=== PATIENT | female | born 1955 | race Caucasian/White ===

== ENCOUNTER → 2017-10-28 09:41 | Outpatient (CLI) | payer BC, SELFPAY ==
[2017-10-28 12:26] LABS: Anion Gap 10 (5-15); BUN 16 mg/dL (7-18); BUN/Creat Ratio 20.5 RATIO (10-20); Calcium,Total 8.7 mg/dL (8.5-10.1); Chloride 106 mmol/L (98-107); Creatinine, Serum 0.78 mg/dL (0.55-1.02); EST Glomerular Filtration Rate 80 mL/min (>60); Est Glom Filt Rate - Afr Amer 96 mL/min (>60); Glucose 99 mg/dL (70-110); Potassium 3.6 mmol/L (3.5-5.1); Sodium Level 142 mmol/L (136-145)
== END ==
PROVIDERS: Nurse Practitioner Family; Family Provider Internal Medicine; PCP Internal Medicine; Visit Provider Internal Medicine
DX: Z12.31 Encounter for screening mammogram for malignant neoplasm of breast (principal)
CPT/HCPCS: 36415; 80048

== ENCOUNTER → 2018-02-10 08:06 | Outpatient (CLI) | payer BC, SELFPAY ==
[2018-02-10 12:19] LABS: Cholesterol 147 mg/dL (200); High Density Lipoprotein 50 mg/dL; T4 Free Direct 1.27 ng/dL (0.76-1.46); Thyroid Stim Hormone (TSH) 1.56 uIU/mL (0.358-3.74); Triglycerides 128 mg/dL; Very Low Density Lipoprotein 26 mg/dL (5-40)
== END ==
PROVIDERS: Family Provider Internal Medicine; PCP Internal Medicine; Visit Provider Internal Medicine
DX: R73.03 Prediabetes (principal); E78.5 Hyperlipidemia, unspecified; E03.9 Hypothyroidism, unspecified
CPT/HCPCS: 36415; 80061; 83036; 84439; 84443

== ENCOUNTER → 2018-05-05 10:13 | Outpatient (CLI) | payer BC, SELFPAY ==
[2018-05-05 12:19] LABS: Anion Gap 7 (5-15); BUN 15 mg/dL (7-18); BUN/Creat Ratio 17.2 RATIO (10-20); Chloride 106 mmol/L (98-107); Creatinine, Serum 0.87 mg/dL (0.55-1.02); EST Glomerular Filtration Rate 70 mL/min (>60); Est Glom Filt Rate - Afr Amer 85 mL/min (>60); Glucose 85 mg/dL (74-106); Potassium 3.4 mmol/L (3.5-5.1); Sodium Level 144 mmol/L (136-145)
== END ==
PROVIDERS: Family Provider Internal Medicine; PCP Internal Medicine; Visit Provider Internal Medicine
DX: I10 Essential (primary) hypertension (principal)
CPT/HCPCS: 36415; 80048

== ENCOUNTER → 2018-08-11 11:34 | Outpatient (CLI) | payer BC, SELFPAY ==
[2018-08-11 14:23] LABS: Anion Gap 9 (5-15); BUN 13 mg/dL (7-18); BUN/Creat Ratio 17.9 RATIO (10-20); Calcium,Total 8.8 mg/dL (8.5-10.1); Chloride 104 mmol/L (98-107); Creatinine, Serum 0.73 mg/dL (0.55-1.02); EST Glomerular Filtration Rate 86 mL/min (>60); Est Glom Filt Rate - Afr Amer 104 mL/min (>60); Glucose 84 mg/dL (74-106); Potassium 3.6 mmol/L (3.5-5.1); Sodium Level 140 mmol/L (136-145)
== END ==
PROVIDERS: Family Provider Internal Medicine; PCP Internal Medicine; Referring Provider Internal Medicine; Visit Provider Internal Medicine
DX: I10 Essential (primary) hypertension (principal); E87.6 Hypokalemia
CPT/HCPCS: 36415; 80048

== ENCOUNTER 2018-09-13 08:03 | Day surgery (SDC) | payer BC, SELFPAY ==
[2018-09-13] VITALS (7 sets, daily range): BP systolic 103–137; BP diastolic 58–76; PULSE 69–86; RESP 16–18; TEMP 36.6; O2SAT 98–100; BMI 27.4
--- NOTE | 2018-09-13 08:43 | H&P.OPEN ---
History of Present Illness Date of Admission: 09/13/18 The patient is a 63 year old F presents for a screening colonoscopy. Patient states she has vomited once daily, denies blood. Denies any family history of colon cancer. Patient states she had a scope 10 years ago which was negative. Past Medical/Surgical History - Planned Operation Planned Operative Procedure/s: colonoscopy open access Date of Operative Procedure: 09/13/18 Permit Signed: No S.O.S: No Is This Patient Having a Total Joint: No - Previous Hospitalizations/Surgeries HX Hospitalizations: No HX of Surgeries: hysteroscopy d&c ablation. tonsillectomy. tubal ligation. colonoscopy 10 yrs ago Any Problems With Anesthesia: No You/Your Family Experience Fever (Hyperthermia) With Anes: No Cholinesterase deficiency: No - Cardiovascular Hx Chest Pain within Last 2 months: No Hx of Irregular Heartbeat and/or Afib: No - murmur as child Hx Heart Attack: No Hx Congestive Heart Failure: No Hx Rheumatic Fever: No Hx Hypertension: Yes - controlled with med Hx Internal Defibrillator: No Hx Pacemaker: No Hx Cardiac Catheterization: No Hx Cardiac Surgery/Stents/Etc.: No Hx Stress Test: No HX Edema: No Hx Pain in Legs when Walking/Leg Cramps: No - Respiratory Chronic Cough: Yes - lisinopril cough HX of Shortness of Breath: Yes - slightly sob with 2 flights of stairs Hoarseness: No Hx Chronic Obstructive Pulmonary Disease (COPD): No Hx Asthma: No Hx Emphysema: No Hx Sleep Apnea: No Hx Oxygen Use at Home: No Hx Respiratory Tract Infection/Cold (presently): No Do You Snore Loudly (louder than talking or can be heard): Yes Do You Often Feel Tired/ Fatigued/ Sleepy Dring Daytime?: No Has Anyone Observed You Stop Breathing During Sleep?: No Result (for STOP score): Positive Hx Smoking: No Smoking Status: Never smoker - Gastrointestinal Hx Gastroesophageal Reflux: No Hx Gastrointestinal Disorders: No Hx Gastrointestinal Bleed: No Hx Ulcer: No Hx Hiatal Hernia: No Difficulty Chewing/Swallowing: No Recent Onset of Swallowing Problems: No Special diet followed at home: No Hx Unplanned Weight Loss of 20#: No HX Unplanned Weight Gain of 20#: No - Neurological Hx Seizures: No HX Syncope/Blackout Spells/Unconsciousness: No Hx CVA/Stroke: No Hx Transient Ischemic Attacks (TIA): No Hx Multiple Sclerosis: No Hx Parkinson's Disease: No Hx Head/Neck Injury: No Hx Headaches: No Hx Back Injury/Pain: Yes - occ Recent Onset of Speech Difficulty: No Restless Legs: No Does patient have nerve stimulator: No Patient instructed to have device shut off: No Rep notified?: No - Blood Disorder Hx Leukemia: No Bleeding Tendencies: No Hx Deep Vein Thrombosis: No Hx High Cholesterol: Yes - on med Blood Transmitted Disease: No Hx Hepatitis: No Hx Cirrhosis: No Hx Anemia: No Hx Blood Disorders: No - Reproduction : No Is Patient Lactating: No Hx Hysterectomy: No Hx Tubal Ligation: Yes Are You Post Menopause: Yes - Genitourinary Hx Renal Disease: No - Musculoskeletal Hx Arthritis: Yes Hx Rheumatoid Arthritis: No Hx Gout: No Recent Onset of an Orthopedic Problem: No - Endocrine Hx Diabetes: No Thyroid Disease: Yes - on med Hx Steroid Therapy: No - Psycho/Social Hx Substance Use: No Hx Alcohol Use: No Hx Anxiety: No Hx Depression: No Mental Illness: No Hx Dementia: No - Miscellaneous Hx Cancer: No Recent Exposure to Contagious Disease: No Active MRSA: No Hx of C-Diff: No Any Loose Teeth: No Allergies lisinopril Adverse Reaction (Verified 09/05/18 14:59) cough - Discharge Is Pt Admitted From a Prison, or a Senior Living: No Who Could Help: family After D/C, Where Do you Plan to Go: Return Home - From the PAT History Number of Risk Factors: 2 - Physical Exam General: Alert, Oriented x3, Cooperative, No apparent distress HEENT: Atraumatic Lungs: Normal air movement Cardiovascular: Regular rate Abdomen: Soft, Non Tender - No peritoneal signs, Non-Distended Extremities: No clubbing, No cyanosis, No edema Neurological: Cranial nerves II-XII grossly intact Psych/Mental Status: Normal Affect Vital Signs Temp Pulse Resp BP Pulse Ox 97.8 F 78 18 137/76 H 100 09/13/18 08:18 09/13/18 08:18 09/13/18 08:18 09/13/18 08:18 09/13/18 08:18 Oxygen Delivery Method Room Air Weight: 172 lb 13.478 oz Body Mass Index (BMI) 27.4 Assessment/Plan All Active Problems (Last Reviewed 11/09/18 @ 10:33 by Suki Brown) Prediabetes (Acute) 63-year-old female for screening for colon cancer Surgery Risks - Colonoscopy I discussed with the patient the risks of the procedure: Yes Risks Include but are not Limited To: Risks include but are not limited to: Bleeding, perforation requiring further surgery, inability to complete colonoscopy requiring barium enema. Patient and her no further questions at this time
--- NOTE | 2018-09-13 09:00 | COLBX_PTH ---
PATIENT: ROSELIA CERVANTES LOC: EN U#:[id number] AGE/SX: 63/F ROOM: RE09/13/[address]: Dr. Adela Garcia MD : 1955 BED: DIS: 09/13/2018 SPEC #: [id number] RECD: 09/13/18 10:42 STATUS: AG RESarbjit #: [id number] JIMBO: 09/13/18 09:[address]: Adela Garcia DEPT: SURGICAL PATHOLOGY RECD BY: Ricardo Garrett ENTERED: 09/13/18 11:29 SP TYPE: COLON BX OTHR DR: Dr. Sarah Mcgraw MD Tissues: Rectum, NOS Procedures: Surgery Specimen Level IV HEADER OPERATION: Colonoscopy PRE-OP DIAGNOSIS: Screening TISSUE SUBMITTED: Rectum biopsy MICROSCOPIC DIAGNOSIS Rectum, biopsy: Hyperplastic polyp. SJ:josephine 09/14/18 MICROSCOPIC DESCRIPTION Slides are reviewed. GROSS DESCRIPTION Received in fixative is one container labeled with the patient's name and designated rectum biopsy. The specimen consists of one irregular fragment of light madden soft tissue that measures 0.3 x 0.3 x 0.1 cm. The specimen is totally submitted in one cassette. / SJ:josephine 09/13/18 TC:1 CPT: 33665
--- NOTE | 2018-09-13 09:20 | OP.ENDO_ITS ---
Patient Name: Ledy Steel Procedure Date: 09/13/2018 8:33 AM Date of : 1955 Age: 63 Procedure: Colonoscopy Indications: Screening for colorectal malignant neoplasm Providers: Adela Garcia MD Referring MD: Sarah Mcgraw MD Medicines: Monitored Anesthesia Care Patient Profile: This is a 63 year old female. Last Colonoscopy: 10 years ago. Complications: No immediate complications. Procedure: Pre-Anesthesia Assessment: - Prior to the procedure, a History and Physical was performed, and patient medications and allergies were reviewed. The patient's tolerance of previous anesthesia was also reviewed. The risks and benefits of the procedure and the sedation options and risks were discussed with the patient. All questions were answered, and informed consent was obtained. Prior Anticoagulants: The patient has taken no previous anticoagulant or antiplatelet agents. ASA Grade Assessment: II - A patient with mild systemic disease. After reviewing the risks and benefits, the patient was deemed in satisfactory condition to undergo the procedure. After I obtained informed consent, the scope was passed under direct vision. Throughout the procedure, the patient's blood pressure, pulse, and oxygen saturations were monitored continuously. The Colonoscope was introduced through the anus and advanced to the cecum, identified by the appendiceal orifice, ileocecal valve and palpation. The colonoscopy was performed without difficulty. The patient tolerated the procedure well. The quality of the bowel preparation was good. Scope In: 8:52:01 AM Scope Withdrawal Time 0 hours 8 minutes 30 seconds Scope Out: 9:13:56 AM Total Procedure Duration Time 0 hours 21 minutes 55 seconds Findings: The perianal and digital rectal examinations were normal. A less than 5 mm polyp was found in the rectum. The polyp was sessile. The polyp was removed with a cold biopsy forceps. Resection and retrieval were complete. Non-bleeding internal hemorrhoids were found during retroflexion. The hemorrhoids were Grade I (internal hemorrhoids that do not prolapse). The exam was otherwise without abnormality. The entire examined colon appeared normal. Impression: - One less than 5 mm polyp in the rectum, removed with a cold biopsy forceps. Resected and retrieved. - Non-bleeding internal hemorrhoids. - The examination was otherwise normal. Recommendation: - Discharge patient to home. - Continue present medications. - Repeat colonoscopy in 5-10 years for surveillance based on pathology results. Procedure Code(s): --- Professional --- 24168, PT, Colonoscopy, flexible; with biopsy, single or multiple Diagnosis Code(s): --- Professional --- Z12.11, Encounter for screening for malignant neoplasm of colon K62.1, Rectal polyp K64.0, First degree hemorrhoids CPT copyright 2017 [employer]. All rights reserved. The codes documented in this report are preliminary and upon tape making machine operator review may be revised to meet current compliance requirements. MD Adela Troy MD 09/13/2018 9:20:19 AM This report has been signed electronically. Number of Addenda: 0 Note Initiated On: 09/13/2018 8:33 AM
--- OUTSIDE RECORDS SUMMARY | 2018-10-30 03:04 | XMS RPT_ITS ---
:1955 Author Organization OHIP Support Name Relationship Address Phone RENNY CERVATNES Unavailable [address] + [place] [address] R Unavailable Unavailable Unavailable RENNY CERVANTES Unavailable [address] + [place] [address] R Unavailable Unavailable Unavailable RENNY CERVANTES Unavailable [address] + [place] [address] R Unavailable Unavailable Unavailable RENNY CERVANTES Unavailable [address] + [place] [address] R Unavailable Unavailable Unavailable RENNY CERVANTES Unavailable [address] + [place] [address] R Unavailable Unavailable Unavailable RENNY CERVANTES Unavailable [address] + [place] [address] R Unavailable Unavailable Unavailable RENNY CERVANTES Unavailable [address] + [place] [address] R Unavailable Unavailable Unavailable RENNY CERVANTES Unavailable [address] [phone] [place] [address] R Unavailable Unavailable Unavailable RENNY CERVANTES Unavailable [address] [phone] [place] [address] R Unavailable Unavailable Unavailable RENNY CERVANTES Unavailable [address] + [place] [address] R Unavailable Unavailable Unavailable RENNY CERVANTES Unavailable [address] + [place] [address] R Unavailable Unavailable Unavailable RENNY CERVANTES Unavailable [address] + [place] [address] R Unavailable Unavailable Unavailable Care Team Providers Name Role Phone IRIS SANTACRUZ (CAYDEN) Attending Unavailable HARLAN, EFEWONGBE B Referring Unavailable IRIS SANTACRUZ (CAYDEN) Referring Unavailable Yoelham, Adela Attending Unavailable Yoelham, Adela Referring Unavailable Oleghe, Efewongbe Primary Care Unavailable Robotham, Adela Consulting Unavailable Oleghe, Efewongbe Attending Unavailable Oleghe, Efewongbe Referring Unavailable Oleghe, Efewongbe Primary Care Unavailable Oleghe, Efewongbe Attending Unavailable Oleghe, Efewongbe Referring Unavailable Oleghe, Efewongbe Primary Care Unavailable Macho Muñoz POND WORKER-C Attending Unavailable Oleghe, Efewongbe Referring Unavailable Oleghe, Efewongbe Primary Care Unavailable Oleghe, Efewongbe Attending Unavailable Oleghe, Efewongbe Referring Unavailable Oleghe, Efewongbe Primary Care Unavailable Oleghe, Efewongbe Attending Unavailable Oleghe, Efewongbe Referring Unavailable Oleghe, Efewongbe Primary Care Unavailable Oleghe, Efewongbe Attending Unavailable Oleghe, Efewongbe Referring Unavailable Oleghe, Efewongbe Primary Care Unavailable Oleghe, Efewongbe Attending Unavailable Oleghe, Efewongbe Referring Unavailable Oleghe, Efewongbe Primary Care Unavailable Oleghe, Efewongbe Attending Unavailable Oleghe, Efewongbe Referring Unavailable Oleghe, Efewongbe Attending Unavailable Oleghe, Efewongbe Referring Unavailable Oleghe, Efewongbe Primary Care Unavailable Nurse, Standard Attending Unavailable Oleghe, Efewongbe Referring Unavailable Robotham, Adela Attending Unavailable Robotham, Adela Referring Unavailable Oleghe, Efewongbe Primary Care Unavailable PROBLEMS PROBLEMS DATE TYPE CONDITION / CODE ATTENDING STATUS SOURCE 08/29/2018 Active Unknown / IRIS SANTACRUZ Active [facility] UNK(Unknown) (DIRECTOR WRITING) [facility] Rep[facility] 08/29/2018 Active Encounter for NA Active [facility] screening [facility] mammogram for Repository malignant neoplasm of breast / Z12.31(ICD-10) 08/11/2018 Unknown E87.6 - Oleghe, Active [facility] Hypokalemia / [facility] E87.6(ICD-10) Hospital Repository 08/11/2018 Unknown I10 - Essential Oleghe, Active [facility] (primary) [facility] hypertension / Hospital I10(ICD-10) Repository 08/11/2018 Unknown B35.1 - Tinea Oleghe, Active [facility] unguium / [facility] B35.1(ICD-10) Hospital Repository 08/11/2018 Unknown Z12.11 - Encounter Oleghe, Active [facility] for screening for [facility] malignant neoplasm [facility] of colon / Repository Z12.11(ICD-10) 08/11/2018 Unknown Z23 - Encounter Oleghe, Active [facility] for immunization / [facility] Z23(ICD-10) Hospital Repository 02/10/2018 Unknown E03.9 - Oleghe, Active [facility] Hypothyroidism, [facility] unspecified / Hospital E03.9(ICD-10) Repository 02/10/2018 Unknown R73.03 - Oleghe, Active [facility] Prediabetes / [facility] R73.03(ICD-10) Hospital Repository 02/10/2018 Unknown E78.5 - Oleghe, Active [facility] Hyperlipidemia, [facility] unspecified / Hospital E78.5(ICD-10) Repository PROCEDURES PROCEDURES No Procedure Records FoundRESULTS RESULTS OPERATIVE REPORT - Observed: 09/13/2018 Status: F Source: [facility] 9:20 AM [facility] REPOSITORY [facility] Medical Records Department [address] [place] [id number] Operative Report - Endoscopy MR#: [id number] Acct: [id number] Name: LEDY CERVANTES Rep #: [id number] : 1955 63 From: Adela Garcia MD PCP: Sarah Mcgraw MD Status: [facility] Patient Name: Ledy Cervantes Procedure Date: 09/13/2018 8:33 AM Date of : 1955 Age: 63 Procedure: Colonoscopy Indications: Screening for colorectal malignant neoplasm Providers: Adela Garcia MD Referring MD: Sarah Mcgraw MD Medicines: Monitored Anesthesia Care Patient Profile: This is a 63 year old female. Last Colonoscopy: 10 years ago. Complications: No immediate complications. Procedure: Pre-Anesthesia Assessment: - Prior to the procedure, a History and Physical was performed, and patient medications and allergies were reviewed. The patient's tolerance of previous anesthesia was also reviewed. The risks and benefits of the procedure and the sedation options and risks were discussed with the patient. All questions were answered, and informed consent was obtained. Prior Anticoagulants: The patient has taken no previous anticoagulant or antiplatelet agents. ASA Grade Assessment: II - A patient with mild systemic disease. After reviewing the risks and benefits, the patient was deemed in satisfactory condition to undergo the procedure. After I obtained informed consent, the scope was passed under direct vision. Throughout the procedure, the patient's blood pressure, pulse, and oxygen saturations were monitored continuously. The Colonoscope was introduced through the anus and advanced to the cecum, identified by the appendiceal orifice, ileocecal valve and palpation. The colonoscopy was performed without difficulty. The patient tolerated the procedure well. The quality of the bowel preparation was good. Scope In: 8:52:01 AM Scope Withdrawal Time 0 hours 8 minutes 30 seconds Scope Out: 9:13:56 AM Total Procedure Duration Time 0 hours 21 minutes 55 seconds Findings: The perianal and digital rectal examinations were normal. A less than 5 mm polyp was found in the rectum. The polyp was sessile. The polyp was removed with a cold biopsy forceps. Resection and retrieval were complete. Non-bleeding internal hemorrhoids were found during retroflexion. The hemorrhoids were Grade I (internal hemorrhoids that do not prolapse). The exam was otherwise without abnormality. The entire examined colon appeared normal. Impression: - One less than 5 mm polyp in the rectum, removed with a cold biopsy forceps. Resected and retrieved. - Non-bleeding internal hemorrhoids. - The examination was otherwise normal. Recommendation: - Discharge patient to home. - Continue present medications. - Repeat colonoscopy in 5-10 years for surveillance based on pathology results. Procedure Code(s): --- Professional --- 44990, PT, Colonoscopy, flexible; with biopsy, single or multiple Diagnosis Code(s): --- Professional --- Z12.11, Encounter for screening for malignant neoplasm of colon K62.1, Rectal polyp K64.0, First degree hemorrhoids CPT copyright 2017 [employer]. All rights reserved. The codes documented in this report are preliminary and upon propeller mechanic review may be revised to meet current compliance requirements. MD Adela Troy MD 09/13/2018 9:20:19 AM This report has been signed electronically. Number of Addenda: 0 Note Initiated On: 09/13/2018 8:33 AM 09/13/18 0920 Date Adela Garcia MD Cosigner Signature: Date (if indicated) CC: Sarah Mcgraw MD; Adela Garcia MD Date Dictated: 09/13/18832 Date Transcribed: Can Machine Operator: TR Signed COLON BIOPSY (CHOOSE Observed: 09/13/2018 Status: F Source[facility]) 9:00 AM [facility] REPOSITORY Patient: LEDY CERVANTES : 1955 (63/F) Acct Num: [id number] Phys: Jose HINOJOSA,Adela Unit Num: [id number] Loc: EN Specimen: [id number] Received: 09/13/181041 Spec Type: COLON BX TISSUES 1 TISSUES: Rectum, NOS GROSS DESCRIPTION Received in fixative is one container labeled with the patient's name and designated rectum biopsy. The specimen consists of one irregular fragment of light madden soft tissue that measures 0.3 x 0.3 x 0.1 cm. The specimen is totally submitted in one cassette. / DARLENE:josephine 09/13/18 TC:1 CPT: 26849 HEADER OPERATION: Colonoscopy PRE-OP DIAGNOSIS: Screening TISSUE SUBMITTED: Rectum biopsy MICROSCOPIC DESCRIPTION Slides are reviewed. MICROSCOPIC DIAGNOSIS Rectum, biopsy: Hyperplastic polyp. SJ:josephine 09/14/18 Signed Yg Baker 09/14/18 <signature on file> Performed By: #### PCOLBX #### [facility] [address] [place], [place], [address] HISTORY AND PHYSICAL Observed: 09/13/2018 Status: F Source: [facility] 8:45 AM [facility] REPOSITORY [facility] Medical Records Department [address] [place] [address] History and Physical 09/13/18 0843 MR#: [id number] Acct: [id number] Name: LEDY CERVANTES Rep #: [id number] : 1955 63 From: Adela Garcia MD PCP: Sarah Mcgraw MD Status: [facility] Y Location: [place] [address] History of Present Illness Date of Admission: 09/13/18 The patient is a 63 year old F presents for a screening colonoscopy. Patient states she has vomited once daily, denies blood. Denies any family history of colon cancer. Patient states she had a scope 10 years ago which was negative. Past Medical/Surgical History - Planned Operation Planned Operative Procedure/s: colonoscopy open access Date of Operative Procedure: 09/13/18 Permit Signed: No S.O.S: No Is This Patient Having a Total Joint: No - Previous Hospitalizations/Surgeries HX Hospitalizations: No HX of Surgeries: hysteroscopy d AND c ablation. tonsillectomy. tubal ligation. colonoscopy 10 yrs ago Any Problems With Anesthesia: No You/Your Family Experience Fever (Hyperthermia) With Anes: No Cholinesterase deficiency: No - Cardiovascular Hx Chest Pain within Last 2 months: No Hx of Irregular Heartbeat and/or Afib: No - murmur as child Hx Heart Attack: No Hx Congestive Heart Failure: No Hx Rheumatic Fever: No Hx Hypertension: Yes - controlled with med Hx Internal Defibrillator: No Hx Pacemaker: No Hx Cardiac Catheterization: No Hx Cardiac Surgery/Stents/Etc.: No Hx Stress Test: No HX Edema: No Hx Pain in Legs when Walking/Leg Cramps: No - Respiratory Chronic Cough: Yes - lisinopril cough HX of Shortness of Breath: Yes - slightly sob with 2 flights of stairs Hoarseness: No Hx Chronic Obstructive Pulmonary Disease (COPD): No Hx Asthma: No Hx Emphysema: No Hx Sleep Apnea: No Hx Oxygen Use at Home: No Hx Respiratory Tract Infection/Cold (presently): No Do You Snore Loudly (louder than talking or can be heard): Yes Do You Often Feel Tired/ Fatigued/ Sleepy Dring Daytime?: No Has Anyone Observed You Stop Breathing During Sleep?: No Result (for STOP score): Positive Hx Smoking: No Smoking Status: Never smoker - Gastrointestinal Hx Gastroesophageal Reflux: No Hx Gastrointestinal Disorders: No Hx Gastrointestinal Bleed: No Hx Ulcer: No Hx Hiatal Hernia: No Difficulty Chewing/Swallowing: No Recent Onset of Swallowing Problems: No Special diet followed at home: No Hx Unplanned Weight Loss of 20#: No HX Unplanned Weight Gain of 20#: No - Neurological Hx Seizures: No HX Syncope/Blackout Spells/Unconsciousness: No Hx CVA/Stroke: No Hx Transient Ischemic Attacks (TIA): No Hx Multiple Sclerosis: No Hx Parkinson's Disease: No Hx Head/Neck Injury: No Hx Headaches: No Hx Back Injury/Pain: Yes - occ Recent Onset of Speech Difficulty: No Restless Legs: No Does patient have nerve stimulator: No Patient instructed to have device shut off: No Rep notified?: No - Blood Disorder Hx Leukemia: No Bleeding Tendencies: No Hx Deep Vein Thrombosis: No Hx High Cholesterol: Yes - on med Blood Transmitted Disease: No Hx Hepatitis: No Hx Cirrhosis: No Hx Anemia: No Hx Blood Disorders: No - Reproduction : No Is Patient Lactating: No Hx Hysterectomy: No Hx Tubal Ligation: Yes Are You Post Menopause: Yes - Genitourinary Hx Renal Disease: No - Musculoskeletal Hx Arthritis: Yes Hx Rheumatoid Arthritis: No Hx Gout: No Recent Onset of an Orthopedic Problem: No - Endocrine Hx Diabetes: No Thyroid Disease: Yes - on med Hx Steroid Therapy: No - Psycho/Social Hx Substance Use: No Hx Alcohol Use: No Hx Anxiety: No Hx Depression: No Mental Illness: No Hx Dementia: No - Miscellaneous Hx Cancer: No Recent Exposure to Contagious Disease: No Active MRSA: No Hx of C-Diff: No Any Loose Teeth: No Allergies lisinopril Adverse Reaction (Verified 09/05/18 14:59) cough - Discharge Is Pt Admitted From a Prison, or a Correction: No Who Could Help: family After D/C, Where Do you Plan to Go: Return Home - From the PAT History Number of Risk Factors: 2 - Physical Exam General: Alert, Oriented x3, Cooperative, No apparent distress HEENT: Atraumatic Lungs: Normal air movement Cardiovascular: Regular rate Abdomen: Soft, Non Tender - No peritoneal signs, Non-Distended Extremities: No clubbing, No cyanosis, No edema Neurological: Cranial nerves II-XII grossly intact Psych/Mental Status: Normal Affect Vital Signs Temp Pulse Resp BP Pulse Ox 97.8 F 78 18 137/76 H 100 09/13/18 08:18 09/13/18 08:18 09/13/18 08:18 09/13/18 08:18 09/13/18 08:18 Oxygen Delivery Method Room Air Weight: 172 lb 13.478 oz Body Mass Index (BMI) 27.4 Assessment/Plan All Active Problems (Last Reviewed 08/11/18 @ 10:33 by Suki Brown) Prediabetes (Acute) 63-year-old female for screening for colon cancer Surgery Risks - Colonoscopy I discussed with the patient the risks of the procedure: Yes Risks Include but are not Limited To: Risks include but are not limited to: Bleeding, perforation requiring further surgery, inability to complete colonoscopy requiring barium enema. Patient and her no further questions at this time 09/13/18 0845 <Electronically signed by Adela Garcia MD> Date Adela Garcia MD Cosigner Signature: Date (if applicable) CC: Sarah Mcgraw MD; Adela Garcia MD Signed CNCO Observed: 08/29/2018 Status: COMPLETED Source: [place] 12:28 PM [facility] REPOSITORY HNO ID: [id number] Author: Mammography Coordinator Service: (none) Author Type: Physician Type: Letter Filed: 08/30/2018 11:32 PM Note Text: August 29, 2018 PID: [id number] Ledy Cervantes [address] [place] [address] [address] [place] [address] Dear Ms. Cervantes, We are pleased to inform you that the results of your recent breast imaging exam on 08/29/2018 are normal. Early detection of cancer is very important. We also understand recommendations regarding breast cancer screening are controversial. Please discuss with your primary care provider which strategy is best for you and whether a mammogram is right for you. Your imaging studies and report will be kept on file at [facility] as part of your permanent medical record and are available for your continuing care. Thank you for allowing us to help in meeting your health care needs. Sincerely, Dr. Mccain Interpreting Radiologist [facility] (Normal over 40) PROGRESS Observed: 08/29/2018 Status: COMPLETED Source: [place] 10:39 AM [facility] REPOSITORY HNO ID: [id number] Author: Iris Santacruz Service: (none) Author Type: Nurse Practitioner Type: Progress Notes Filed: 08/29/2018 11:15 AM Note Text: Ledy Cervantes is a 63 year old who presents for her annual gynecologic exam without complaints. Traveled to [place] and [place] this summer. Postmenopausal: Yes since age 57 HRT use: No. Last Pap: 2015 normal HPV: 2010 negative History of abnormal pap: No Last mammogram: today results pending History of abnormal mammogram: No Sexually active: Yes, occasionally Time with current partner: care home Pain with intercourse: No Postcoital bleeding: No Hot flashes: No Night sweats: No Vaginal dryness: Yes, [place] Mood swings: No Insomnia: No Exercise: walking Diet: balanced Seatbelt use: Yes Obstetric History T4 L4 SAB0 TAB0 Ectopic0 Multiple0 Live Births0 PAST MEDICAL HISTORY Diagnosis Date - Benign neoplasm of colon - Hypertension - Osteoarthrosis, unspecified whether generalized or localized, other specified sites Osteoarthritis - Other and unspecified hyperlipidemia - Unspecified hypothyroidism - Unspecified nontoxic nodular goiter PAST SURGICAL HISTORY Procedure Laterality Date - COLONOSCOPY W/BX 08/15/08 Repeat in - FNA WITH IMAGING 09/08/10 U/S FNA bilateral thyroid nodules - LIGATE FALLOPIAN TUBE - REMOVAL OF TONSILS,<12 Y/O Tonsillectomy - THERMAL ENDOMETRIAL ABLATION 2012 [facility] FAMILY HISTORY Problem Relation Age of Onset - Hypertension Mother - Thyroid Mother - Hypertension Father - Coronary Artery Disease Father cabg,valve replacement - Allergies Father - Cervical Cancer Sister - other (Pancreatic cancer) Other 45 Niece - Thyroid Sister - Thyroid Sister - Cancer Sister Lymphoma. SOCIAL HISTORY Social History Substance Use Topics - Smoking status: Never Smoker - Smokeless tobacco: Never Used Comment: No smoking in childhood or current homes. - Alcohol use No REVIEW OF SYSTEMS Abdomen: No abdominal pain, nausea, vomiting, diarrhea, or constipation. No bloating, early satiety, indigestion, or increased flatulence. Bladder: No dysuria, gross hematuria, urinary frequency, urinary urgency, or incontinence. Stress incontinence with coughing, wears pad. Breast: No breast lumps, nipple d/c, overlying skin changes, redness or skin retraction Allergies and current medication updated:Yes EXAM: BP 118/60 Ht 5' 6.5 (1.69m) Wt 175 lb (79.4kg) LMP 07/12/2011 BMI 27.83 kg/(m2). GENERAL: pleasant, female in no apparent distress HEENT: Normocephalic, atraumatic, mucus membranes moist and no lesions NECK: Supple, full range of motion, no adenopathy and thyroid normal DERMATOLOGY: Normal, without lesions, non-icteric and non-hirsute BREAST: soft, non-tender, symmetric, no dominant mass, normal nipple-areolar complex, no lymphadenopathy and no nipple discharge CHEST: Normal inspiratory effort ABDOMEN: soft, non-tender and no masses PELVIC: external genitalia normal, normal Bartholin's glands, urethra, Cochran's glands, no vulvar lesions, no cervical lesions, good vaginal support, physiologic discharge present, normal appearing perineal body and perianal region BIMANUAL: uterus normal size, shape and consistency, no adnexal masses and non-tender RECTOVAGINAL: deferred. NEURO: alert and oriented x3,exam grossly non-focal EXTREMITIES: normal ASSESSMENT/PLAN: 1) Health maintenance: Pap/HPV up to date. Mammogram ordered Mammogram up to date Nutrition, exercise and routine health maintenance exams reviewed. Calcium/Vitamin D supplementation information provided. Colon cancer screening: scheduled for this month Stress incontinence - reviewed Kegel exercises. 2) Follow up one year or sooner as needed Iris Santacruz APRN.DIRECTOR WRITING CNOV Observed: 08/29/2018 Status: COMPLETED Source: [place] 10:[address] [facility] REPOSITORY Office Visit (WOOB) LEDY CERVANTES ([id number]) 1955 F Date Time Provider Department 08/29/18 10:30 AM IRIS SANTACRUZ (CAYDEN) WOMARJORIE During your visit today, we recorded the following information about you: Blood pressure Weight Height 118/60 79.4 kg 1.689 m Iris Santacruz APRN.CNP 08/29/2018 11:15 AM Signed Ledy Cervantes is a 63 year old who presents for her annual gynecologic exam without complaints. Traveled to [place] and [place] this summer. Postmenopausal: Yes since age 57 HRT use: No. Last Pap: 2015 normal HPV: 2010 negative History of abnormal pap: No Last mammogram: today results pending History of abnormal mammogram: No Sexually active: Yes, occasionally Time with current partner: care home Pain with intercourse: No Postcoital bleeding: No Hot flashes: No Night sweats: No Vaginal dryness: Yes, [place] Mood swings: No Insomnia: No Exercise: walking Diet: balanced Seatbelt use: Yes Obstetric History T4 L4 SAB0 TAB0 Ectopic0 Multiple0 Live Births0 PAST MEDICAL HISTORY Diagnosis Date - Benign neoplasm of colon - Hypertension - Osteoarthrosis, unspecified whether generalized or localized, other specified sites Osteoarthritis - Other and unspecified hyperlipidemia - Unspecified hypothyroidism - Unspecified nontoxic nodular goiter PAST SURGICAL HISTORY Procedure Laterality Date - COLONOSCOPY W/BX 08/15/08 Repeat in - FNA WITH IMAGING 09/08/10 U/S FNA bilateral thyroid nodules - LIGATE FALLOPIAN TUBE - REMOVAL OF TONSILS,<12 Y/O Tonsillectomy - THERMAL ENDOMETRIAL ABLATION 2012 [facility] FAMILY HISTORY Problem Relation Age of Onset - Hypertension Mother - Thyroid Mother - Hypertension Father - Coronary Artery Disease Father cabg,valve replacement - Allergies Father - Cervical Cancer Sister - other (Pancreatic cancer) Other 45 Niece - Thyroid Sister - Thyroid Sister - Cancer Sister Lymphoma. SOCIAL HISTORY Social History Substance Use Topics - Smoking status: Never Smoker - Smokeless tobacco: Never Used Comment: No smoking in childhood or current homes. - Alcohol use No REVIEW OF SYSTEMS Abdomen: No abdominal pain, nausea, vomiting, diarrhea, or constipation. No bloating, early satiety, indigestion, or increased flatulence. Bladder: No dysuria, gross hematuria, urinary frequency, urinary urgency, or incontinence. Stress incontinence with coughing, wears pad. Breast: No breast lumps, nipple d/c, overlying skin changes, redness or skin retraction Allergies and current medication updated:Yes EXAM: BP 118/60 Ht 5' 6.5 (1.69m) Wt 175 lb (79.4kg) LMP 07/12/2011 BMI 27.83 kg/(m2). GENERAL: pleasant, female in no apparent distress HEENT: Normocephalic, atraumatic, mucus membranes moist and no lesions NECK: Supple, full range of motion, no adenopathy and thyroid normal DERMATOLOGY: Normal, without lesions, non-icteric and non-hirsute BREAST: soft, non-tender, symmetric, no dominant mass, normal nipple-areolar complex, no lymphadenopathy and no nipple discharge CHEST: Normal inspiratory effort ABDOMEN: soft, non-tender and no masses PELVIC: external genitalia normal, normal Bartholin's glands, urethra, Cochran's glands, no vulvar lesions, no cervical lesions, good vaginal support, physiologic discharge present, normal appearing perineal body and perianal region BIMANUAL: uterus normal size, shape and consistency, no adnexal masses and non-tender RECTOVAGINAL: deferred. NEURO: alert and oriented x3,exam grossly non-focal EXTREMITIES: normal ASSESSMENT/PLAN: 1) Health maintenance: Pap/HPV up to date. Mammogram ordered Mammogram up to date Nutrition, exercise and routine health maintenance exams reviewed. Calcium/Vitamin D supplementation information provided. Colon cancer screening: scheduled for this month Stress incontinence - reviewed Kegel exercises. 2) Follow up one year or sooner as needed Iris Santacruz APRN.CAYDEN Referring Provider: SARAH MCGRAW [[id number]] Allergies As of Date: 08/29/2018 Noted Allergy Reaction LIPITOR (ATORVASTATIN CALCIUM) 07/31/2015 14 - Other: See Comments Comments: Chalky throat Date Reviewed: 08/29/2018 Reviewed by: Iris Santacruz - Fully Assessed Reason for Visit: Yearly Exam [187] Primary Visit Diagnosis:Encounter for gynecological examination (general) (routine) without abnormal findings [Z01.419] Other Visit Diagnoses:Encounter for screening mammogram for breast cancer [Z12.31] Stress incontinence [N39.3] Order(s):ASIA SCREENING [[id number]] Order #: [id number] FUTURE Prescriptions as of 08/29/2018 Sig: AMLODIPINE 2.5 MG TABLET Take 2.5 mg by mouth once valeria* LORATADINE 10 MG TABLET Take 10 mg by mouth once jess* POTASSIUM CHLORIDE. ACYCLOVIR 400 MG TABLET Take 400 mg by mouth. LEVOTHYROXINE 88 MCG TABLET Take 1 tablet by mouth once d* ROSUVASTATIN 10 MG TABLET Take 1 tablet by mouth once d* HYDROCHLOROTHIAZIDE 25 MG TAB* TK 1 T PO QD LOSARTAN 100 MG TABLET TK 1 T PO QD LUTEIN 20 MG CAPSULE TK ONE C PO QD POTASSIUM CHLORIDE ER 10 MEQ * TK ONE C PO QD ASPIRIN 81 MG TABLET,DELAYED * 81 mg every other day. ALBUTEROL SULFATE HFA 90 MCG/* Inhale 2 Puffs as instructed * CICLOPIROX 8 % TOPICAL SOLUTI* Apply 1 application to affect* NAPROXEN 500 MG TABLET Take 1 tablet by mouth twice * LUTEIN 20 MG TABLET Take by mouth. CICLOPIROX 8 % TOPICAL SOLUTI* Apply 1 application to affect* CALCIUM CARBONATE 600 MG (1,5* Take 1 tablet by mouth once d* MULTIVITAMIN TABLET Take 1 tablet by mouth once d* Problem List As Of Date 08/29/2018 Noted Resolved OSTEOARTHROS NOS-OTHER SITE [M19.90] More... NONTOX NODUL GOITER NOS [E04.9] Hypothyroidism [E03.9] 07/31/2015 Hyperlipidemia [E78.5] INVALID FOR*02/04/2016 CALCANEAL SPUR [M77.30] INVALID FOR* Ovarian cystic mass [N83.209] INVALID FOR*07/09/2011 Endometrial thickening on ultra sound [R93.89] INVALID FOR*07/09/2011 Menorrhagia [N92.0] INVALID FOR*08/26/2017 Essential hypertension [I10] INVALID FOR* More... 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 Hyperlipidemia [E78.5] INVALID FOR* Medications Discontinued During This Encounter benzonatate (TESSALON PERLE) 100 mg * 60 c* 0 11/23/2016 08/29/2018 Route: ORAL Sig: Take 2 capsules by mouth three times daily as needed. Patient not taking: Reported on 08/26/2017 Disc: Reason for discontinue is not on file. losartan-hydrochlorothiazide (HYZAAR* 08/01/2017 08/29/2018 Class: Historical Med Sig: HYZAAR 50-12.5 MG TABS Disc: Reason for discontinue is not on file. Disposition: Return in 1 year (on 08/29/2019) for Annual Exam. Follow-up and Disposition History Recorded Encounter Status:Closed by IRIS SANTACRUZ on 08/29/18 ASIA SCREENING Observed: 08/29/2018 Status: F Source: [place] 10:25 AM [facility] REPOSITORY * * *Final Report* * * DATE OF EXAM: Aug 29 2018 10:25AM [facility] - [facility] SCREENING / PROCEDURE REASON: Encounter for screening mammogram for breast cancer * * * * Physician Interpretation * * * * RESULT: #[id number] - [facility] SCREENING BILATERAL DIGITAL SCREENING MAMMOGRAM WITH CAD: 08/29/2018 HISTORY: Encounter For Screening Mammogram For Breast Cancer /Screening Mammogram - patient reports NO breast symptoms /Priors available for comparison. RESULT: TECHNIQUE: The study was acquired using full field digital technology and interpreted from soft copy. Current study was also evaluated with a Computer Aided Detection (CAD). Comparison is made to exams dated: 08/26/2017 mammogram, 08/03/2016 mammogram, 07/30/2015 mammogram, and 09/14/2013 mammogram - [facility]. There are scattered fibroglandular elements in both breasts. No significant masses, calcifications, or other findings are seen in either breast. There has been no significant interval change. IMPRESSION: There is no mammographic evidence of malignancy. A 1 year screening mammogram is recommended. Sneha taylor/lalo:08/29/2018 12:28:32 Collaborating Supervising Physician(s): RT Juan(Александр)(M), [facility] letter sent: Normal over 40 Mammogram BI-RADS: 1 Negative Multiple national specialty organizations have released breast cancer screening guidelines for women at average risk for developing breast cancer - guidelines that are based on both evidence and opinion, yet differ on when to start and how often to screen for breast cancer. With representation from Breast Imaging, Internal Medicine, Women's Health, Family Medicine, and Medical/Surgical Oncology, the [facility] has carefully reviewed the data and reached the following consensus: 1) All women should engage in shared decision-making with their providers to decide when to start and how often to screen; 2) All women should have the opportunity to start screening mammography at age 40; 3) For women ages 45-55, we recommend annual screening mammograms; 4) For women ages 55 and over, we support both the transition from an annual to a biennial interval if this aligns more with patient's values and preferences, or continuation with annual screening; 5) All women should discuss with their providers when to stop screening mammograms. Can Machine Operator: Lalo Transcribe Date/Time: Aug 29 2018 10:06A Dictated by: SNEHA MCCAIN MD This examination was interpreted and the report reviewed and electronically signed by: SNEHA MCCAIN MD on Aug 29 2018 12:28PM EST [id number] INTERNAL MEDICINE Observed: 08/14/2018 Status: F Source: [place] OFFICE VISIT 4:29 PM [facility] [address] [place] [address] [address] [place] [address] OFFICE VISIT Date of Service: 08/11/18 MR#: [id number] Acct: [id number] Name: LEDY CERVANTES Rep #: [id number] : 1955 Provider: Sarah Mcgraw MD Age/Sex: 63/F Location: [facility] Status: Signed Intake Vital Signs08/11/18 Height 5 ft 7 in 08/11/18 Weight: 180 lb 08/11/18 Body Mass Index (BMI) 28.1 08/11/18 Blood Pressure 130/83 H 08/11/18 Blood Pressure Location Lt brachial Intake Visit Reasons: 3 MO F/U Chief Complaint: 3 Mo follow-up visit Is patient in pain?: No Allergies No Known Allergies Allergy (Unverified 08/11/18 10:31) Medications calcium carbonate-vitamin D3 600 mg (1,500 mg)-400 unit capsule cap PO 09/09/17 [History Confirmed 08/11/18] multivitamin capsule 1 cap PO QDAY 09/09/17 [History Confirmed 08/11/18] amlodipine 2.5 mg tablet 2.5 mg PO QDAY #90 tab 07/26/18 [Rx Confirmed 08/11/18] hydrochlorothiazide 25 mg tablet 25 mg PO QDAY #90 tab 07/26/18 [Rx Confirmed 08/11/18] levothyroxine 88 mcg tablet 88 mcg PO QDAY #90 tab 07/26/18 [Rx Confirmed 08/11/18] loratadine 10 mg tablet 10 mg PO QDAY PRN #90 tab 07/26/18 [Rx Confirmed 08/11/18] losartan 100 mg tablet 100 mg PO QDAY #90 tab 07/26/18 [Rx Confirmed 08/11/18] lutein 20 mg capsule 20 mg PO QDAY #90 cap 07/26/18 [Rx Confirmed 08/11/18] naproxen 500 mg tablet 500 mg PO BID PRN #120 tab 07/26/18 [Rx Confirmed 08/11/18] potassium chloride ER 10 mEq capsule,extended release 10 meq PO QDAY #90 cap 07/26/18 [Rx Confirmed 08/11/18] rosuvastatin 10 mg tablet 10 mg PO QDAY #90 tab 07/26/18 [Rx Confirmed 08/11/18] PFSH Medical History Seasonal allergies (Chronic) Prediabetes (Acute) Hypothyroid (Chronic) Hyperlipidemia (Chronic) Hypertension (Chronic) Arthritis (Acute) Thyroid nodule (Acute) Surgical History H/O tubal ligation (Acute) Hx of tonsillectomy (Acute) uterine ablasion (Acute) Family History Mother Hypertension Heart disease Myocardial infarction age 87 Thyroid disorder Hyperlipidemia Father Hyperlipidemia Hypertension Arthritis Aunt Breast cancer Social History Smoking Status: Never smoker alcohol intake: never substance use type: does not use what type of physical activity do you participate in: none HPI HPI Chief Complaint: 3 Mo follow-up visit Details: LEDY CERVANTES, is a 63yo F who presents to the office today for follow-up of her chronic medical conditions. During her last visit she had adjustments to her amlodipine. Blood pressure has remained stable. Blood pressure during his visit is 130/83 mmHg. She denies palpitations, chest pain or shortness of breath. Reports persistent postnasal drip and cough. Currently following up with her ENT due to chronic allergies and is on weekly allergy shots. She does not believe these are helping. She has been on the shots for over a year. ROS Const Constitutional: No chills, fatigue, fever(s), frequent falls, malaise, weakness, sleep problems or change in appetite Eyes Eyes: No blurry vision, change in vision, double vision, discharge or visual disturbances ENT ENT: Positive for post nasal drip; no abnormal hearing, ear pain, ear pressure, tinnitus or dizziness/vertigo Resp Respiratory: No cough, shortness of breath or wheezing Cardio Cardiology: No chest pain at rest, chest pain with exertion, shortness of breath, dyspnea on exertion, generalized swelling, irregular heart rhythm, lightheadedness, orthopnea, fast heart rate or palpitations Gastro GI: No abdominal pain, change in bowel habits, constipation, diarrhea, nausea/dyspepsia or vomiting Genitourinary-Female: No difficulty urinating, burning urination, painful urination, urinary incontinence, urinary frequency, urinary urgency, urinary hesitancy, urinary retention, Frequent nighttime urination/ nocturia, sexual problems, genital lesions, abnormal vaginal bleeding, pelvic pain, vaginal dryness, vaginal odor or Vaginal Itching Musc Musculoskeletal: No joint pain, back pain, joint swelling, limited range of motion, numbness or tingling Skin Skin: No change in skin color, itching, rash or wounds Breast Breast: No breast lump or breast pain Neuro Neurology: No frequent falls, weakness, abnormal hearing, numbness, tingling, unsteady gait/balance, dizziness, loss of vision, memory loss or visual disturbances Psych Psychiatric: No memory loss, No anxiety, No change in appetite, No depression, No Thoughts of harming yourself/Others Endo Endocrine: No fatigue, heat intolerance, increased thirst/drinking, increased hunger or increased urination Aller/Imm Allergy/Immunologic: No wheezing, itchy eyes or seasonal allergy symptoms Dominick/Lymp Hematologic/Lymphatic: No easy bleeding, easy bruising or enlarged lymph nodes Exam Const General: cooperative, no acute distress Orientation: alert, awake, oriented x3 HENMT Head: atraumatic, normocephalic Ears: hearing grossly normal bilaterally Resp Effort AND Inspection: normal respiratory effort, able to speak in complete sentences Auscultation: Bilateral: Clear to Auscultation Cardio Rate: regular rate Rhythm: regular rhythm Heart Sounds: S1 normal, S2 normal GI Palpation: soft, no hepatosplenomegaly Neuro General: alert, awake, oriented x3, CN's II-XI intact bilaterally Extrem General: no clubbing, cyanosis or edema Psych Appearance: grossly normal Mental Status: mental status grossly normal Affect: normal affect Office Meds Flucelvax Quad 0726-4511 (PF) Performing Provider: Sarah Mcgraw MD Administered by: Anne Ayala on 08/11/18 11:03 Dose Route Admin Location Lot Number Expiration Date NDC Balance Wheel Motion Inspector 60 mcg IM left deltoid [id number] 04/01/19 35977-907-81 [employer]. Assessment AND Plan 1. Essential hypertension I10 Plan Blood pressure is stable. Currently tolerating amlodipine at 2.5 mg daily. Also on potassium supplements due to an episode of hyperkalemia. BMP ordered. Continue current medications and lifestyle/dietary modifications Orders Orders: 2. Seasonal allergies J30.2 Plan Chronic. Currently follows up with ENT and has weekly allergy shots. She has had this for over a year. Does not believe this is helping much. I have advised her to bring this up with her ENT specialist. Follow-up at next visit. 3. Health care maintenance Z00.00 Plan Flu shot given. Mammogram scheduled for later on in a month. 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 Referred to general surgery for screening colonoscopy. This note was generated with [employer] dictation software. It may contain incorrect words, spelling, and punctuation that were not noted in checking the note before signing. Plan Detail Other Orders Orders: Referrals: Other Medications Discontinued: Flucelvax Quad 7520-8660 (PF) (flu vac qs 2018(4 yr60 mcg (0.5 mL) IM ONCE 1 mL 0RF NS Z23 up)CD(PF)) Discontinued Reason: Office Medicat ion has been Documented as given Coding Level of Care Code Off vis,est,level 3 Diagnoses Essential hypertension I10 Hypertension type: essential hypertension Seasonal allergies J30.2 Health care maintenance Z00.00 08/14/18 1629 <Electronically signed by Sarah Mcgraw MD> Date Sarah Rivera Signature: Date (if applicable) CC: BASIC METABOLIC Collected: 08/11/2018 Status: F Source: HOSSEIN PROFILE ([facility]) 11:38 AM [facility] REPOSITORY TYPE CODE TESTS RESULT OUT OF RANGE REFERENCE UNITS LAB L501.0100 74-106 mg/dL Normal GLU 84 Result Comment: Please note revised GLUCOSE reference range effective 2017. LAB L501.1000 7-18 mg/dL Normal BUN 13 LAB L501.1100 0.55-1.02 mg/dL Normal CREAT,SERUM 0.73 Result Comment: The validity of the calculated GFR AND GFRAA in patients over 70 years has not been determined. Clinical correlation is essential. LAB L501.1110 >60 mL/min Normal EST GFR 86 Result Comment: Non- GFR Calc LAB L501.1115 >60 mL/min Normal EST GFR - AA 104 Result Comment: GFR Calc LAB L501.1300 10-20 RATIO Normal BUN/CRE 17.9 LAB L501.2200 8.5-10.1 mg/dL CA Normal 8.8 LAB L501.5300 136-145 mmol/L NA Normal 140 LAB L501.5600 3.5-5.1 mmol/L K Normal 3.6 LAB L501.5900 98-107 mmol/L CL Normal 104 LAB L501.6100 21.0-32.0 mmol/L Normal CO2 27.0 LAB L501.6200 5-15 Normal GAP 9 Performed By: #### L500.2500 #### [facility] [address] [place], [address] INTERNAL MEDICINE Observed: 05/08/2018 Status: F Source: [place] OFFICE VISIT 4:33 PM [facility] REPOSITORY [facility] [address] [place] [address] [place] [address] OFFICE VISIT Date of Service: 05/05/18 MR#: [id number] Acct: [id number] Name: LEDY CERVANTES Rep #: [id number] : 1955 Provider: Sarah Mcgraw MD Age/Sex: 63/F Location: [facility] Status: Signed Intake Vital Signs05/05/18 Height 5 ft 7 in Intake Visit Reasons: 3 MO FU Chief Complaint: follow-up visit Is patient in pain?: No Allergies No Known Allergies Allergy (Unverified 03/03/18 08:58) Medications blood pressure test kit-large cuff See Dose Instructions .ROUTE .MEDSUPPLY #1 ea 09/09/17 [Rx Confirmed 05/05/18] calcium carbonate-vitamin D3 600 mg (1,500 mg)-400 unit capsule cap PO 09/09/17 [History Confirmed 05/05/18] levothyroxine 88 mcg tablet 88 mcg PO QDAY #90 tab 09/09/17 [Rx Confirmed 05/05/18] loratadine 10 mg tablet 10 mg PO QDAY 09/09/17 [History Confirmed 05/05/18] lutein 20 mg capsule 20 mg PO QDAY 09/09/17 [History Confirmed 05/05/18] multivitamin capsule 1 cap PO QDAY 09/09/17 [History Confirmed 05/05/18] rosuvastatin 10 mg tablet 10 mg PO QDAY #90 tab 09/09/17 [Rx Confirmed 05/05/18] hydrochlorothiazide 25 mg tablet 25 mg PO QDAY #90 tab 11/04/17 [Rx Confirmed 05/05/18] losartan 100 mg tablet 100 mg PO QDAY #90 tab 11/04/17 [Rx Confirmed 05/05/18] amlodipine 5 mg tablet 2.5 mg PO QDAY #90 tab 05/05/18 [Rx Confirmed 05/05/18] naproxen 500 mg tablet 500 mg PO BID PRN #60 tab 05/05/18 [Rx Confirmed 05/05/18] PFSH Medical History Seasonal allergies (Chronic) Prediabetes (Acute) Hypothyroid (Chronic) Hyperlipidemia (Chronic) Hypertension (Chronic) Arthritis (Acute) Thyroid nodule (Acute) Surgical History H/O tubal ligation (Acute) Hx of tonsillectomy (Acute) uterine ablasion (Acute) Family History Mother Hypertension Heart disease Myocardial infarction age 87 Thyroid disorder Hyperlipidemia Father Hyperlipidemia Hypertension Arthritis Aunt Breast cancer Social History Smoking Status: Never smoker alcohol intake: never substance use type: does not use what type of physical activity do you participate in: none HPI HPI Chief Complaint: follow-up visit Details: LEDY CERVANTES, is a 63 F who presents to the office today for follow-up of her chronic medical conditions. She has no acute concerns at this time. She was started on amlodipine during her last visit due to poorly controlled blood pressure. Her blood pressure is well controlled at this time however she states that she has had problems with the amlodipine. Currently on 5 mg, she reports swelling of the hands and fatigue which he attributes to amlodipine. She otherwise feels well and denies swelling of the lower extremities. ROS Const Constitutional: No weight change, body ache, chills, fatigue, sleep problems, fever(s), change in appetite, snoring, weakness, frequent falls, headache(s) or excessive sweating Eyes Eyes: No change in vision, eye pain, light sensitivity or blurry vision ENT ENT: No headache(s), abnormal hearing, ear pain, tinnitus, nasal congestion, sore throat or neck pain Resp Respiratory: No snoring, shortness of breath or wheezing Cardio Cardiology: No excessive sweating, chest pain at rest, chest pain with exertion, shortness of breath, dyspnea on exertion, palpitations, orthopnea or lightheadedness Gastro GI: No abdominal pain, change in bowel habits, constipation, diarrhea, vomiting, nausea/dyspepsia or cramping Genitourinary-Female: No burning urination, painful urination, urinary frequency, abnormal vaginal bleeding, pelvic pain or other Musc Musculoskeletal: No neck pain, abnormal walking, joint pain, limited range of motion or tingling Skin Skin: Positive for nail changes (left big toe has fungus); no redness, dry skin, itching, lesions, wounds or rash Neuro Neurology: No weakness, frequent falls, headache(s), abnormal hearing, abnormal walking, tingling, abnormal speech, dizziness or memory loss Psych Psychiatric: No change in appetite, No memory loss, No anxiety, No depression, No Thoughts of harming yourself/Others Endo Endocrine: No fatigue, excessive sweating, cold intolerance, increased thirst/drinking, heat intolerance, flushing or increased hunger Aller/Imm Allergy/Immunologic: Positive for seasonal allergy symptoms; no wheezing, itchy eyes or hives Dominick/Lymp Hematologic/Lymphatic: No easy bleeding, easy bruising or enlarged lymph nodes Exam Const General: cooperative, no acute distress Orientation: alert, awake, oriented x3 HENMT Head: atraumatic, normocephalic Ears: hearing grossly normal bilaterally Resp Effort AND Inspection: normal respiratory effort, able to speak in complete sentences Auscultation: Bilateral: Clear to Auscultation Cardio Rate: regular rate Rhythm: regular rhythm Heart Sounds: S1 normal, S2 normal GI Palpation: soft, no hepatosplenomegaly Neuro General: alert, awake, oriented x3, CN's II-XI intact bilaterally Extrem General: no clubbing, cyanosis or edema Psych Appearance: grossly normal Mental Status: mental status grossly normal Affect: normal affect Assessment AND Plan 1. Essential hypertension I10 Plan Well-controlled. However patient is not very tolerant of amlodipine. Reduce it 2.5 mg if symptoms still persist at this dose, will switch to low-dose clonidine. Continue lifestyle modifications. Advised to continue blood pressure log if she notes persistent elevated blood pressure at current dose she is advised to call. Follow-up in 3 months Orders Orders: 2. Hyperlipidemia E78.5 Plan Stable. Continue current medication and lifestyle modifications. Repeat in 3 months 3. Toenail fungus B35.1 Plan She has tried oral medications without any significant improvement. Surgery had been recommended in the past however patient declined. 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 Will follow. This note was generated with [employer] dictation software. It may contain incorrect words, spelling, and punctuation that were not noted in checking the note before signing. Plan Detail Other Medications New: Changed: Coding Level of Care Code Off vis,est,level 3 Diagnoses Essential hypertension I10 Hypertension type: essential hypertension Hyperlipidemia E78.5 Toenail fungus B35.1 05/08/18 1633 <Electronically signed by Sarah Mcgraw MD> Date Sarah Mcgraw MD Cosigner Signature: Date (if applicable) CC: BASIC METABOLIC Collected: 05/05/2018 Status: F Source: HOSSEIN PROFILE ([facility]) 10:19 AM [facility] REPOSITORY TYPE CODE TESTS RESULT OUT OF RANGE REFERENCE UNITS LAB L501.0100 74-106 mg/dL Normal GLU 85 Result Comment: Please note revised GLUCOSE reference range effective 2017. LAB L501.1000 7-18 mg/dL Normal BUN 15 LAB L501.1100 0.55-1.02 mg/dL Normal CREAT,SERUM 0.87 Result Comment: The validity of the calculated GFR AND GFRAA in patients over 70 years has not been determined. Clinical correlation is essential. LAB L501.1110 >60 mL/min Normal EST GFR 70 Result Comment: Non- GFR Calc LAB L501.1115 >60 mL/min Normal EST GFR - AA 85 Result Comment: GFR Calc LAB L501.1300 10-20 RATIO Normal BUN/CRE 17.2 LAB L501.2200 8.5-10.1 mg/dL CA Normal 9.0 LAB L501.5300 136-145 mmol/L NA Normal 144 LAB L501.5600 3.5-5.1 mmol/L Low K 3.4 LAB L501.5900 98-107 mmol/L CL Normal 106 LAB L501.6100 21.0-32.0 mmol/L Normal CO2 31.0 LAB L501.6200 5-15 Normal GAP 7 Performed By: #### L500.2500 #### [facility] [address] [place], [address] OFFICE VISIT REPORT Observed: 03/14/2018 Status: F Source: HOSSEIN 1:27 PM [facility] REPOSITORY [facility] [address] [place] [address] OFFICE VISIT Date of Service: 03/03/18 MR#: [id number] Acct: [id number] Patient: LEDY CERVANTES Rep #: [id number] : 1955 Provider: Sarah Mcgraw MD Age/Sex: 63/F Location: [facility] Status: Signed Intake Vital Signs03/03/18 Height 5 ft 7 in 03/03/18 Weight: 175 lb 03/03/18 Body Mass Index (BMI) 27.3 Intake Visit Reasons: BP check Chief Complaint: BP Check Allergies No Known Allergies Allergy (Unverified 03/03/18 08:58) Medications blood pressure test kit-large cuff See Dose Instructions .ROUTE .MEDSUPPLY #1 ea 09/09/17 [Rx Confirmed 03/03/18] calcium carbonate-vitamin D3 600 mg (1,500 mg)-400 unit capsule cap PO 09/09/17 [History Confirmed 03/03/18] levothyroxine 88 mcg tablet 88 mcg PO QDAY #90 tab 09/09/17 [Rx Confirmed 03/03/18] loratadine 10 mg tablet 10 mg PO QDAY 09/09/17 [History Confirmed 03/03/18] lutein 20 mg capsule 20 mg PO QDAY 09/09/17 [History Confirmed 03/03/18] multivitamin capsule 1 cap PO QDAY 09/09/17 [History Confirmed 03/03/18] rosuvastatin 10 mg tablet 10 mg PO QDAY #90 tab 09/09/17 [Rx Confirmed 03/03/18] hydrochlorothiazide 25 mg tablet 25 mg PO QDAY #90 tab 11/04/17 [Rx Confirmed 03/03/18] losartan 100 mg tablet 100 mg PO QDAY #90 tab 11/04/17 [Rx Confirmed 03/03/18] amlodipine 5 mg tablet 5 mg PO QDAY #30 tab 02/21/18 [Rx Confirmed 03/03/18] Nursing Note Pt brought BP log. She also states that there are times when she gets up from sitting she gets dizziness. Talked with Dr Mcgraw AND if this continues or doesn't lessen let us know. 03/14/18 1327 <Electronically signed by Sarah Mcgraw MD> Date Sarah Mcgraw MD Cosigner Signature: Date (if applicable) CC: OFFICE VISIT REPORT Observed: 02/21/2018 Status: F Source: HOSSEIN 12:[address] [place] [address] OFFICE VISIT Date of Service: 02/21/18 MR#: [id number] Acct: [id number] Patient: LEDY CERVANTES Rep #: [id number] : 1955 Provider: Macho Muñoz NP Age/Sex: 63/F Location: [facility] Status: Signed Intake Vital Signs02/21/18 Height 5 ft 7 in Intake Visit Reasons: BP CK Chief Complaint: follow-up visit BP Allergies No Known Allergies Allergy (Unverified 02/07/18 09:06) Medications blood pressure test kit-large cuff See Dose Instructions .ROUTE .MEDSUPPLY #1 ea 09/09/17 [Rx Confirmed 09/09/17] calcium carbonate-vitamin D3 600 mg (1,500 mg)-400 unit capsule cap PO 09/09/17 [History Confirmed 02/07/18] levothyroxine 88 mcg tablet 88 mcg PO QDAY #90 tab 09/09/17 [Rx Confirmed 02/07/18] loratadine 10 mg tablet 10 mg PO QDAY 09/09/17 [History Confirmed 02/07/18] lutein 20 mg capsule 20 mg PO QDAY 09/09/17 [History Confirmed 02/07/18] multivitamin capsule 1 cap PO QDAY 09/09/17 [History Confirmed 02/07/18] rosuvastatin 10 mg tablet 10 mg PO QDAY #90 tab 09/09/17 [Rx Confirmed 02/07/18] hydrochlorothiazide 25 mg tablet 25 mg PO QDAY #90 tab 11/04/17 [Rx Confirmed 02/07/18] losartan 100 mg tablet 100 mg PO QDAY #90 tab 11/04/17 [Rx Confirmed 02/07/18] mupirocin 2 % topical ointment 1 applic TOPICAL TID 10 Days #22 g 02/07/18 [Rx Confirmed 02/07/18] amlodipine 5 mg tablet 5 mg PO QDAY #30 tab 02/21/18 [Rx Confirmed 02/21/18] Nurse's Note: Pt. returns today for a recheck of her BP. It read 152/80 left arm with the manual cuff. Pt did not remember to bring her home cuff for a direct compare reading, but she did bring a log of her readings over the last two weeks. I advised pt that I would report back to Dr. Mcgraw and follow-up with her as recommended. Pt stated understanding. Assessment AND Plan Plan Added Norvasc 5 mg daily, patient will follow-up in 2 weeks for nurse visit with her blood pressure log as well Medications New: 02/21/18 1258 <Electronically signed by Macho SETH> Date Macho SETH Cosigner Signature: Date (if applicable) CC: HEMOGLOBIN A1C Collected: 02/10/2018 Status: F Source: [place] 8:13 AM [facility] REPOSITORY TYPE CODE TESTS RESULT OUT OF RANGE REFERENCE UNITS LAB L501.9985 4.2-6.3 % Normal HGB A1C 6.0 Performed By: #### L501.9985 #### [facility] [address] [place], [place], [address] LIPID PROFILE Collected: 02/10/2018 Status: F Source: [place] 8:13 AM [facility] REPOSITORY TYPE CODE TESTS RESULT OUT OF RANGE REFERENCE UNITS LAB L501.4900 200 mg/dL Normal CHOL 147 Result Comment: <200 mg/dL Desirable 200-240 mg/dL Borderline >240 mg/dL High Risk LAB L501.5000 mg/dL Normal TRIG 128 Result Comment: The drugs N-Acetylcysteine and Metamizole may falsely depress this assay. Serum Triglycerides Reference Interval Normal <150 mg/dL Borderline high 150 - 199 mg/dL High 200 - 499 mg/dL Very High > or = 500 mg/dL LAB L501.6400 mg/dL Normal HDL 50 Result Comment: The drugs N-Acetylcysteine and Metamizole may falsely depress this assay. Reference Range HDL <40 mg/dL Low HDL Cholesterol HDL >or= 60 mg/dL High HDL Cholesterol LAB L501.6500 0-130 mg/dL Normal LDL 71 LAB L501.6600 5-40 mg/dL Normal VLDL 26 Performed By: #### L500.4100, L501.9520, L506.0400 #### [facility] [address] [place], [address] THYROID STIM HORMONE Collected: 02/10/2018 Status: F Source: [facility] ([facility]) 8:13 AM [facility] REPOSITORY TYPE CODE TESTS RESULT OUT OF RANGE REFERENCE UNITS LAB L501.9520 0.358-3.74 uIU/mL Normal TSH 1.56 Performed By: #### L500.4100, L501.9520, L506.0400 #### [facility] [address] [place], [address] T4 FREE DIRECT Collected: 02/10/2018 Status: F Source: [facility]IN 8:13 AM [facility] REPOSITORY TYPE CODE TESTS RESULT OUT OF RANGE REFERENCE UNITS LAB L506.0400 0.76-1.46 ng/dL Normal T4 FREE 1.27 DIRECT Performed By: #### L500.4100, L501.9520, L506.0400 #### [facility] [address] [place], [address] INTERNAL MEDICINE Observed: 02/07/2018 Status: F Source: HOSSEIN OFFICE VISIT 3:17 PM [facility] REPOSITORY [facility] [address] [place] [address] [place] [address] OFFICE VISIT Date of Service: 02/07/18 MR#: [id number] Acct: [id number] Name: LEDY CERVANTES Rep #: [id number] : 1955 Provider: Macho Muñoz NP Age/Sex: 62/F Location: [facility] Status: Signed Intake Vital Signs02/07/18 Body Mass Index (BMI) 27.2 02/07/18 Blood Pressure 144/84 Intake Visit Reasons: 3 MO F/U Chief Complaint: follow-up visit BP Is patient in pain?: No Allergies No Known Allergies Allergy (Unverified 02/07/18 09:06) Medications blood pressure test kit-large cuff See Dose Instructions .ROUTE .MEDSUPPLY #1 ea 09/09/17 [Rx Confirmed 09/09/17] calcium carbonate-vitamin D3 600 mg (1,500 mg)-400 unit capsule cap PO 09/09/17 [History Confirmed 02/07/18] levothyroxine 88 mcg tablet 88 mcg PO QDAY #90 tab 09/09/17 [Rx Confirmed 02/07/18] loratadine 10 mg tablet 10 mg PO QDAY 09/09/17 [History Confirmed 02/07/18] lutein 20 mg capsule 20 mg PO QDAY 09/09/17 [History Confirmed 02/07/18] multivitamin capsule 1 cap PO QDAY 09/09/17 [History Confirmed 02/07/18] rosuvastatin 10 mg tablet 10 mg PO QDAY #90 tab 09/09/17 [Rx Confirmed 02/07/18] hydrochlorothiazide 25 mg tablet 25 mg PO QDAY #90 tab 11/04/17 [Rx Confirmed 02/07/18] losartan 100 mg tablet 100 mg PO QDAY #90 tab 11/04/17 [Rx Confirmed 02/07/18] mupirocin 2 % topical ointment 1 applic TOPICAL TID 10 Days #22 g 02/07/18 [Rx Confirmed 02/07/18] PFSH Medical History Seasonal allergies (Chronic) Prediabetes (Acute) Hypothyroid (Chronic) Hyperlipidemia (Chronic) Hypertension (Chronic) Arthritis (Acute) Thyroid nodule (Acute) Surgical History H/O tubal ligation (Acute) Hx of tonsillectomy (Acute) uterine ablasion (Acute) Family History Mother Hypertension Heart disease Myocardial infarction age 87 Thyroid disorder Hyperlipidemia Father Hyperlipidemia Hypertension Arthritis Aunt Breast cancer Social History Smoking Status: Never smoker alcohol intake: never substance use type: does not use what type of physical activity do you participate in: none HPI HPI Chief Complaint: follow-up visit BP Details: LEDY CERVANTES, is a 62 F who presents to the office today for a follow-up of her high blood pressure. She has a past medical history as listed above. The patient states that her blood pressures have been well controlled at home when she checks them and average 120s-130s systolic over 80s diastolic. However her blood pressure is elevated today in the office at 159/87. She denies any symptoms of hypertension. She does state that she has an acute complaint as well of yellow crusting in the corners of her mouth. She states this is been going on for the past week or so and has been progressively worsening. She has tried ryko-xum-ptvnche Abreva thinking that her cold sores without much relief. She denies any other aggravating or alleviating signs and symptoms. She denies any exposure to sick contacts. The patient otherwise denies any fever, chills, nausea, vomiting, shortness of breath, chest pain or pressure, palpitations, orthopnea, lower extremity edema, syncope or presyncopal episodes. ROS Const Constitutional: No chills, fatigue, fever(s), frequent falls, malaise, weakness, sleep problems or change in appetite Eyes Eyes: No blurry vision, change in vision, double vision, discharge or visual disturbances ENT ENT: No abnormal hearing, ear pain, ear pressure, tinnitus or dizziness/vertigo Resp Respiratory: Positive for cough; no shortness of breath or wheezing Cardio Cardiology: No chest pain at rest, chest pain with exertion, shortness of breath, dyspnea on exertion, generalized swelling, irregular heart rhythm, lightheadedness, orthopnea, fast heart rate or palpitations Gastro GI: No abdominal pain, change in bowel habits, constipation, diarrhea, nausea/dyspepsia or vomiting Genitourinary-Female: No difficulty urinating, burning urination, painful urination, urinary incontinence, urinary frequency, urinary urgency, urinary hesitancy, urinary retention, Frequent nighttime urination/ nocturia, sexual problems, genital lesions, abnormal vaginal bleeding, pelvic pain, vaginal dryness, vaginal odor or Vaginal Itching Musc Musculoskeletal: Positive for joint pain (Arthritis pain all over); no back pain, joint swelling, limited range of motion, muscle weakness, numbness or tingling Skin Skin: No change in skin color, itching, rash or wounds Breast Breast: No breast lump or breast pain Neuro Neurology: No frequent falls, weakness, abnormal hearing, numbness, tingling, unsteady gait/balance, dizziness, loss of vision, memory loss or visual disturbances Psych Psychiatric: No memory loss, No anxiety, No change in appetite, No depression, No Thoughts of harming yourself/Others Endo Endocrine: No fatigue, heat intolerance, increased thirst/drinking, increased hunger or increased urination Aller/Imm Allergy/Immunologic: No wheezing, itchy eyes or seasonal allergy symptoms Dominick/Lymp Hematologic/Lymphatic: No easy bleeding, easy bruising or enlarged lymph nodes Exam Const General: cooperative, comfortable, no acute distress Nutritional Appearance: average body habitus, well nourished Orientation: alert, oriented x3 Limitations: mental status not altered Resp Effort AND Inspection: normal respiratory effort, able to speak in complete sentences, normal respiratory pattern, symmetric chest movement, no audible wheezes, no cough Auscultation: Bilateral: Clear to Auscultation Cardio Palpation: normal PMI Rate: regular rate Heart Sounds: S1 normal, S2 normal, normal S1 and S2, no click, no gallops, no murmurs, no rubs Musc Musculoskeletal: No muscle weakness Skin Other: Yellow crusting noted in bilateral corners of external mouth extending past the lips, consistent with that of impetigo Neuro General: alert, awake, oriented x3, CN's II-XI intact bilaterally Speech: speech normal Gait: normal gait Motor: muscle tone normal throughout Extrem General: normal to inspection, normal gait, no edema, no pedal edema Psych Appearance: grossly normal Mental Status: mental status grossly normal Affect: normal affect Attitude: cooperative Thought Process: normal Assessment AND Plan 1. Essential hypertension I10 Plan The patient's blood pressure is elevated today in the office, however she states that it is well controlled at home. Possible white coat syndrome. Prior to any adjustment of her medications instructed her to check her blood pressure daily at various times during the day over the next 2 weeks and follow-up in 2 weeks for a nurse visit blood pressure check. If home blood pressure log and blood pressure remains elevated at that time, will consider adjusting her antihypertensive regimen. Instructed on low salt intake as well. Patient verbalized understanding. Patient will follow-up in 3 months for her routine appointment. 2. Impetigo L01.00 Plan Based on clinical exam, the patient does have impetigo. Bactroban 3 times daily was ordered for 10 days patient instructed to notify our office if this does not clear up in that timeframe. Patient verbalized understanding. Medications New: Plan Detail Additional Comments Instructed patient to get her blood work done that was ordered prior Follow Up 2 weeks nurse visit 3 months routine Coding Level of Care Code Off vis,est,level 3 Diagnoses Essential hypertension I10 Hypertension type: essential hypertension Impetigo L01.00 02/07/18 1517 <Electronically signed by Macho SETH> Date Macho SETH Cosigner Signature: Date (if applicable) CC: INTERNAL MEDICINE Observed: 11/04/2017 Status: F Source: [facility] OFFICE VISIT 1:48 PM [facility] [address] [address] OFFICE VISIT Date of Service: 11/04/17 MR#: [id number] Acct: [id number] Name: LEDY CERVANTES Rep #: [id number] : 1955 Provider: Sarah Mcgraw MD Age/Sex: 62/F Location: [facility] Status: Signed Intake Vital Signs11/04/17 Height 5 ft 7 in 11/04/17 Weight: 174 lb 11/04/17 Body Mass Index (BMI) 27.2 11/04/17 Blood Pressure 144/84 11/04/17 Blood Pressure Location Lt brachial Intake Visit Reasons: 3 M FU Allergies No Known Allergies Allergy (Unverified 09/09/17 13:08) Medications blood pressure test kit-large cuff See Dose Instructions .ROUTE .MEDSUPPLY #1 ea 09/09/17 [Rx Confirmed 09/09/17] calcium carbonate-vitamin D3 600 mg (1,500 mg)-400 unit capsule cap PO 09/09/17 [History Confirmed 09/09/17] fluticasone 50 mcg/actuation nasal spray,suspension 2 spray INTRANASAL ONCE 09/09/17 [History Confirmed 09/09/17] levothyroxine 88 mcg tablet 88 mcg PO QDAY #90 tab 09/09/17 [Rx Confirmed 09/09/17] loratadine 10 mg tablet 10 mg PO QDAY 09/09/17 [History Confirmed 09/09/17] lutein 20 mg capsule 20 mg PO QDAY 09/09/17 [History Confirmed 09/09/17] multivitamin capsule 1 cap PO QDAY 09/09/17 [History Confirmed 09/09/17] rosuvastatin 10 mg tablet 10 mg PO QDAY #90 tab 09/09/17 [Rx Confirmed 09/09/17] hydrochlorothiazide 25 mg tablet 25 mg PO QDAY #90 tab 11/04/17 [Rx Confirmed 11/04/17] losartan 100 mg tablet 100 mg PO QDAY #90 tab 11/04/17 [Rx Confirmed 11/04/17] PFSH Medical History Seasonal allergies (Chronic) Prediabetes (Acute) Hypothyroid (Chronic) Hyperlipidemia (Chronic) Hypertension (Chronic) Arthritis (Acute) Thyroid nodule (Acute) Surgical History H/O tubal ligation (Acute) Hx of tonsillectomy (Acute) uterine ablasion (Acute) Family History Mother Hypertension Heart disease Myocardial infarction age 87 Thyroid disorder Hyperlipidemia Father Hyperlipidemia Hypertension Arthritis Aunt Breast cancer Social History Smoking Status: Never smoker alcohol intake: never substance use type: does not use what type of physical activity do you participate in: none HPI 3 M FU: Chief Complaint: follow-up visit Details: LEDY CERVANTES, is a 62yo F who presents to the office today for follow up of chronic medical conditions. She has no acute complaints at this time. Blood pressure done in office today is elevated at 144/84 mmHg. Patient also brings along a blood pressure log which shows poorly controlled blood pressures at home with blood pressures typically ranging in the 140s-150s systolic. She is currently on losartan 100 mg daily and hydrochlorothiazide 12.5 mg daily. She reports compliance with her medication. Last A1c was 6.1. She is currently not on any medication. She is also on 88 mcg of Synthroid due to a history of hypothyroidism. She does not report any symptoms at this time suggestive of under or over correction. ROS Const Constitutional: No weight change, body ache, chills, fatigue, sleep problems, fever(s), change in appetite, snoring, weakness, frequent falls, headache(s) or excessive sweating Eyes Eyes: No change in vision, eye pain, light sensitivity or blurry vision ENT ENT: No headache(s), abnormal hearing, ear pain, tinnitus, sore throat or neck pain Resp Respiratory: No snoring, shortness of breath or wheezing Cardio Cardiology: No excessive sweating, chest pain at rest, chest pain with exertion, shortness of breath, dyspnea on exertion, palpitations, orthopnea or lightheadedness Gastro GI: No abdominal pain, change in bowel habits, constipation, diarrhea, vomiting, nausea/dyspepsia or cramping Musc Musculoskeletal: No neck pain, abnormal walking, joint pain, back pain, limited range of motion, numbness or tingling Skin Skin: No redness, dry skin, itching, lesions, wounds or rash Neuro Neurology: No weakness, frequent falls, headache(s), abnormal hearing, abnormal walking, numbness, tingling, abnormal speech, dizziness or memory loss Psych Psychiatric: No change in appetite, No memory loss, No anxiety, No depression, No Thoughts of harming yourself/Others Endo Endocrine: No fatigue, excessive sweating, cold intolerance, increased thirst/drinking, heat intolerance, flushing or increased hunger Aller/Imm Allergy/Immunologic: No wheezing, itchy eyes, hives or seasonal allergy symptoms Dominick/Lymp Hematologic/Lymphatic: No easy bleeding, easy bruising or enlarged lymph nodes Exam Const General: cooperative, no acute distress, well developed Orientation: alert, awake, oriented x3 HENMS Head: normal to inspection, normocephalic Ears: hearing grossly normal bilaterally Resp Effort AND Inspection: normal respiratory effort, able to speak in complete sentences Auscultation: Bilateral: Clear to Auscultation Cardio Rate: regular rate Rhythm: regular rhythm Heart Sounds: S1 normal, S2 normal GI Palpation: soft, no hepatosplenomegaly Neuro General: alert, awake, oriented x3, moves all extremities, CN's II-XI intact bilaterally Extrem General: no clubbing, cyanosis or edema Psych Appearance: grossly normal Mood: congruent mood Affect: normal affect Assessment AND Plan 1. Essential hypertension I10 Plan Not optimally controlled. Will increase hydrochlorothiazide to 25 mg daily. Continue losartan 100 mg daily. Lifestyle modifications discussed. Advised to continue blood pressure log. Advised to call the office if she still notes persistent blood pressure over 140. Low-dose aspirin 81 mg daily. Follow-up in 3 months. 2. Prediabetes R73.03 Plan Last A1c of 6.1. Repeat A1c ordered. Follow-up with results. Orders Orders: 3. Hypothyroidism E03.9 Plan Currently on Synthroid 88 mcg daily. She reports compliance with this. Will get a thyroid function test. Follow-up with results Orders Orders: 4. Hyperlipidemia E78.5 Plan Last lipid profile was done in the [facility]. Patient unsure of her levels. Will get a lipid profile. Continue current medication. This note was generated with ADTZation software. It may contain incorrect words, spelling, and punctuation that were not noted in checking the note before signing. Orders Orders: Plan Detail Other Medications New: Discontinued: losartan-hydrochlorothiazide 100-12.5 mg Discontinued Reason: Order Cha1 tab PO QDAY nged Follow Up 3 Months Coding Level of Care Code Off vis,est,level 3 Diagnoses Essential hypertension I10 Hypertension type: essential hypertension Prediabetes R73.03 Hypothyroidism E03.9 Hyperlipidemia E78.5 11/04/17 1348 <Electronically signed by Sarah Mcgraw MD> Date Sarah Mcgraw MD Cosigner Signature: Date (if applicable) CC: BASIC METABOLIC Collected: 10/28/2017 Status: F Source: [facility]SEIN PROFILE ([facility]) 9:52 AM [facility] REPOSITORY TYPE CODE TESTS RESULT OUT OF RANGE REFERENCE UNITS LAB L501.0100 70-110 mg/dL Normal GLU 99 LAB L501.1000 7-18 mg/dL Normal BUN 16 LAB L501.1100 0.55-1.02 mg/dL Normal 0.78 CREAT,SERUM Result Comment: The validity of the calculated GFR AND GFRAA in patients over 70 years has not been determined. Clinical correlation is essential. LAB L501.1110 >60 mL/min Normal EST GFR 80 Result Comment: Non- GFR Calc LAB L501.1115 >60 mL/min Normal EST GFR - AA 96 Result Comment: GFR Calc LAB L501.1300 10-20 RATIO High BUN/CRE 20.5 LAB L501.2200 8.5-10.1 mg/dL CA Normal 8.7 LAB L501.5300 136-145 mmol/L NA Normal 142 LAB L501.5600 3.5-5.1 mmol/L K Normal 3.6 LAB L501.5900 98-107 mmol/L CL Normal 106 LAB L501.6100 21.0-32.0 mmol/L Normal CO2 26.0 LAB L501.6200 5-15 Normal GAP 10 Performed By: #### L500.2500 #### [facility] [address] [place], [address] ALLERGIES ALLERGIES DATE TYPE / CODE NAME / CODE REACTION SEVERITY SOURCE 09/05/2018 Drug lisinopril/[id number] cough Unknown [place] Allergy/416 58(RXNORM) [facility] 346469([facility] ED CT) Repository 08/11/2018 Drug No Known Unknown [place] Allergy/416 Allergies/[id number] [facility] 081449[facility] 07/31/2015 DRUG ATORVASTATIN OTHER: SEE C [facility] INGREDI/419 [facility] 570406([facility] ED CT) ENCOUNTERS ENCOUNTERS ADMIT/DISCHARGE ACCOUNT ADMITTING ENCOUNTER LOCATION SOURCE NUMBER CLASS 09/13/2018 [id number] Ambulatory BMSBuilding:Kierra Catalan MS.CF.[facility] Repository 09/13/2018/09/13/20 [id number] Ambulatory [address] ing:ENRoom: Repository AC14 08/29/2018/08/30/20 [id number] Ambulatory [address] Repository 08/29/2018/08/29/20 [id number] Ambulatory [address] Repository 08/11/2018/08/11/20 [id number] Ambulatory BMSBuilding:Kierra Catalan 18 MS.[facility] Repository 08/11/2018 [id number] [facility] ing:MTLAB Repository 08/11/2018/08/11/20 [id number] Ambulatory BMSBuilding:Kierra Catalan 18 MS.[facility] Repository 05/05/2018 [id number] Ambulatory [facility] ing:MTLAB Repository 05/05/2018/05/05/20 [id number] Ambulatory BMSBuilding:B [place] 18 MS.[facility] Repository 03/03/2018/03/03/20 [id number] Ambulatory BMSBuilding:B [place] 18 MS.[facility] Repository 02/10/2018 [id number] Ambulatory [facility] ing:MTLAB Repository 02/07/2018/02/08/20 [id number] Ambulatory BMSBuilding:B [place] 18 MS.[facility] Repository 11/04/2017/11/04/19 [id number] Ambulatory BMSBuilding:B [place] 18 MS.[facility] Repository 10/28/2017 [id number] Ambulatory [facility] ing:MTLAB Repository PAYERS PAYERS ENCOUNTER GUARANTOR PAYER SUBSCRIBER SOURCE 09/13/2018 LEDY Spicer Primary RENNY D [place] [id number] CR Insurance:ANTHEMPolic BROOMEDOB: Community [address] [place] [address] y Number: [id number], [place] [address]Ttu: [id number] Repository Date:5021-58-27[address] () [address], [place] [address]OV: 09/13/2018 Secondary NOT GIVENUNK [place] Insurance:SELF PAY [facility] Number: Effective Repository Date:2018-09-13 09/13/2018 LEDY Spicer Primary RENNY D [place] [id number] CR Insurance:ANTHEMPolic BROOMEDOB: Community [address] [place] [address] y Number: [id number] Fork, [place] [address]Ggm: [id number] Repository Date:3309-58-86[address] ) [address], [place] [address]HZ: 09/13/2018 Secondary NOT GIVENUNK [place] Insurance:SELF PAY [facility] Number: Effective Repository Date:2018-08-11 08/11/2018 LEDY Spicer Primary [place] [id number] CR Insurance:ANTHEMPolic BroomeDOB: Community [address] [place] [address] y Number: [id number] [facility] , [place] [address]Ugq: [id number] Repository Date:5932-69-58IQ [address] () [id number] [place]IG[place]OTHAM [address]EO: 08/11/2018 Secondary NOT GIVENUNK [place] Insurance:SELF PAY [facility] Number: Effective Repository Date:2018-08-11 08/11/2018 LEDY M Primary [place] [id number] CR Insurance:ANTHEMPolic BroomeDOB: Community [address] [place] [address] y Number: [id number] [facility] , [place] [address]Uwl: [id number] Repository Date:9442-94-34FE [address] () [id number] HIGGINBOTHAM [address]DO: 08/11/2018 Secondary NOT GIVENUNK [place] Insurance:SELF PAY [facility] Number: Effective Repository Date:2018-08-11 08/11/2018 LEDY M Primary [place] [id number] CR Insurance:ANTHEMPolic BroomeDOB: Community [address] [place] [address] y Number: [id number] [facility] , [place] [address]Buw: [id number] Repository Date:3908-18-51HG [address] () [address]LJVHLTY, [place] [address]EL: 08/11/2018 Secondary NOT GIVENUNK [place] Insurance:SELF PAY [facility] Number: Effective Repository Date:2018-08-01 05/05/2018 LEDY Spicer Primary [place] [id number] CR Insurance:ANTHEMPolic BroomeDOB: Community [address] [place] [address] y Number: [id number] [facility] , [place] [address]Ggr: [id number] Repository Date:0411-78-09SV [address] () [id number], [place] [address]AZ: 05/05/2018 Secondary NOT GIVENUNK [place] Insurance:SELF PAY [facility] Number: Effective Repository Date:2018-05-05 05/05/2018 LEDY M Primary [place] [id number] CR Insurance:ANTHEMPolic BroomeDOB: [place] y Number: [id number] [facility] , [place] [address]Vqp: [id number] Repository Date:6665-69-94EM [address] () [id number] HIGGINBOTHAM [address]SU: 05/05/2018 Secondary NOT GIVENUNK [place] Insurance:SELF PAY [facility] Number: Effective Repository Date:2018-05-04 03/03/2018 LEDY Spicer Primary Renny D [place] [id number] CR Insurance:ANTHEMPolic BroomeDOB: Community [address] [place] [address] y Number: [id number] [facility] , [place] [address]Lhh: [id number] Repository [phone] Date:1176-05-28[address] () [id number], [place] [address]QP: 03/03/2018 Secondary NOT GIVENUNK [place] Insurance:SELF PAY [facility] Number: Effective Repository Date:2018-03-03 02/10/2018 LEDY Spicer Primary [place] [id number] CR Insurance:ANTHEMPolic BroomeDOB: Community [address] [place] [address] y Number: [id number] [facility] , [place] [address]Itu: [id number] Repository [phone] Date:4173-45-39[address] () [address]YLZEQTT, [place] [address]LP: 02/10/2018 Secondary NOT GIVENUNK [place] Insurance:SELF PAY [facility] Number: Effective Repository Date:2018-02-10 02/07/2018 ELDY Spicer Primary Renny D [place] [id number] CR Insurance:ANTHEMPolic BroomeDOB: Community [address] [place] [address] y Number: [id number] [facility] , [place] [address]Xfa: [id number] Repository Date:4450-32-13WQ [address] () 797935SWMYTVY, [place] [address]MG: 02/07/2018 Secondary NOT GIVENUNK [place] Insurance:SELF PAY [facility] Number: Effective Repository Date:2018-02-07 11/04/2017 LEDY Spicer Primary Renny Patel Hossein [id number] CR Insurance:ANTHEMPolic BroomeDOB: Community [address] [place] [address] y Number: [id number] , [place] [address]Kkz: [id number] Repository Date:[id number] [address] () [id number], [place] [address]SC: 11/04/2017 Secondary NOT GIVENUNK [place] Insurance:SELF PAY [facility] Number: Effective Repository Date:2017-09-22 10/28/2017 LEDY Spicer Primary Renny Patel Hossein [id number] CR Insurance:ANTHEMPolic BroomeDOB: Community [address] [place] [address] y Number: [id number] [facility] , [place] [address]Dse: [id number] Repository Date:[id number] [address] () [id number], [place] [address]RO: 10/28/2017 Secondary NOT GIVENUNK Hossein Insurance:SELF PAY [facility] Number: Effective Repository Date:2017-10-28
== END 2018-09-13 10:37 | disposition home or self-care (01) ==
LOC: EN 08:04 → AC 08:05
PROVIDERS: Family Provider Internal Medicine; PCP Internal Medicine; Referring Provider Surgery; Visit Provider Surgery
PROC: 0DJD8ZZ Inspection of Lower Intestinal Tract, Via Natural or Artificial Opening Endoscopic (ICD-10-PCS; CPT 45378; principal; 2018-09-13 08:55)
DX: Z12.11 Encounter for screening for malignant neoplasm of colon (principal); K62.1 Rectal polyp; K64.0 First degree hemorrhoids; E78.00 Pure hypercholesterolemia, unspecified; I10 Essential (primary) hypertension; R05 Cough
CPT/HCPCS: 45380; 88305; J7120

== ENCOUNTER → 2018-12-26 13:00 | Outpatient (CLI) | payer BC, SELFPAY ==
[2018-12-26 13:47] VITALS: BMI 27.3
[2018-12-27 09:02] LABS: Bacteria 0 SEEN /hpf (None Seen); Mucous, Urine 0 SEEN /hpf (<or=2+); Red Blood Cells-Urine 0 SEEN /hpf (0-5); Squamous Epithelial Cells - UA 0 SEEN /hpf (5-10); White Blood Cells 0 SEEN /hpf (0-5)
[2018-12-27 13:02] LABS: Color, Urine Yellow (Yellow); Glucose, Dipstick Normal (Normal); Ketone-Dipstick Negative (Negative); Leukocyte Esterase-Dipstick Negative /ul (Negative); Nitrite-Dipstick Negative (Negative); Occult Blood-Urine Negative /ul (Negative); Protein-Dipstick Negative (Negative); Urine Bilirubin Dipstick Negative (Negative); Urine Clarity Clear (Clear); Urine Urobilinogen Normal (Normal)
== END ==
PROVIDERS: Family Provider Internal Medicine; PCP Internal Medicine; Visit Provider Internal Medicine
DX: R10.2 Pelvic and perineal pain (principal)
CPT/HCPCS: 81001; 87086; 87088

== ENCOUNTER → 2019-02-12 09:54 | Outpatient (CLI) | payer BC, SELFPAY ==
[2019-02-09 10:30] VITALS: BMI 27.3
[2019-02-12 12:31] LABS: Absolute Lymphocyte Count 1.86 X10^3/ul (0.83-4.51); Absolute Neutrophil Count 2.6 X10^3/uL (2.0-7.7); Basophil# 0.03 X10^3/uL; Basophil% 0.6 % (0-1); Eosinophil# 0.21 X10^3/uL; Eosinophils% 3.9 % (0-5); Hemoglobin 14.8 g/dl (12.0-15.0); Lymphocyte # 1.86 X10^3/ul (4.0); Mean Corp Hgb Conc 32.9 g/gl (32-36); Mean Corpuscular Hgb 30.5 pg (27.0-32.0); Mean Corpuscular Volume 92.6 fL (81-99); Mean Platelet Vol. 11.7 fl (6.2-12.0); Monocyte% 11.3 % (0-10); Neutrophil # 2.62 X10^3/uL (2.7-7.7); Neutrophil % 49.2 % (47-70); Platelet Count 191 K/mm3 (150-450); RBC Distribution Width CV 13.8 % (11.6-14.6); RBC Distribution Width SD 46.4 fl (35.1-43.9); Red Blood Count 4.86 M/mm3 (4.2-5.4); White Blood Count 5.3 K/mm3 (4.4-11.0)
[2019-02-12 12:34] LABS: POSITIVE COUNT NO; POSITIVE DIFFERENTIAL NO; POSITIVE MORPHOLOGY NO
[2019-02-12 12:44] LABS: Hemoglobin A1c 6.1 % (4.2-6.3)
[2019-02-12 12:47] LABS: ALB/GLOB Ratio 1.2 RATIO (0.9-2.4); AST(SGOT) 16 U/L (15-37); Alanine Aminotransfer ALT/SGPT 30 U/L (13-56); Albumin, Serum 3.8 g/dL (3.2-5.0); Alkaline Phosphatase 76 U/L (45-117); Anion Gap 6 (5-15); BUN 13 mg/dL (7-18); BUN/Creat Ratio 15.6 RATIO (10-20); Calcium,Total 8.4 mg/dL (8.5-10.1); Chloride 105 mmol/L (98-107); Cholesterol 150 mg/dL (200); Creatinine, Serum 0.84 mg/dL (0.55-1.02); EST Glomerular Filtration Rate 73 mL/min (>60); Est Glom Filt Rate - Afr Amer 89 mL/min (>60); Globulin 3.3 g/dL (2.2-4.2); Glucose 113 mg/dL (74-106); High Density Lipoprotein 54 mg/dL; Potassium 3.6 mmol/L (3.5-5.1); Protein, Total 7.1 g/dL (6.4-8.2); Sodium Level 138 mmol/L (136-145); Thyroid Stim Hormone (TSH) 1.03 uIU/mL (0.358-3.74); Triglycerides 116 mg/dL; Very Low Density Lipoprotein 23 mg/dL (5-40)
== END ==
PROVIDERS: Family Provider Internal Medicine; PCP Internal Medicine; Visit Provider Internal Medicine
DX: E03.9 Hypothyroidism, unspecified (principal); R73.03 Prediabetes; E78.5 Hyperlipidemia, unspecified
CPT/HCPCS: 36415; 80053; 80061; 83036; 84443; 85025

== ENCOUNTER → 2019-02-12 10:14 | Outpatient (CLI) | payer BC, SELFPAY ==
[2019-02-09 10:30] VITALS: BMI 27.3
--- NOTE | 2019-02-12 10:17 | RAD_ITS ---
STUDY: X-RAY CHEST REASON FOR EXAM: Female, 63 years old. Cough. TECHNIQUE: Single PA view of the chest. COMPARISON: None. FINDINGS: The lungs are clear and expanded. Scattered calcified granulomas. There is no demonstrated pleural abnormality. Normal size heart. Normal mediastinum and nestor. Normal visualized pulmonary arteries. Normal visualized aortic arch and descending thoracic aorta. There are mild degenerative changes of the visualized thoracic spine. Small calcific density overlying the greater tuberosity on the left side suggestive possible calcific tendinitis. Clinical correlation is recommended. There is no demonstrated abnormality of the visualized soft tissue structures of the upper abdomen. RAD/Chest 1 View IMPRESSION: No acute abnormality is seen. Electronically Signed: Mariano Zuniga, at 15:57 EDT , Service support ,
== END ==
PROVIDERS: Family Provider Internal Medicine; PCP Internal Medicine; Referring Provider Internal Medicine; Visit Provider Internal Medicine
DX: R05 Cough (principal)
CPT/HCPCS: 71045

== ENCOUNTER → 2019-08-06 13:36 | Outpatient (CLI) | payer BC, SELFPAY ==
[2019-07-17 08:47] VITALS: BMI 27.3
== END ==
PROVIDERS: Family Provider Internal Medicine; PCP Internal Medicine; Referring Provider Nurse Practitioner Family; Visit Provider Nurse Practitioner Family
DX: R06.83 Snoring (principal); R40.0 Somnolence
CPT/HCPCS: 95806

== ENCOUNTER → 2019-10-29 20:09 | Outpatient (CLI) | payer BC, SELFPAY ==
[2019-09-04 09:09] VITALS: BMI 27.8
[2019-10-06 13:13] VITALS: BMI 27.8
== END ==
PROVIDERS: Family Provider Internal Medicine; PCP Internal Medicine; Referring Provider Nurse Practitioner Acute Care; Visit Provider Nurse Practitioner Acute Care
DX: G47.33 Obstructive sleep apnea (adult) (pediatric) (principal)
CPT/HCPCS: 95811

== ENCOUNTER → 2019-11-26 10:00 | Outpatient (CLI) | payer BC, SELFPAY ==
[2019-10-06 13:13] VITALS: BMI 27.8
== END ==
PROVIDERS: PCP Internal Medicine; Referring Provider Nurse Practitioner Acute Care; Visit Provider Nurse Practitioner Acute Care
DX: Z46.89 Encounter for fitting and adjustment of other specified devices (principal)

== ENCOUNTER → 2020-03-07 08:33 | Outpatient (CLI) | payer BC, SELFPAY ==
[2020-01-31 17:58] VITALS: BMI 27.8
[2020-03-07 10:12] LABS: Absolute Lymphocyte Count 1.57 X10^3/uL (0.83-4.51); Absolute Neutrophil Count 2.5 X10^3/uL (2.0-7.7); Basophil# 0.06 X10^3/uL; Basophil% 1.2 % (0-1); Eosinophil# 0.21 X10^3/uL; Eosinophils% 4.4 % (0-5); Hematocrit 42.3 % (37-47); Lymphocyte # 1.57 X10^3/ul (4.0); Lymphocyte % 32.6 % (19-41); Mean Corp Hgb Conc 33.1 g/dL (32-36); Mean Corpuscular Volume 93.8 fL (81-99); Mean Platelet Vol. 11.9 fl (6.2-12.0); Monocyte# 0.52 X10^3/uL; Monocyte% 10.8 % (0-10); NRBC Flagged by Analyzer 0 % (0-5); Neutrophil # 2.45 X10^3/uL (2.7-7.7); Neutrophil % 50.8 % (47-70); Platelet Count 213 K/mm3 (150-450); RBC Distribution Width CV 13.6 % (11.6-14.6); RBC Distribution Width SD 45.9 fl (35.1-43.9); Red Blood Count 4.51 M/mm3 (4.2-5.4); White Blood Count 4.8 K/mm3 (4.4-11.0)
[2020-03-07 10:27] LABS: AST(SGOT) 15 U/L (15-37); Alanine Aminotransfer ALT/SGPT 28 U/L (13-56); Albumin, Serum 3.6 g/dL (3.2-5.0); Alkaline Phosphatase 74 U/L (45-117); Anion Gap 7 (5-15); BUN 17 mg/dL (7-18); BUN/Creat Ratio 18.6 RATIO (10-20); Calcium,Total 8.9 mg/dL (8.5-10.1); Chloride 105 mmol/L (98-107); Cholesterol 163 mg/dL (200); Creatinine, Serum 0.92 mg/dL (0.55-1.02); EST Glomerular Filtration Rate 66 mL/min (>60); Est Glom Filt Rate - Afr Amer 80 mL/min (>60); Globulin 3.5 g/dL (2.2-4.2); Glucose 102 mg/dL (74-106); High Density Lipoprotein 54 mg/dL; Potassium 3.5 mmol/L (3.5-5.1); Protein, Total 7.1 g/dL (6.4-8.2); Sodium Level 139 mmol/L (136-145); Triglycerides 104 mg/dL; Very Low Density Lipoprotein 21 mg/dL (5-40)
[2020-03-07 11:26] LABS: Hemoglobin A1c 6.1 % (3.8-5.6)
== END ==
PROVIDERS: PCP Internal Medicine; Referring Provider Internal Medicine; Visit Provider Internal Medicine
DX: R73.03 Prediabetes (principal); E03.9 Hypothyroidism, unspecified; E78.5 Hyperlipidemia, unspecified; I10 Essential (primary) hypertension
CPT/HCPCS: 36415; 80053; 80061; 83036; 84443; 85025

== ENCOUNTER → 2020-06-12 15:51 | Outpatient (CLI) | payer BC, SELFPAY ==
[2020-06-12 15:08] VITALS: BMI 27.8
[2020-06-12 15:54] LABS: Bacteria 0 SEEN /hpf (None Seen); Mucous, Urine 0 SEEN /hpf (<or=2+)
[2020-06-12 16:57] LABS: Color, Urine Yellow (Yellow); Glucose, Dipstick Normal (Normal); Ketone-Dipstick Negative (Negative); Leukocyte Esterase-Dipstick 100 /ul (Negative); Nitrite-Dipstick Negative (Negative); Occult Blood-Urine Negative /ul (Negative); Protein-Dipstick Negative (Negative); Urine Bilirubin Dipstick Negative (Negative); Urine Clarity Sl. Cloudy (Clear); Urine Urobilinogen Normal (Normal); Urine pH 6.5 (5.0 - 8.0)
[2020-06-12 17:06] LABS: Red Blood Cells-Urine 0-5 SEEN /hpf (0-5); Squamous Epithelial Cells - UA 0-5 SEEN /hpf (5-10); White Blood Cells 5-10 SEEN /hpf (0-5)
== END ==
LOC: BIMLAB 15:53 → LABSPEC 15:54
PROVIDERS: PCP Internal Medicine; Referring Provider Internal Medicine; Visit Provider Internal Medicine
DX: R30.0 Dysuria (principal)
CPT/HCPCS: 81001

== ENCOUNTER → 2020-07-07 11:22 | Outpatient (CLI) | payer BC, SELFPAY ==
[2020-06-12 15:08] VITALS: BMI 27.8
--- NOTE | 2020-07-07 13:02 | NEURO ---
NCS and/or EMG Patient Report Ordering Doctor: Sarah Mcgraw DATE OF SERVICE: 07/07/20 Indication: Intermittent numbness and tingling in both hands throughout the day. Symptoms are most prominent at night. The patient feels as though the right hand is more bothersome, though she is left-hand dominant. Evaluate for possible median neuropathy across the wrist. Findings: Nerve conduction studies were performed in the right and left upper extremities. The right median motor study recording the abductor pollicis brevis showed a normal amplitude, prolonged distal latency and borderline conduction velocity. The right ulnar motor study recording the abductor digiti minimi showed a normal amplitude, normal distal latency and normal conduction velocity. No conduction block or focal slowing was present across the elbow. The right median sensory response recording digit two showed a reduced amplitude, prolonged latency and slowed conduction velocity. The right ulnar sensory response recording digit five showed a normal amplitude, latency and conduction velocity. The right radial sensory response recording over the extensor snuff box showed a normal amplitude, latency and conduction velocity. The right median palmar showed no response. The right ulnar palmar showed a normal amplitude, latency and conduction velocity. The left median motor study recording the abductor pollicis brevis showed a normal amplitude, markedly prolonged distal latency and normal conduction velocity. The left ulnar motor study recording the abductor digiti minimi showed a normal amplitude, normal distal latency and normal conduction velocity. No conduction block or focal slowing was present across the elbow. The left median sensory response recording digit two showed a reduced amplitude, prolonged latency and markedly slowed conduction velocity. The left ulnar sensory response recording digit five showed a normal amplitude, latency and conduction velocity. The left radial sensory response recording over the extensor snuff box showed a normal amplitude, latency and conduction velocity. Needle EMG of the left upper extremity and cervical paraspinal muscles was performed. Sparse active denervation was seen in the left abductor pollicis brevis muscle. Motor units in the abductor pollicis brevis were slightly enlarged and polyphasic. All other examined muscles (deltoid, triceps, first dorsal interosseous, cervical paraspinals) demonstrated normal motor unit morphology, recruitment and activation patterns. Needle EMG of the right abductor pollicis brevis muscle was performed. No active denervation was seen. Motor units revealed normal morphology, recruitment and activation patterns. Impression: This is an abnormal study. 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 The pathophysiology is predominantly demyelinating, however, there is some degree of active axonal loss to the thenar muscles. 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 The pathophysiology is demyelinating with no evidence of secondary axonal injury. In addition, there is no evidence of superimposed cervical radiculopathy in the left upper extremity. Anthony Bui D.O.
== END ==
PROVIDERS: PCP Internal Medicine; Referring Provider Internal Medicine; Visit Provider Internal Medicine
DX: G56.03 Carpal tunnel syndrome, bilateral upper limbs (principal)
CPT/HCPCS: 95885; 95886; 95912

== ENCOUNTER 2020-08-22 06:00 | Day surgery (SDC) | payer BC, SELFPAY ==
[2020-07-25 09:39] VITALS: BMI 27.1
--- NOTE | 2020-08-20 06:00 | HP_ITS ---
I have re-examined the patient. There are no clinical changes since date of exam. Intake Intake Visit Reasons: Bilat wrist Chief Complaint: Vaginal irrittation and Burning with urination. Allergies ascorbic acid [From Airborne (ascorbate sodium)] Allergy (Mild, Verified 03/28/20 10:52) unknown glutamine [From Airborne (ascorbate sodium)] Allergy (Mild, Verified 03/28/20 10:52) unknown herbal complex no. 124 [From Airborne (ascorbate sodium)] Allergy (Mild, Verified 03/28/20 10:52) unknown lysine HCl [From Airborne (ascorbate sodium)] Allergy (Mild, Verified 03/28/20 10:52) unknown multivitamin with minerals [From Airborne (ascorbate sodium)] Allergy (Mild, Verified 03/28/20 10:52) unknown lisinopril Adverse Reaction (Verified 03/28/20 10:52) cough PFSH Medical History (Updated 06/12/20 @ 15:07 by Anne Ayala) Seasonal allergies (Chronic) Prediabetes (Acute) Hypothyroid (Chronic) Hyperlipidemia (Chronic) Hypertension (Chronic) Arthritis (Acute) Asthma (Acute) Sleep apnea (Acute) Thyroid nodule (Acute) Surgical History H/O tubal ligation (Acute) Hx of tonsillectomy (Acute) uterine ablasion (Acute) Family History Mother Hypertension Heart disease Myocardial infarction age 87 Thyroid disorder Hyperlipidemia Father Hyperlipidemia Hypertension Arthritis Aunt Breast cancer Social History (Updated 07/22/20 @ 14:[address] Subha Hoff DO) Smoking Status: Never smoker alcohol intake: never substance use type: does not use what type of physical activity do you participate in: none HPI Bilat wrist: Surgical H&P: Yes Details: Parts of this documentation were recorded by a scribe, this documentation accurately reflects the service provided and the decisions made by me, Dr. Subha Hoff DO 07/22/20 1306. ROSELIA CERVANTES is a 65 year old F NEW patient here today for BL wrist and hand numbness. Patient is a new patient referred to us by Dr. Shrestha. States that she has numbness of her BL 1-4th fingers. Does note some pain as well. states right ring finger locks up on her and her right has been dropping things and getting weaker recently. Anti-inflammatories prn. she has tried night bracing for 2 months but right is worse than left weakness dropping things and left is more just numbness and tingling. Ortho Exam General General: Yes no acute distress Neurologic: Yes alert, Yes oriented x3 Psychologic: Yes reasonable and appropriate Right Wrist/Hand Skin/Wound: No Swelling, No Ecchymosis, Yes capillary refill normal A1 judi trigger: Yes Right Wrist: Yes Tinel's, Phalen's and Thenar Atrophy Motor: EPL: 5, FDP-2: 4, 1st Dorsal Interosseous: 5, APB: 4 Sensation: Radial: I, Ulnar: I, Median: D Left Wrist/Hand Skin/Wound: No Swelling, No Ecchymosis Left Wrist: Yes Durken's Test; no Snuffbox tenderness or no Amalia's Test Motor: EPL: 5, FDP-2: 5, 1st Dorsal Interosseous: 5, APB: 5 Sensation: Radial: I, Ulnar: I, Median: D Assessment & Plan Problems 1. Bilateral carpal tunnel syndrome G56.03 2. Trigger finger, right ring finger M65.341 Plan Personally reviewed patients EMG and X-rays of the BL hands. Patient educated that she does have carpal tunnel syndrome of the BL hands. Educated that the right is worse than the left and she does have thenar atrophy of the right side. Treatment options are do nothing or bracing or OT or steroid injection or carpal tunnel release. Reviewed the pre-operative plans with the patient. Risks and benefits of the procedure were fully explained, including but not limited to infection, neurovascular injury, continued pain, arthritis, stiffness, need for further surgery, re-injury, DVT, PE, general risks of anesthesia, and loss of limb or life. The patient understands all the risks and does wish to proceed with written consent. She wishes to proceed with right carpal tunnel release and left carpal tunnel injection today. We discussed the current risk associated COVID-19. While it is understood that there is a community spread of COVID 19 the risk of gaurav COVID-[address] [facility] is very low, however, the risk cannot be completely mitigated because of the community spread of the disease. We discussed in detail the risk of exposure to and or potential harm posed by the COVID-19 virus with having a surgery/procedure at this time versus the risk of delaying the surgery/procedure. Is not possible to know either the risk of delaying the surgery procedure or chance of getting an infection with perfect accuracy, but a joint decision was made to proceed at this time with a schedule surgery/procedure as indicated on the consent form. Patient was notified that we will need to comply with any screening or testing [facility] wishes to perform or that surgery may be delayed for any positive results. Patient also educated that she has a trigger finger of the right ring finger. Treatment options for this are do nothing or steroid injection or surgical A1 Judi release. Surgery consent signed for right carpal tunnel release, right ring finger A1 judi release and left carpal tunnel injection. Follow up post op or sooner if pain, swelling, numbness or associated symptoms, or concerns develop. All questions answered. Patient in agreement of plan. Orders Orders: Hand Min 3 Views Today M79.641, M79.642 Hand Min 3 Views Today M79.641, M79.642 Coding Level of Care Code 35553 Diagnoses Bilateral carpal tunnel syndrome G56.03 Trigger finger, right ring finger M65.341 COVID (Procedure Consent) Procedure Criteria Procedure Criteria: Yes Elective The surgeon/proceduralist and patient have discussed in detail the risk of exposure to and/or potential harm posed by the COVID-19 virus with having a surgery/procedure at this time versus the risk of? delaying the surgery/procedure. It is not possible to know either the risk of delaying the surgery or procedure or chance of getting an infection with perfect accuracy, but a joint decision was made between the patient and the surgeon/proceduralist ?to proceed at this time with the scheduled surgery/procedure as indicated on the consent form.
[2020-08-22] VITALS (7 sets, daily range): BP systolic 119–148; BP diastolic 70–85; PULSE 78–96; RESP 14–18; TEMP 36.2–36.8; O2SAT 87–98; BMI 28.6
[2020-08-22] MEDS: Lactated Ringers 1,000 ML 100 ML IV (06:54)
[2020-08-22] MEDS: Cefazolin 2 GM in 0.9% Normal Saline 100 ML IV (07:22)
[2020-08-22] MEDS: Mupirocin Ointment 22gm Tube 1 APPLIC (08:02)
[2020-08-22] MEDS: Triamcinolone Acetonide 40 MG/ML Vial (08:03)
[2020-08-22] MEDS: Lidocaine 1% (2ml-nursery) 2 ML VIAL (08:03)
--- NOTE | 2020-08-22 08:20 | PCM.DC.ORTHO ---
Discharge Diet: No Restrictions - leave dressing intact until postop visit in 2 weeks Discharge Activity: May Not Drive May shower in (days): 1 Ice area for (Minutes): 20 - Every hour while awake. Weight Bearing Status: Weight bearing as tolerated Keep extremity elevated above heart level: Operative Extremity Call your doctor if your incision/area has: Continuous Slow Oozing, Sudden Increased Bleeding, Increased Pain/ Swelling, Increased Redness, Foul Smelling Discharge Call your doctor if you observe: Fever of 101 or Higher, Coldness, Increased Pain, Numbness or Tingling, Change in Color, Calf discomfort Allergies/Adverse Reactions: Allergies lisinopril Adverse Reaction (Verified 08/14/20 09:01) cough dust Allergy (Uncoded 08/14/20 09:05) PT UNSURE OF REACTION sneezing,congestion,cough Medications to take at Discharge calcium carbonate-vitamin D3 600 mg (1,500 mg)-400 unit capsule 1 cap PO DAILY 09/09/17 multivitamin 1 cap PO QDAY 09/09/17 lutein 20 mg capsule 20 mg PO QDAY #90 cap 08/06/19 naproxen 500 mg tablet 500 mg PO BID PRN #120 tab 08/06/19 potassium chloride 10 mEq capsule,extended release 10 meq PO QDAY #90 cap 08/06/19 aspirin 81 mg tablet,delayed release 81 mg PO DAILY 02/21/20 fluticasone propionate 50 mcg/actuation nasal spray,suspension 1 spray INTRANASAL DAILY 02/21/20 hydrocortisone 2.5 % topical cream 1 applic TOPICAL BID PRN #30 g 06/13/20 albuterol sulfate 90 mcg/actuation aerosol inhaler 2 puff INHALATION BID g 07/25/20 hydrochlorothiazide 25 mg tablet 25 mg PO QDAY #90 tab 08/01/20 levothyroxine 88 mcg tablet 88 mcg PO QHS #90 tab 08/01/20 rosuvastatin 10 mg tablet 10 mg PO QHS #90 tab 08/13/20 Amlodipine Besylate 2.5 mg PO QDAY 08/14/20 Loratadine [Claritin] 10 mg PO QHS 08/14/20 Losartan Potassium 100 mg PO QDAY 08/14/20 Acetaminophen/Codeine #3 [Tylenol #3 Tablet] 1 - 2 tablet PO Q6H PRN PRN #30 tablet 08/22/20 The following prescriptions were given: Acetaminophen/Codeine #3 [Tylenol #3 Tablet] 1 - 2 tablet PO Q6H PRN PRN #30 tablet PRN Reason: Pain Transmission Status: Sent to [facility] Primary Care Physician: Sarah Mcgraw MD [Primary Care Provider] - Test Results: Test results from this visit will be discussed in further detail at your follow-up appointment, if applicable. Please Follow Up With: Subha Hoff, - [phone]
--- NOTE | 2020-08-22 08:21 | OP.PCM_ITS ---
Report of Operation Date of Procedure: 08/22/20 Pre-Operative Diagnosis: bilateral carpal tunnel syndrome, right ring trigger finger Post-Operative Diagnosis: same Surgery/Procedure Performed:: right carpal tunnel release, right trigger finger a1 judi release, left carpal tunnel injection Type of Anesthesia:: BlockBharath Anesthesiologist: Ivan Franco Fluids Replaced: 600cc Description of Procedure: Preoperative note Patient is a 65 year old patient with nerve conduction study confirming lateral carpal tunnel syndrome on physical exam patient also has triggering of her right ring. Patient failed conservative treatment for her carpal tunnel elected proceed with right carpal tunnel release, left carpal tunnel injection, right fourth A1 judi release. Risks benefits and alternatives surgery discussed with patient. Risks including but not limited to blood loss, blood clot, infection, neurovascular injury, failure procedure, loss of life and loss of li mb. Patient is aware like proceed with right carpal tunnel release. Operative note Patient seen and examined preoperative holding area. right hand carpal tunnel as well as ring finger was marked. History and physical and consent reviewed. Patient was brought to the operating room placed supine on the operating table. Sign in, anesthesia, antibiotics were administered. right upper extremity was prepped and draped after Malden block was initiated. all bony prominences well- padded SCDs placed on bilateral lower extremities. We marked out our incisions for our carpal tunnel release at the intersection of Treasure's line in the fourth ray flexed. We extended about a centimeter and a half. Timeout was performed. We then checked ensure that the Bharath block was working with pickups which it was. We then used a 15 blade to make a skin incision. We then dissected down tenotomy syllable of the transverse carpal ligament. We then used a new 15 blade cut through the transverse carpal ligament down to the level of the median nerve. We then further released the median nerve the combination of the 15 blade and tenotomies. The nerve was grayish in color and adherent to the transverse carpal ligament volarly. We released the transverse carpal ligament distally to the fat pad and then proximally under standard technique. We then palpated to ensure that we released all of the transverse carpal ligament which we did. We irrigated the incision with copious amounts of sterile saline. All bleeders were coagulated. The incision was closed with interrupted 4-0 nylon stitches. We marked out our incision at the A1 judi of the right middle finger. We was about a centimeter and a half for length. We used a 15 blade to cut the skin tenotomies to dissect down to the level of the A1 judi. We then released the A1 judi both proximally and distally we then brought the tendons out of the incision and flex and extend at the DIP of the right middle finger to ensure that we had no further locking which we did not have. We then irrigated the incision with copious amounts of sterile saline. Incision was closed with interrupted 4-0 nylon stitches. Tourniquet was deflated for total working time of 6 minutes. We then injected the left carpal tunnel in standard sterile technique with 1 cc of ropivacaine and half cc Kenalog. Tourniquet was deflated for total working time of 10 minutes. Patient tolerated procedure well there were no complications. Patient transferred to recovery room in stable condition. Postoperative note Hospital pharmacy has prescription Leave dressing clean dry and intact Follow-up in 2 weeks Call with concerns This note was generated with [employer] software. It may contain incorrect words, spelling, and punctuation that were not noted in checking the note before signing
== END 2020-08-22 10:18 | disposition home or self-care (01) ==
LOC: SDC 06:00 → AC 06:03
PROVIDERS: PCP Internal Medicine; Referring Provider Orthopaedic Surgery; Visit Provider Orthopaedic Surgery
PROC: (CPT 64721; principal; 2020-08-22 07:15)
DX: G56.03 Carpal tunnel syndrome, bilateral upper limbs (principal); M65.341 Trigger finger, right ring finger; E03.9 Hypothyroidism, unspecified; E78.5 Hyperlipidemia, unspecified; I10 Essential (primary) hypertension
CPT/HCPCS: 01810; 26055; 64721; 87426; C9803; J7120; A4216; J2405

== ENCOUNTER → 2020-10-31 13:43 | Outpatient (CLI) | payer BC, SELFPAY ==
[2020-09-04 11:14] VITALS: BMI 27.1
[2020-10-31 16:05] LABS: Anion Gap 6 (5-15); BUN 17 mg/dL (7-18); BUN/Creat Ratio 20.2 RATIO (10-20); Calcium,Total 9.5 mg/dL (8.5-10.1); Chloride 108 mmol/L (98-107); Creatinine, Serum 0.84 mg/dL (0.55-1.02); EST Glomerular Filtration Rate 72 mL/min (>60); Est Glom Filt Rate - Afr Amer 88 mL/min (>60); Glucose 116 mg/dL (74-106); Potassium 3.4 mmol/L (3.5-5.1); Sodium Level 140 mmol/L (136-145)
[2020-10-31 16:16] LABS: Hemoglobin A1c 6.2 % (3.8-5.6)
[2020-11-01 09:28] LABS: SARS-COV-2 TOTAL ABS Reactive (Nonreactive)
== END ==
PROVIDERS: PCP Internal Medicine; Referring Provider Internal Medicine; Visit Provider Internal Medicine
DX: U07.1 COVID-19 (principal); R73.03 Prediabetes; I10 Essential (primary) hypertension
CPT/HCPCS: 36415; 80048; 83036; 86769

== ENCOUNTER 2020-12-19 09:00 | Day surgery (SDC) | payer BC, SELFPAY ==
[2020-09-04 11:14] VITALS: BMI 27.1
[2020-12-19] VITALS (7 sets, daily range): BP systolic 107–145; BP diastolic 61–88; PULSE 70–101; RESP 16–18; TEMP 36.4–36.9; O2SAT 94–98; BMI 29.1
--- NOTE | 2020-12-19 07:14 | HP_ITS ---
I have re-examined the patient. There are no clinical changes since date of exam. Intake Intake Visit Reasons: LEFT WRIST Accompanied by: Self Is patient in pain?: Yes (numbness) Pain scale (1-10): 4 Allergies lisinopril Adverse Reaction (Verified 12/09/20 13:15) cough dust Allergy (Uncoded 12/09/20 13:15) PT UNSURE OF REACTION Medications calcium carbonate-vitamin D3 600 mg (1,500 mg)-400 unit capsule 1 cap PO DAILY 09/09/17 [History Confirmed 12/09/20] multivitamin 1 cap PO QDAY 09/09/17 [History Confirmed 12/09/20] lutein 20 mg capsule 20 mg PO QDAY #90 cap 08/06/19 [Rx Confirmed 12/09/20] naproxen 500 mg tablet 500 mg PO BID PRN #120 tab 08/06/19 [Rx Confirmed 12/09/20] aspirin 81 mg tablet,delayed release 81 mg PO DAILY 02/21/20 [History Confirmed 12/09/20] fluticasone propionate 50 mcg/actuation nasal spray,suspension 1 spray INTRANASAL DAILY 02/21/20 [History Confirmed 12/09/20] hydrocortisone 2.5 % topical cream 1 applic TOPICAL BID PRN #30 g 06/13/20 [Rx Confirmed 12/09/20] albuterol sulfate 90 mcg/actuation aerosol inhaler 2 puff INHALATION BID g 07/25/20 [History Confirmed 12/09/20] hydrochlorothiazide 25 mg tablet 25 mg PO QDAY #90 tab 08/01/20 [Rx Confirmed 12/09/20] levothyroxine 88 mcg tablet 88 mcg PO QHS #90 tab 08/01/20 [Rx Confirmed 12/09/20] rosuvastatin 10 mg tablet 10 mg PO QHS #90 tab 08/13/20 [Rx Confirmed 12/09/20] Amlodipine Besylate 2.5 mg PO QDAY 08/14/20 [History Confirmed 12/09/20] Losartan Potassium 100 mg PO QDAY 08/14/20 [History Confirmed 12/09/20] cetirizine 10 mg capsule 10 mg PO DAILY 10/28/20 [History Confirmed 12/09/20] turmeric 400 mg capsule mg PO DAILY cap 10/28/20 [History Confirmed 12/09/20] potassium chloride 10 mEq capsule,extended release 20 meq PO QDAY #90 cap 11/03/20 [Rx Confirmed 12/09/20] [facility] Medical History (Updated 08/22/20 @ 08:[address] Subha Hoff, ) Seasonal allergies (Chronic) Prediabetes (Acute) Hypothyroid (Chronic) Hyperlipidemia (Chronic) Hypertension (Chronic) Arthritis (Acute) Asthma (Acute) Sleep apnea (Acute) Thyroid nodule (Acute) Surgical History H/O tubal ligation (Acute) Hx of tonsillectomy (Acute) uterine ablasion (Acute) Family History Mother Hypertension Heart disease Myocardial infarction age 87 Thyroid disorder Hyperlipidemia Father Hyperlipidemia Hypertension Arthritis Aunt Breast cancer Social History (Updated 12/10/20 @ 12:[address] Subha Hoff, ) Smoking Status: Never smoker alcohol intake: never substance use type: does not use what type of physical activity do you participate in: none HPI LEFT WRIST: Surgical H&P: Yes Details: Parts of this documentation were recorded by a scribe, this documentation accurately reflects the service provided and the decisions made by me, Dr. Subha Hoff, 12/09/20 1305. ROSELIA CERVANTES is a 65 year old F here today for her left wrist. Wants to discuss having her left wrist carpal tunnel options. Patient's last injection was 08/22/2020. Patient is having numbness and tingling again. Patient has been taking naproxen for her pain prn. Patient states she tries not to take anything recently. Patient has been wearing her bracing at night. 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 ROS Musc Reports system reviewed and no additional complaints, except as docu, Reports joint pain, Reports numbness, Reports tingling Neuro Yes numbness, Yes tingling Ortho Exam General General: Yes no acute distress Neurologic: Yes alert, Yes oriented x3 Psychologic: Yes reasonable and appropriate Right Wrist/Hand Date of Surgery: 08/22/20 Skin/Wound: No Swelling, No Ecchymosis, Yes capillary refill normal Right Wrist: Yes ROM-Extension 0-60, ROM-Flexion 0-80, ROM-Pronation 0-80 and ROM-Supination 0-90 Sensation: Radial: I, Ulnar: I, Median: I Left Wrist/Hand Skin/Wound: No Swelling, No Ecchymosis Left Wrist: Yes ROM-Extension 0-60, Yes ROM-Flexion 0-80, Yes ROM-Pronation 0-80 and Yes ROM-Supination 0-90 Motor: EPL: 5, FDP-2: 4, 1st Dorsal Interosseous: 5, APB: 4 Sensation: Radial: I, Ulnar: I, Median: D Assessment & Plan Problems 1. Left carpal tunnel syndrome G56.02 Plan Personally reviewed the patient's medical history, medications, surgeries and recent exams if available. Patient edcuated that she has left carpal tunnel syndrome. Treatment options are do nothign or PT or carpal tunnel release. Reviewed the pre-operative plans with the patient. Risks and benefits of the procedure were fully explained, including but not limited to infection, neurovascular injury, continued pain, arthritis, stiffness, need for further surgery, re-injury, DVT, PE, general risks of anesthesia, and loss of limb or life. The patient understands all the risks and does wish to proceed with written consent for left carpal tunnel release. Follow up post op or sooner if pain, swelling, numbness or associated symptoms, or concerns develop. All questions answered. Patient in agreement of plan. Coding Level of Care Code Off vis,est,level 4 Diagnoses Left carpal tunnel syndrome G56.02 COVID (Procedure Consent) Procedure Criteria Procedure Criteria: Yes Elective The surgeon/proceduralist and patient have discussed in detail the risk of exposure to and/or potential harm posed by the COVID-19 virus with having a surgery/procedure at this time versus the risk of? delaying the surgery/procedure. It is not possible to know either the risk of delaying the surgery or procedure or chance of getting an infection with perfect accuracy, but a joint decision was made between the patient and the surgeon/proceduralist ?to proceed at this time with the scheduled surgery/procedure as indicated on the consent form.
[2020-12-19] MEDS: Lactated Ringers 1,000 ML 100 ML IV (09:43)
[2020-12-19] MEDS: Cefazolin 2 GM in 0.9% Normal Saline 100 ML IV (10:25)
[2020-12-19] MEDS: Mupirocin Ointment 22gm Tube 1 APPLIC (10:35)
[2020-12-19] MEDS: Lidocaine 1% /Epi 1:100 (20ml) 20 ML Vial (10:53)
--- NOTE | 2020-12-19 11:12 | OP.PCM_ITS ---
Report of Operation Date of Procedure: 12/19/20 Pre-Operative Diagnosis: Left carpal tunnel syndrome Post-Operative Diagnosis: Same Surgery/Procedure Performed:: Left carpal tunnel release Type of Anesthesia:: Bharath Alvares, Local Anesthesiologist: Ivan Franco Estimated Blood Loss (mL): min Fluids Replaced: 500cc lr Description of Procedure: Preoperative note Patient is a { 65 } patient with nerve conduction study confirming carpal tunnel syndrome. Patient failed conservative treatment for her carpal tunnel elected proceed with left carpal tunnel release. Risks benefits and alternatives surgery discussed with patient. Risks including but not limited to blood loss, blood clot, infection, neurovascular injury, failure procedure, loss of life and loss of limb. Patient is aware like proceed with left carpal tunnel release. Operative note Patient seen and examined preoperative holding area. Left hand was marked. History and physical and consent reviewed. Patient was brought to the operating room placed supine on the operating table. Sign in, anesthesia, antibiotics were administered. Left upper extremity was prepped and draped after [place] block was initiated. All bony prominences well-padded SCDs placed on bilateral lower extremities. We marked out our incisions for our carpal tunnel release at the intersection of Treasure's line in the fourth ray flexed. We extended about a centimeter and a half. Timeout was performed. We then checked ensure that the Bharath block was working with pickups which it was but patient had what appeared to be a venous tourniquet so we injected local to minimze bleeding- 6cc lidocaine with epi. We then used a 15 blade to make a skin incision. We then dissected down tenotomy syllable of the transverse carpal ligament. We then used a new 15 blade cut through the transverse carpal ligament down to the level of the median nerve. We then further released the median nerve the combination of the 15 blade and tenotomies. The nerve was grayish in color and adherent to the transverse carpal ligament volarly. We released the transverse carpal ligament distally to the fat pad and then proximally under standard technique. We then palpated to ensure that we released all of the transverse carpal ligament which we did. We irrigated the incision with copious amounts of steri le saline. All bleeders were coagulated. The incision was closed with interrupted 4-0 nylon stitches. Tourniquet was deflated for total working time of 14 minutes. Patient tolerated procedure well there were no complications. Patient transferred to recovery room in stable condition. Postoperative note [facility] pharmacy has prescription Leave dressing clean dry and intact Follow-up in 2 weeks Call with concerns This note was generated with [employer] dictation software. It may contain incorrect words, spelling, and punctuation that were not noted in checking the note before signing.
--- NOTE | 2020-12-19 11:12 | DCINST_ITS ---
Discharge Diet: No Restrictions - Leave dressing on until seen in postop clinic in 10-14 days for suture removal, keep dressing clean, dry, intact; change dressing if gets wet/dirty, call with concerns Discharge Activity: May Not Drive May shower in (days): 1 Ice area for (Minutes): 20 - Every hour while awake. Weight Bearing Status: Weight bearing as tolerated Keep extremity elevated above heart level: Operative Extremity Call your doctor if your incision/area has: Continuous Slow Oozing, Sudden Increased Bleeding, Increased Pain/ Swelling, Increased Redness, Foul Smelling Discharge Call your doctor if you observe: Fever of 101 or Higher, Coldness, Increased Pain, Numbness or Tingling, Change in Color, Calf discomfort Allergies/Adverse Reactions: Allergies lisinopril Adverse Reaction (Verified 12/19/20 09:10) cough dust Allergy (Uncoded 12/19/20 09:10) PT UNSURE OF REACTION sneezing,congestion,cough Medications to take at Discharge calcium carbonate-vitamin D3 600 mg (1,500 mg)-400 unit capsule 1 cap PO DAILY 09/09/17 multivitamin 1 cap PO QDAY 09/09/17 lutein 20 mg capsule 20 mg PO QDAY #90 cap 08/06/19 naproxen 500 mg tablet 500 mg PO BID PRN #120 tab 08/06/19 aspirin 81 mg tablet,delayed release 81 mg PO DAILY 02/21/20 fluticasone propionate 50 mcg/actuation nasal spray,suspension 1 spray INTRANASA L DAILY 02/21/20 hydrocortisone 2.5 % topical cream 1 applic TOPICAL BID PRN #30 g 06/13/20 albuterol sulfate 90 mcg/actuation aerosol inhaler 2 puff INHALATION BID g 07/25/20 hydrochlorothiazide 25 mg tablet 25 mg PO QDAY #90 tab 08/01/20 levothyroxine 88 mcg tablet 88 mcg PO QHS #90 tab 08/01/20 rosuvastatin 10 mg tablet 10 mg PO QHS #90 tab 08/13/20 Amlodipine Besylate 2.5 mg PO QDAY 08/14/20 Losartan Potassium 100 mg PO QDAY 08/14/20 cetirizine 10 mg capsule 10 mg PO DAILY 10/28/20 turmeric 400 mg capsule 400 mg PO DAILY cap 10/28/20 potassium chloride 10 mEq capsule,extended release 20 meq PO QDAY #90 cap 11/03/20 Acetaminophen/Codeine #3 [Tylenol #3 Tablet] 1 - 2 tablet PO Q6H PRN PRN #15 tablet 12/19/20 The following prescriptions were given: Acetaminophen/Codeine #3 [Tylenol #3 Tablet] 1 - 2 tablet PO Q6H PRN PRN #15 tablet PRN Reason: Pain Transmission Status: Received by [facility] Primary Care Physician: Sarah Mcgraw MD [Primary Care Provider] - Test Results: Test results from this visit will be discussed in further detail at your follow- up appointment, if applicable. Please Follow Up With: Subha Hoff, DO - [phone]
== END 2020-12-19 12:52 | disposition home or self-care (01) ==
LOC: SDC 09:01 → AC 09:01
PROVIDERS: PCP Internal Medicine; Referring Provider Orthopaedic Surgery; Visit Provider Orthopaedic Surgery
PROC: (CPT 64721; principal; 2020-12-19 11:15)
DX: G56.02 Carpal tunnel syndrome, left upper limb (principal); Z79.82 Long term (current) use of aspirin; E78.5 Hyperlipidemia, unspecified; I10 Essential (primary) hypertension
CPT/HCPCS: 64721; 87426; C9803; J7120

== ENCOUNTER → 2021-02-06 13:29 | Outpatient (CLI) | payer BC, SELFPAY ==
[2021-02-06 13:08] VITALS: BMI 29.1
[2021-02-06 15:41] LABS: ALB/GLOB Ratio 1.3 RATIO (0.9-2.4); AST(SGOT) 16 U/L (15-37); Alanine Aminotransfer ALT/SGPT 29 U/L (13-56); Albumin, Serum 3.8 g/dL (3.2-5.0); Alkaline Phosphatase 80 U/L (45-117); Anion Gap 8 (5-15); BUN 16 mg/dL (7-18); BUN/Creat Ratio 21.9 RATIO (10-20); Calcium,Total 8.7 mg/dL (8.5-10.1); Chloride 106 mmol/L (98-107); Cholesterol 165 mg/dL (200); Creatinine, Serum 0.73 mg/dL (0.55-1.02); EST Glomerular Filtration Rate 85 mL/min (>60); Est Glom Filt Rate - Afr Amer 103 mL/min (>60); Globulin 2.9 g/dL (2.2-4.2); Glucose 113 mg/dL (74-106); High Density Lipoprotein 54 mg/dL; Potassium 3.6 mmol/L (3.5-5.1); Protein, Total 6.7 g/dL (6.4-8.2); Sodium Level 143 mmol/L (136-145); Thyroid Stim Hormone (TSH) 1.36 uIU/mL (0.358-3.74); Triglycerides 274 mg/dL; Very Low Density Lipoprotein 55 mg/dL (5-40)
== END ==
PROVIDERS: PCP Internal Medicine; Referring Provider Internal Medicine; Visit Provider Internal Medicine
DX: I10 Essential (primary) hypertension (principal); E78.5 Hyperlipidemia, unspecified; E03.9 Hypothyroidism, unspecified
CPT/HCPCS: 36415; 80053; 80061; 84443

== ENCOUNTER → 2021-05-15 08:30 | Outpatient (CLI) | payer BC, SELFPAY ==
[2021-05-08 10:55] VITALS: BMI 29.0
--- NOTE | 2021-05-15 08:34 | US_ITS ---
STUDY: THYROID ULTRASOUND REASON FOR EXAM: Female, 66 years old. Thyroid nodule. TECHNIQUE: Ultrasound evaluation of the thyroid was performed with real-time and static cam-scale imaging. COMPARISON: Previous studies were performed at the [facility] and are not available for comparison. FINDINGS: RIGHT LOBE: The right lobe of the thyroid gland measures 4.7 x 2.1 x 1.6 cm. There is a heterogeneous echotexture. There is a 1.0 x 1.0 x 0.7 cm partially calcified nodule in the lower pole with acoustic shadowing. More posteriorly there is an isoechoic nodule measuring 1.0 x 0.9 x 0.6 cm. Annual vascularity and DOPPLER imaging. LEFT LOBE: The left lobe of the thyroid gland measures 4.7 x 1.7 x 1.6 cm. There is a heterogeneous echotexture. There are no demonstrated solid, cystic or complex lesions. Normal vascularity and DOPPLER imaging. ISTHMUS: The isthmus measures 0.3 cm. The regional lymph nodes are normal. US/Thyroid IMPRESSION: 1. Heterogenous thyroid. There are 2 nodules in the right thyroid. The larger posterior nodule is characterized by TIRADS criteria as a TR 4 moderately suspicious. No evidence or follow-up is required due to its small size. The smaller calcified nodule is characterized as a TR 6, highly suspicious. FNA is recommended. Correlation of the above nodules with the prior studies is necessary to evaluate for stability. Electronically Signed: Mark Garvin DO at 17:06 EDT Tel [phone], Service support ,
== END ==
PROVIDERS: PCP Internal Medicine; Referring Provider Internal Medicine; Visit Provider Internal Medicine
DX: E04.1 Nontoxic single thyroid nodule (principal)
CPT/HCPCS: 76536

== ENCOUNTER → 2021-08-07 11:05 | Outpatient (CLI) | payer BC, SELFPAY ==
[2021-08-07 12:44] LABS: Anion Gap 5 (5-15); BUN 16 mg/dL (7-18); BUN/Creat Ratio 17.9 RATIO (10-20); Calcium,Total 9.4 mg/dL (8.5-10.1); Chloride 107 mmol/L (98-107); Creatinine, Serum 0.89 mg/dL (0.55-1.02); EST Glomerular Filtration Rate 67 mL/min (>60); Est Glom Filt Rate - Afr Amer 81 mL/min (>60); Glucose 152 mg/dL (74-106); Potassium 3.4 mmol/L (3.5-5.1); Sodium Level 141 mmol/L (136-145)
[2021-08-07 12:49] LABS: Hemoglobin A1c 6.1 % (3.8-5.6)
[2021-08-07 16:52] LABS: Rheumatoid Factor < 10.0 IU/mL (<15)
[2021-08-12 13:59] LABS: CCP IgG Antibodies 6 units (0-19)
== END ==
PROVIDERS: PCP Internal Medicine; Referring Provider Internal Medicine; Visit Provider Internal Medicine
DX: R73.03 Prediabetes (principal); M19.90 Unspecified osteoarthritis, unspecified site; I10 Essential (primary) hypertension
CPT/HCPCS: 36415; 80048; 83036; 86200; 86431

== ENCOUNTER 2021-10-06 11:58 | Outpatient (CLI) | payer BC, SELFPAY | END 2021-10-06 23:59 | disposition short-term general hospital (02) | LOC: LABSPEC 12:00 | PROVIDERS: PCP Internal Medicine; Referring Provider Physician Assistant; Visit Provider Physician Assistant | DX: R31.9 Hematuria, unspecified (principal); R30.0 Dysuria | CPT/HCPCS: 87086; 87088; 87186 ==

== ENCOUNTER 2021-10-12 11:42 | Outpatient (CLI) | payer BC, SELFPAY ==
[2021-10-12 11:44] LABS: Bacteria 0 SEEN /hpf (None Seen); Mucous, Urine 0 SEEN /hpf (<or=2+); Red Blood Cells-Urine 0 SEEN /hpf (0-5); Squamous Epithelial Cells - UA 0 SEEN /hpf (5-10); White Blood Cells 0 SEEN /hpf (0-5)
[2021-10-12 15:54] LABS: Color, Urine Yellow (Yellow); Glucose, Dipstick Normal (Normal); Ketone-Dipstick Negative (Negative); Leukocyte Esterase-Dipstick Negative /ul (Negative); Nitrite-Dipstick Negative (Negative); Occult Blood-Urine Negative /ul (Negative); Protein-Dipstick Negative (Negative); Urine Bilirubin Dipstick Negative (Negative); Urine Clarity Clear (Clear); Urine Urobilinogen Normal (Normal)
== END 2021-10-12 23:59 | disposition short-term general hospital (02) ==
LOC: LABSPEC 11:43
PROVIDERS: PCP Internal Medicine; Referring Provider Physician Assistant; Visit Provider Physician Assistant
DX: N39.0 Urinary tract infection, site not specified (principal)
CPT/HCPCS: 81001; 87086

== ENCOUNTER 2021-12-22 05:53 | Day surgery (SDC) | payer BC, SELFPAY ==
[2021-12-22 06:18] VITALS: BP 154/73; PULSE 70; RESP 18; TEMP 36.2; O2SAT 97; BMI 29.8
[2021-12-22] MEDS: Lactated Ringers 1,000 ML 15 ML IV (06:30)
--- NOTE | 2021-12-22 07:10 | HP.PCM_ITS ---
History and Physical Date of Admission: 12/22/21 OFFICE VISITDate of Service: 12/04/21 MR#:[id number]:[id number]: ROSELIA CERVANTES #:[id number] Provider:Dr. Talat Yang, DOAge/Sex: 66/F Location[facility]:Signed Intake Vital Signs 11/24/21 13:40 Height 5 ft 7 in Intake Visit Reasons: bilat hands Allergies lisinopril Adverse Reaction (Verified 12/04/21 10:05) cough dust Allergy (Uncoded 12/04/21 10:05) PT UNSURE OF REACTION Medications calcium carbonate 600 mg-vitamin D3 10 mcg (400 unit) capsule 1 cap PO DAILY 09/09/17 [History Confirmed 12/04/21] multivitamin 1 cap PO QDAY 09/09/17 [History Confirmed 12/04/21] lutein 20 mg capsule 20 mg PO QDAY #90 cap 08/06/19 [Rx Confirmed 12/04/21] naproxen 500 mg tablet 500 mg PO BID PRN #120 tab 08/06/19 [Rx Confirmed 12/04/21] aspirin 81 mg tablet,delayed release 81 mg PO DAILY 02/21/20 [History Confirmed 12/04/21] fluticasone propionate 50 mcg/actuation nasal spray,suspension 1 spray INTRANASAL DAILY 02/21/20 [History Confirmed 12/04/21] hydrocortisone 2.5 % topical cream 1 applic TOPICAL BID PRN #30 g 06/13/20 [Rx Confirmed 12/04/21] cetirizine 10 mg capsule 10 mg PO DAILY 10/28/20 [History Confirmed 12/04/21] turmeric 400 mg capsule 400 mg PO DAILY cap 10/28/20 [History Confirmed 12/04/21] potassium chloride 10 mEq capsule,extended release 20 meq PO QDAY #90 cap 11/03/20 [Rx Confirmed 12/04/21] glucosamine-chondroitin 250 mg-200 mg tablet 1 tab PO BID tab 05/08/21 [History Confirmed 12/04/21] albuterol sulfate 90 mcg/actuation aerosol inhaler 2 puff INHALATION BID #8.5 g 06/29/21 [Rx Confirmed 12/04/21] amlodipine 2.5 mg tablet 2.5 mg PO QDAY #90 tab 06/30/21 [Rx Confirmed 12/04/21] hydrochlorothiazide 25 mg tablet 25 mg PO QDAY #90 tab 06/30/21 [Rx Confirmed 12/04/21] levothyroxine 88 mcg tablet 88 mcg PO QHS #90 tab 06/30/21 [Rx Confirmed 12/04/21] losartan 100 mg tablet 100 mg PO QDAY #90 tab 06/30/21 [Rx Confirmed 12/04/21] rosuvastatin 10 mg tablet 10 mg PO QHS #90 tab 07/03/21 [Rx Confirmed 12/04/21] estradiol 1 g VAGINAL 2XW g 11/20/21 [History Confirmed 12/04/21] PFSH Medical History Arthritis Asthma Flu vaccine need Frequent UTI Hyperlipidemia Hypertension Hypothyroid Osteoarthritis Prediabetes Seasonal allergies Seasonal allergies Sleep apnea Thyroid nodule Trigger finger Surgical History H/O tubal ligation History of carpal tunnel release Hx of tonsillectomy uterine ablasion Family History Mother Hypertension Heart disease Myocardial infarction age 87 Thyroid disorder Hyperlipidemia Father Hyperlipidemia Hypertension Arthritis Aunt Breast cancer Social History Smoking Status: Never smoker alcohol intake: never substance use type: does not use what type of physical activity do you participate in: none HPI bilat hands Details: Parts of this documentation were recorded by a scribe, this documentation accurately reflects the service provided and the decisions made by me, Dr. Talat Yang, DO 12/04/21 1001. ROSELIA CERVANTES is a 66 year old F here today for trigger finger pain in both hands. Pt states she has been having this pain since the weather got cold. Pt denies any previous injections in either trigger finger. Pt states should would rather not have injections if she can have surgery to repair them. Pt states she has had carpal tunnel surgery on both wrists and surgery for trigger finger on her right ring finger. Pt states she doesn't take NSAID's or Tylenol often. left ring finger has been triggering for about 4-6 months. Denies any trama to the left hand. Left index finger is also triggering. She has right middle and index finger triggering. Patient was very agitated with staff because her appointment was at 930 and she was not seen till 10:00 we did explain to her that we had our computers down all morning but this did not seem to appease her. Ortho Exam General General: Yes no acute distress Neurologic: Yes alert and Yes oriented x3 Psychologic: Yes reasonable and appropriate Right Wrist/Hand Skin/Wound: No Swelling, No Ecchymosis and Yes capillary refill normal A1 judi trigger: Yes (index and middle fingers) WRIST: lacking 20 extension right middle PIP Left Wrist/Hand Skin/Wound: No Swelling, No Ecchymosis, Yes capillary refill normal and No erythema A1 judi trigger: Yes (index and ring fingers) WRIST: tenderness over left ring finger A1 judi lacking 30 extension PIP joint ring finger left hand lacking 10 extension DIP of index finger Coding Level of Care Code Off vis,est,level 4 Diagnoses Trigger finger M65.30 Assessment and Plan Assessment and Plan (1) Trigger finger: Status: Chronic Comment: bilateral hand index and left ring and right middle finger. Plan - Dr. Talat Yang, DO: Patient educated that she has palpable triggering of the right middle and index fingers on exam and she also has left index and ring finger triggering. Treatment options for this are do nothing or steroid injection into A1 judi or A1 judi release. Reviewed the pre-operative plans with the patient. Patient wishes to proceed with LEFT index and ring finger A1 judi release and RIGHT hand index and middle finger A1 judi injections. Risks and benefits of the procedure were fully explained, including but not limited to infection, neurovascular injury, continued pain, arthritis, stiffness, need for further surgery, re-injury, DVT, PE, general risks of anesthesia, and loss of limb or life. The patient understands all the risks and does wish to proceed with written consent. SHe will need to stop aspirin and NSAIDs 7 days prior to the surgery. We will call her to schedule surgery. Follow up 2 weeks post op or sooner if pain, swelling, numbness or associated symptoms, or concerns develop. All questions answered. Patient in agreement of plan. 12/04/21 1121<Electronically signed by Talat Yang DO>Date Talat Yang DO I have re-examined the patient. There are no clinical changes since date of exam
[2021-12-22] MEDS: Cefazolin 2 GM in 0.9% Normal Saline 100 ML IV (07:20)
[2021-12-22] MEDS: Lidocaine 1% (50 ml mdv) 50 ML Vial (07:40)
[2021-12-22] MEDS: MethylPREDNISolone Acetate 40 MG/ML Vial IM (08:02)
[2021-12-22] MEDS: Bupivacaine 0.25% 30 ML Vial (08:05)
[2021-12-22 08:10] VITALS: BP 154/73; BP 156/82; PULSE 82; RESP 16; TEMP 36.8; O2SAT 96
--- NOTE | 2021-12-22 08:12 | PCM.OPRPT ---
Report of Operation Date of Procedure: 12/22/21 Description of Surgical Findings:: Preoperative diagnosis; left index and ring trigger finger , right index and middle digit trigger finger Postoperative diagnosis; same Procedure: Left index and ring digit A1 judi release, right index and middle A1 judi injection Anesthesia: Local with MAC Tourniquet time; 20 minutes 250 mm Hg Complications: None Indication for procedure; This is a 66-year-old female with symptoms consistent with trigger fingers. Risks benefits and alternatives were reviewed including risks of bleeding infection nerve tendon tissue damage need for further surgery and continued pain and symptoms, hypersensitivity to scar/incision and recurrence. Procedure; The patient was met in the preoperative holding area the operative extremity was identified by both patient and physician and was marked the patient was met by anesthesia and brought back to the operating room and transferred to the operating table in the supine position. Aanesthesia was started. A well-padded tourniquet was placed on the operative upper extremity. The patient was prepped and draped in the usual sterile fashion. A timeout was called to ensure the proper patient procedure and extremity were being contemplated. 0.5 percent Marcaine was injected into the incisional area. Esmarch was used tourniquet was inflated. 15 blade scalpel was used to make a longitudinal incision directly over the A1 judi was carried down through the subcutaneous tissue Celestine retractors placed radial and ulnar protecting the digital nerves and a Ragnell retractor was used at the apex of the incision under direct visualization a deep blade scalpel was used to release the A1 judi. The procedure was then repeated for the ring finger fourth digit the wounds were thoroughly irrigated and closed with 4-0 nylon vertical mattress edges. Dressing was applied in the form of Xeroform 4 x 4 web roll and an Aníbal wrap. Patient tolerated the procedure well was brought back to the PACU in stable condition.
[2021-12-22 08:15] VITALS: BP 150/84; BP 154/73; PULSE 75; RESP 16; O2SAT 95
--- NOTE | 2021-12-22 08:16 | DCINST_ITS ---
Discharge Instructions Activity Additional Activity Instructions:: Ice and elevate operative extremity next 72 hours. Keep dressing on clean and dry for 72 hours then may remove and allow warm soapy water to rinse over incision but do not submerge until sutures are out. Then apply bandaid over incision and change daily. encourage finger range of motion. Not lift more than 1/2 pound. Minimize narcotic use only as needed and directed, may use OTC NSAID and Tylenol to supplement/substitute for pain control. Follow Up Care Please Follow Up With: Talat Yang DO When: 2 weeks Test Results: Test results from this visit will be discussed in further detail at your follow-up appointment, if applicable. Discharge Plan Admission Attending Provider: Talat Yang Primary Care Provider: Sarah Mcgraw Discharge Orders/Prescriptions Prescriptions: New oxycodone 5 mg tablet 2.5 - 5 mg PO Q4H PRN (Reason: pain) 5 Days Qty: 10 RF: 0 No Action calcium carbonate-vitamin D3 [Calcium 600 with Vitamin D3] 600 mg(1,500mg) - 400 unit capsule 1 cap PO DAILY RF: 0 multivitamin capsule capsule 1 cap PO QDAY RF: 0 aspirin 81 mg tablet,delayed release (DR/EC) 81 mg PO DAILY RF: 0 Zyrtec 10 mg capsule 10 mg PO DAILY RF: 0 turmeric 400 mg capsule 400 mg PO DAILY RF: 0 glucosamine-chondroitin [Osteo Bi-Flex] 250-200 mg tablet 1 tab PO BID RF: 0 estradiol 0.01 % (0.1 mg/gram) cream 1 g vaginal 2XW RF: 0 lutein 20 mg capsule 20 mg PO QDAY Qty: 90 RF: 0 naproxen 500 mg tablet 500 mg PO BID PRN (Reason: pain) Qty: 120 RF: 1 hydrocortisone 2.5 % cream 1 applic TOPICAL BID PRN (Reason: skin irritation) Qty: 30 RF: 0 potassium chloride 10 mEq capsule, extended release 20 meq PO QDAY Qty: 90 RF: 3 albuterol sulfate 90 mcg/actuation HFA aerosol inhaler 2 puff INHALATION BID Qty: 8.5 RF: 2 amlodipine 2.5 mg tablet 2.5 mg PO QDAY Qty: 90 RF: 3 hydrochlorothiazide 25 mg tablet 25 mg PO QDAY Qty: 90 RF: 3 levothyroxine 88 mcg tablet 88 mcg PO QHS Qty: 90 RF: 3 losartan 100 mg tablet 100 mg PO QDAY Qty: 90 RF: 3 rosuvastatin 10 mg tablet 10 mg PO QHS Qty: 90 RF: 3 Referrals / Follow Up: Sarah Mcgraw MD [Primary Care Provider] - Disposition Disposition (needs filled in before D/C Order can be placed): Home, Self Care
[2021-12-22 08:20] VITALS: BP 152/86; BP 154/73; PULSE 71; RESP 16; O2SAT 96
[2021-12-22 08:25] VITALS: BP 147/83; BP 154/73; PULSE 79; RESP 16; TEMP 36.6; O2SAT 96
[2021-12-22 08:52] VITALS: BP 154/73
== END 2021-12-22 23:59 | disposition home or self-care (01) ==
LOC: SDC 05:54 → AC 05:55
PROVIDERS: PCP Internal Medicine; Referring Provider Orthopaedic Surgery; Visit Provider Orthopaedic Surgery
PROC: (CPT 26055; principal; 2021-12-22 07:20)
DX: M65.342 Trigger finger, left ring finger (principal); M65.322 Trigger finger, left index finger; M65.331 Trigger finger, right middle finger; M65.321 Trigger finger, right index finger; I10 Essential (primary) hypertension; E78.5 Hyperlipidemia, unspecified; R73.03 Prediabetes; G47.30 Sleep apnea, unspecified; Z79.82 Long term (current) use of aspirin; Z79.1 Long term (current) use of non-steroidal anti-inflammatories (NSAID); Z79.899 Other long term (current) drug therapy; Z79.890 Hormone replacement therapy
CPT/HCPCS: 26055 ×2; 20550 ×2; J7120

== ENCOUNTER → 2022-02-22 | Outpatient (CLI) | payer BC, SELFPAY ==
[2022-02-22 13:05] LABS: ALB/GLOB Ratio 1.1 RATIO (0.9-2.4); AST(SGOT) 20 U/L (15-37); Alanine Aminotransfer ALT/SGPT 32 U/L (13-56); Albumin, Serum 3.6 g/dL (3.2-5.0); Alkaline Phosphatase 68 U/L (45-117); Anion Gap 5 (5-15); BUN 14 mg/dL (7-18); BUN/Creat Ratio 17.1 RATIO (10-20); Calcium,Total 8.5 mg/dL (8.5-10.1); Chloride 104 mmol/L (98-107); Cholesterol 142 mg/dL (200); Creatinine, Serum 0.82 mg/dL (0.55-1.02); EST Glomerular Filtration Rate 74 mL/min (>60); Est Glom Filt Rate - Afr Amer 90 mL/min (>60); Globulin 3.4 g/dL (2.2-4.2); Glucose 117 mg/dL (74-106); Hemoglobin A1c 6.3 % (3.8-5.6); High Density Lipoprotein 52 mg/dL; Potassium 3.7 mmol/L (3.5-5.1); Sodium Level 137 mmol/L (136-145); Thyroid Stim Hormone (TSH) 0.75 uIU/mL (0.358-3.74); Triglycerides 102 mg/dL; Very Low Density Lipoprotein 20 mg/dL (5-40)
== END | disposition home or self-care (01) ==
LOC: BIMLAB 08:58
PROVIDERS: PCP Internal Medicine; Referring Provider Internal Medicine; Visit Provider Internal Medicine
DX: E03.9 Hypothyroidism, unspecified (principal); R73.03 Prediabetes
CPT/HCPCS: 36415; 80053; 80061; 83036; 84443

== ENCOUNTER → 2022-05-27 | Outpatient (CLI) | payer BC, SELFPAY ==
--- NOTE | 2022-05-27 12:28 | US_ITS ---
STUDY: THYROID ULTRASOUND REASON FOR EXAM: Female, 67 years old. Thyroid nodules. TECHNIQUE: Ultrasound evaluation of the thyroid was performed with real-time and static cam-scale imaging. COMPARISON: Comparison is made with prior examination dated 05/15/2021. FINDINGS: RIGHT LOBE: The right lobe of the thyroid gland measures 4.6 cm x 2.2 cm x 1.8 cm. There is a heterogeneous echotexture. Once again, there is a 1 cm x 0.8 cm x 0.8 cm partially calcified hypoechoic solid nodule in the lower pole. Adjacent to this, there is a 1 cm x 0.97 x 0.8 cm solid nodule with partial calcification. This is unchanged. LEFT LOBE: The left lobe of the thyroid gland measures 4.9 cm x 1.7 cm x 1.4 cm. There is a heterogeneous echotexture. There are no demonstrated solid, cystic or complex lesions. ISTHMUS: The isthmus measures 5 mm. The regional lymph nodes are normal. US/Thyroid IMPRESSION: Heterogeneous appearance of both lobes of the thyroid. Stable appearance of the 2 nodules in the right lobe of the thyroid. Electronically Signed: Mariano Zuniga MD at 14:40 EDT ,
== END | disposition home or self-care (01) ==
LOC: US 12:27
PROVIDERS: PCP Internal Medicine; Referring Provider Surgery; Visit Provider Surgery
DX: E04.2 Nontoxic multinodular goiter (principal)
CPT/HCPCS: 76536

== ENCOUNTER → 2022-09-23 | Outpatient (CLI) | payer BC, SELFPAY ==
[2022-09-23 12:18] LABS: Absolute Lymphocyte Count 1.79 X10^3/uL (0.83-4.51); Absolute Neutrophil Count 2.8 X10^3/uL (2.0-7.7); Basophil# 0.04 X10^3/uL; Basophil% 0.7 % (0-1); Eosinophils% 3.7 % (0-5); Hematocrit 43.8 % (37-47); Lymphocyte # 1.79 X10^3/ul (0.83-4.51); Lymphocyte % 33.3 % (19-41); Mean Corpuscular Hgb 30.4 pg (27.0-32.0); Mean Platelet Vol. 12.2 fl (6.2-12.0); Monocyte# 0.55 X10^3/uL; Monocyte% 10.2 % (0-10); NRBC Flagged by Analyzer 0 % (0-5); Neutrophil # 2.79 X10^3/uL (2.7-7.7); Neutrophil % 51.9 % (47-70); Platelet Count 204 K/mm3 (150-450); RBC Distribution Width CV 13.5 % (11.6-14.6); RBC Distribution Width SD 47.2 fl (35.1-43.9); Red Blood Count 4.61 M/mm3 (4.2-5.4); White Blood Count 5.4 K/mm3 (4.4-11.0)
[2022-09-23 12:34] LABS: ALB/GLOB Ratio 1.1 RATIO (0.9-2.4); AST(SGOT) 14 U/L (15-37); Alanine Aminotransfer ALT/SGPT 26 U/L (13-56); Albumin, Serum 3.6 g/dL (3.2-5.0); Alkaline Phosphatase 76 U/L (45-117); Anion Gap 10 (5-15); BUN 21 mg/dL (7-18); BUN/Creat Ratio 26.8 RATIO (10-20); Chloride 106 mmol/L (98-107); Creatinine, Serum 0.78 mg/dL (0.55-1.02); EST Glomerular Filtration Rate 78 mL/min (>60); Est Glom Filt Rate - Afr Amer 94 mL/min (>60); Globulin 3.3 g/dL (2.2-4.2); Glucose 123 mg/dL (74-106); Potassium 3.5 mmol/L (3.5-5.1); Protein, Total 6.9 g/dL (6.4-8.2); Sodium Level 139 mmol/L (136-145)
[2022-09-23 12:51] LABS: Hemoglobin A1c 6.5 % (3.8-5.6)
== END | disposition home or self-care (01) ==
LOC: BIMLAB 08:32
PROVIDERS: PCP Internal Medicine; Referring Provider Internal Medicine; Visit Provider Internal Medicine
DX: R73.03 Prediabetes (principal); I10 Essential (primary) hypertension
CPT/HCPCS: 36415; 80053; 83036; 85025

== ENCOUNTER 2022-12-10 08:47 | Day surgery (SDC) | payer BC, SELFPAY ==
[2022-12-10] VITALS (8 sets, daily range): BP systolic 100–161; BP diastolic 57–79; PULSE 66–86; RESP 16; TEMP 36.3–36.6; O2SAT 92–98; BMI 29.7
[2022-12-10] MEDS: Lactated Ringers 1,000 ML 15 ML IV (09:24)
--- NOTE | 2022-12-10 09:40 | PCM.HP.BLA ---
History and Physical Date of Admission: 12/10/22 [facility] [address] [place] [address] OFFICE VISIT Date of Service:? 11/26/22 MR#: [id number] Acct: [id number] Name:ROSELIA HERRMANN Rep #: [id number] : 1955 ? ? Provider: Dr. Talat Yang, DO Age/Sex:? 67/F ? ? Location: [facility] – [place] Status: Signed Intake Intake Visit Reasons:?RIGHT HAND Is patient in pain?: Yes Allergies Environmental Allergies: Uncoded [dust] Allergy (Verified 11/26/22 09:54) Otherlisinopril Adverse Reaction (Verified 11/26/22 09:54) cough Medications calcium carbonate 600 mg-vitamin D3 10 mcg (400 unit) capsule (Calcium 600 with Vitamin D3) 1 cap PO DAILY 09/09/17 [History Confirmed 11/26/22] multivitamin 1 cap PO QDAY 09/09/17 [History Confirmed 11/26/22] lutein 20 mg capsule 20 mg PO QDAY #90 caps 08/06/19 [Rx Confirmed 11/26/22] aspirin 81 mg tablet,delayed release 81 mg PO DAILY 02/21/20 [History Confirmed 11/26/22] hydrocortisone 2.5 % topical cream 1 applic topical BID PRN skin irritation #30 grams 06/13/20 [Rx Confirmed 11/26/22] cetirizine 10 mg capsule (Zyrtec) 10 mg PO DAILY 10/28/20 [History Confirmed 11/26/22] turmeric 400 mg capsule 400 mg PO DAILY 10/28/20 [History Confirmed 11/26/22] glucosamine-chondroitin 250 mg-200 mg tablet (Osteo Bi-Flex) 1 tab PO BID 05/08/21 [History Confirmed 11/26/22] acyclovir 400 mg tablet 400 mg PO BID PRN 02/26/22 [History Confirmed 11/26/22] cranberry 400 mg capsule 400 mg PO DAILY 02/26/22 [History Confirmed 11/26/22] fluticasone propionate 50 mcg/actuation nasal spray,suspension (Flonase Allergy Relief) 1 spray intranasal DAILY 02/26/22 [History Confirmed 11/26/22] albuterol sulfate 90 mcg/actuation aerosol inhaler 2 puff inhalation BID asthma #8.5 grams 06/08/22 [Rx Confirmed 11/26/22] amlodipine 2.5 mg tablet 2.5 mg PO QDAY bp #90 tabs 06/08/22 [Rx Confirmed 11/26/22] hydrochlorothiazide 25 mg tablet 25 mg PO QDAY #90 tabs 07/26/22 [Rx Confirmed 11/26/22] levothyroxine 88 mcg tablet 88 mcg PO QHS #90 tabs 07/26/22 [Rx Confirmed 11/26/22] rosuvastatin 10 mg tablet 10 mg PO QHS #90 tabs 07/26/22 [Rx Confirmed 11/26/22] losartan 100 mg tablet 100 mg PO QDAY bp #90 tabs 10/28/22 [Rx Confirmed 11/26/22] potassium chloride 10 mEq capsule,extended release 20 meq PO QDAY #90 caps 10/28/22 [Rx Confirmed 11/26/22] PFSH Medical History? Arthritis Asthma BiPAP (biphasic positive airway pressure) dependence Constipation Flu vaccine need Frequent UTI High cholesterol History of echocardiogram Hyperlipidemia Hypertension Hypertension Hypothyroid Osteoarthritis Post-menopausal Prediabetes Seasonal allergies Seasonal allergies Shortness of breath on exertion Sleep apnea Sleep apnea Thyroid disease Thyroid nodule Trigger finger Wears glasses Surgical History? H/O tubal ligation History of carpal tunnel release History of hysteroscopy Hx of colonoscopy Hx of toe surgery Hx of tonsillectomy uterine ablasion Family History? Mother Hypertension Heart disease Myocardial infarction ?? ? age 87 Thyroid disorder HyperlipidemiaFather Hyperlipidemia Hypertension ArthritisAunt Breast cancer Social History? Smoking Status:? Never smoker alcohol intake:? never substance use type:? does not use what type of physical activity do you participate in:? none HPI RIGHT HAND Details: Parts of this documentation were recorded by a scribe, this documentation accurately reflects the service provided and the decisions made by me, Dr. Talat Yang, DO 11/26/2216. ROSELIA CERVANTES is a 67 year old F here today for right middle finger. She has constant soreness of her finger. Patient states that she has locking of his finger and uses her other hand to help straighten her finger. Patient states that the locking started about 4 months ago. She states that she is unable to open anything or carry items due to her pain. Patient denies any injections. She had a ?Left index and ring digit A1 judi release, right index and middle A1 judi injection dos 12/22/[address] Yang.? She also had right carpal tunnel release, right trigger finger a1 judi release, left carpal tunnel injection on 08/22/[address] Hoff[address] Ortho Exam General General: Yes no acute distress Neurologic: Yes alert and Yes oriented x3 Psychologic: Yes reasonable and appropriate Right Wrist/Hand Skin/Wound: No Swelling, No Ecchymosis and Yes capillary refill normal WRIST: palpable hypertrophy of middle finger A1 judi with tenderness, significant triggering of middle finger , scar tissue of ring finger incision with sensitivity. Left Wrist/Hand Skin/Wound: No Swelling and No Ecchymosis Head: Normocephalic Atraumatic Chest: symmetrical rise, non-labored breathing, no audible wheeze Abdomen: no guarding, non-rigid Coding Level of Care Code Off vis,est,level 3 Diagnoses Trigger finger, right middle finger? M65.331 Assessment and Plan Assessment and Plan (1) Trigger finger, right middle finger: Plan Spoke with the patient about the surgery right middle finger A1 judi release procedure. Explained the healing process and lifting restrictions. Reviewed the pre-operative plans with the patient. Risks and benefits of the procedure were fully explained, including but not limited to infection, neurovascular injury, continued pain, incisional hypersensitivity recurrence of trigger finger,? stiffness, need for further surgery, re-injury, DVT, PE, general risks of anesthesia, and loss of limb or life. The patient understands all the risks and does wish to proceed with written consent. Follow up 2 weeks post op or sooner if pain, swelling, numbness or associated symptoms, or concerns develop.? All questions answered. Patient in agreement of plan. 11/26/22 1011 <Electronically signed by Talat Yang DO> Date Talat Yang DO I have examined the patient and the H&P has been reviewed. There are no clinical changes since date of exam.
[2022-12-10] MEDS: Cefazolin 2 GM in 0.9% Normal Saline 100 ML IV (09:57)
[2022-12-10] MEDS: Bupiv/Epi 0.25% 30 ML Vial (10:08)
--- NOTE | 2022-12-10 10:23 | OP.PCM_ITS ---
Operative Report Date of Procedure: 12/10/22 Preoperative diagnosis; right middle finger trigger finger Postoperative diagnosis; same Procedure: Right middle finger digit A1 judi release Anesthesia: Local with MAC Tourniquet time; 10 minutes 250 mm Hg Complications: None Indication for procedure; This is a 67-year-old female with symptoms consistent with trigger finger. Risks benefits and alternatives were reviewed including risks of bleeding infection nerve tendon tissue damage need for further surgery and continued pain and symptoms, hypersensitivity to scar/incision and recurrence. Procedure; The patient was met in the preoperative holding area the operative extremity was identified by both patient and physician and was marked the patient was met by anesthesia and brought back to the operating room and transferred to the operating table in the supine position. Aanesthesia was started. A well-padded tourniquet was placed on the operative upper extremity. The patient was prepped and draped in the usual sterile fashion. A timeout was called to ensure the proper patient procedure and extremity were being c ontemplated. 0.5 percent Marcaine was injected into the incisional area. Esmarch was used tourniquet was inflated. 15 blade scalpel was used to make a longitudinal incision directly over the A1 judi was carried down through the subcutaneous tissue Celestine retractors placed radial and ulnar protecting the digital nerves and a Ragnell retractor was used at the apex of the incision under direct visualization a deep blade scalpel was used to release the A1 judi. The wound was thoroughly irrigated and closed with 4-0 nylon vertical mattress edges. Dressing was applied in the form of Xeroform 4 x 4 web roll and an Aníbal wrap. Patient tolerated the procedure well was brought back to the PACU in stable condition.
--- NOTE | 2022-12-10 10:24 | DCINST_ITS ---
Discharge Instructions Diet Discharge Diet: No restrictions Dressing / Incision Call your doctor if you observe: Shortness of breath and Chest pain Additional Dressing/Incision Instructions:: Ice and elevate operative extremity next 72 hours. Keep dressing on clean and dry for 48 hours then may remove and allow warm soapy water to rinse over incision but do not submerge until sutures are out. Then apply bandaid over incision and change daily. encourage finger range of motion. Not lift more than 1/2 pound. Minimize narcotic use only as needed and directed, may use OTC NSAID and Tylenol to supplement/substitute for pain control. Follow Up Care Please Follow Up With: Talat Yang DO When: 2 weeks Test Results: Test results from this visit will be discussed in further detail at your follow- up appointment, if applicable. Discharge Plan Admission Primary Reason for Your Visit: Right middle finger A1 judi release Attending Provider: Talat Yang Primary Care Provider: Sarah Mcgraw Discharge Orders/Prescriptions Prescriptions: New oxycodone 5 mg tablet 5 - 10 mg PO Q4H PRN (Reason: pain) 3 Days Qty: 10 0RF No Action calcium carbonate-vitamin D3 [Calcium 600 with Vitamin D3] 600 mg(1,500mg) - 400 unit capsule 1 cap PO DAILY multivitamin capsule capsule 1 cap PO QDAY aspirin 81 mg tablet,delayed release (DR/EC) 81 mg PO DAILY Zyrtec 10 mg capsule 10 mg PO DAILY turmeric 400 mg capsule 400 mg PO DAILY glucosamine-chondroitin [Osteo Bi-Flex] 250-200 mg tablet 1 tab PO DAILY cranberry 400 mg capsule 400 mg PO DAILY Rx Instructions: administer with a meal acyclovir 400 mg tablet 400 mg PO BID PRN (Reason: Cold Sores) amlodipine 2.5 mg tablet 2.5 mg PO QDAY Qty: 90 3RF albuterol sulfate 90 mcg/actuation HFA aerosol inhaler 2 puff INHALATION PRN PRN (Reason: ASTHMA) lutein 20 mg capsule 20 mg PO QDAY Qty: 90 0RF hydrocortisone 2.5 % cream 1 applic TOPICAL BID PRN (Reason: skin irritation) Qty: 30 0RF levothyroxine 88 mcg tablet 88 mcg PO QHS Qty: 90 3RF hydrochlorothiazide 25 mg tablet 25 mg PO QDAY Qty: 90 3RF rosuvastatin 10 mg tablet 10 mg PO QHS Qty: 90 3RF losartan 100 mg tablet 100 mg PO QDAY Qty: 90 3RF potassium chloride 10 mEq capsule, extended release 20 meq PO QDAY Qty: 90 3RF Referrals / Follow Up: Sarah Mcgraw MD [Primary Care Provider] - Disposition Disposition (needs filled in before D/C Order can be placed): Home, Self Care
== END 2022-12-10 11:51 | disposition home or self-care (01) ==
LOC: SDC 08:47 → AC 08:48
PROVIDERS: PCP Internal Medicine; Referring Provider Orthopaedic Surgery; Visit Provider Orthopaedic Surgery
PROC: (CPT 26055; principal; 2022-12-10 10:15)
DX: M65.331 Trigger finger, right middle finger (principal); R05.3 Chronic cough; K59.00 Constipation, unspecified; I10 Essential (primary) hypertension; E03.9 Hypothyroidism, unspecified; E78.5 Hyperlipidemia, unspecified
CPT/HCPCS: 26055; 01810; J7120; J2405

== ENCOUNTER → 2023-03-12 | Outpatient (CLI) | payer BC, SELFPAY ==
[2023-03-12 14:45] LABS: Mucous, Urine 0 SEEN /hpf (<or=2+)
[2023-03-12 14:50] LABS: Color, Urine Yellow (Yellow); Glucose, Dipstick 50 mg/dl (Normal); Ketone-Dipstick Negative (Negative); Leukocyte Esterase-Dipstick 25 /ul (Negative); Nitrite-Dipstick Positive (Negative); Occult Blood-Urine 250 /ul (Negative); Protein-Dipstick 30 mg/dl (Negative); Urine Bilirubin Dipstick Negative (Negative); Urine Clarity Clear (Clear); Urine Urobilinogen Normal (Normal)
[2023-03-12 15:10] LABS: Red Blood Cells-Urine > 100 SEEN /hpf (0-5); White Blood Cells 5-10 SEEN /hpf (0-5)
[2023-03-12 15:11] LABS: Bacteria 1+ /hpf (None Seen); Squamous Epithelial Cells - UA 0-5 SEEN /hpf (5-10)
== END | disposition home or self-care (01) ==
PROVIDERS: PCP Internal Medicine; Visit Provider Physician Assistant Surgical
DX: N39.0 Urinary tract infection, site not specified (principal)
CPT/HCPCS: 81001; 87077; 87086; 87088; 87186

== ENCOUNTER → 2023-04-08 | Outpatient (CLI) | payer MEDICARE, SELFPAY ==
[2023-04-08 12:58] LABS: ALB/GLOB Ratio 1.1 RATIO (0.9-2.4); AST(SGOT) 17 U/L (15-37); Alanine Aminotransfer ALT/SGPT 29 U/L (13-56); Albumin, Serum 3.6 g/dL (3.2-5.0); Alkaline Phosphatase 75 U/L (45-117); Anion Gap 6 (5-15); BUN 15 mg/dL (7-18); BUN/Creat Ratio 16.7 RATIO (10-20); Calcium,Total 8.7 mg/dL (8.5-10.1); Chloride 106 mmol/L (98-107); Cholesterol 147 mg/dL (200); EST Glomerular Filtration Rate 67 mL/min (>60); Est Glom Filt Rate - Afr Amer 81 mL/min (>60); Globulin 3.4 g/dL (2.2-4.2); Glucose 194 mg/dL (74-106); High Density Lipoprotein 54 mg/dL; Potassium 3.4 mmol/L (3.5-5.1); Sodium Level 139 mmol/L (136-145); Thyroid Stim Hormone (TSH) 1.67 uIU/mL (0.358-3.74); Triglycerides 107 mg/dL; Very Low Density Lipoprotein 21 mg/dL (5-40)
[2023-04-08 13:05] LABS: Microalbumin,Random Urine 5.8 mg/L (NO RANGE EST.); Microalbumin:Creatinine Ratio 8.3 mg/g CRE (<30 mg/g CRE)
== END | disposition home or self-care (01) ==
LOC: BIMLAB 10:43
PROVIDERS: PCP Internal Medicine; Referring Provider Internal Medicine; Visit Provider Internal Medicine
DX: E03.9 Hypothyroidism, unspecified (principal); E11.9 Type 2 diabetes mellitus without complications; E78.5 Hyperlipidemia, unspecified; I10 Essential (primary) hypertension
CPT/HCPCS: 36415; 80053; 80061; 82043; 82570; 84443

== ENCOUNTER → 2023-05-27 | Outpatient (CLI) | payer MEDICARE, SELFPAY ==
--- NOTE | 2023-05-27 11:44 | US_ITS ---
STUDY: THYROID ULTRASOUND REASON FOR EXAM: Female, 68 years old. hypothyroidism TECHNIQUE: Ultrasound evaluation of the thyroid was performed with real-time and static cam-scale imaging. COMPARISON: 05/27/2022 FINDINGS: RIGHT LOBE: The right lobe of the thyroid gland measures 5.0 x 1.9 x 1.9 cm. There is a heterogeneous echotexture. Nodule 1: No change in the 10 x 7 x 9 mm solid isoechoic wider than tall smoothly marginated nodule with peripheral calcifications (TR 4) in the anterior right lobe and follow-up ultrasound is recommended in one year. Nodule 2: No change in a 9 x 9 x 9 mm solid hypoechoic wider than tall ill-defined margin nodule with no echogenic foci (TR 4) in the posterior right lobe consistent with an adenoma. LEFT LOBE: The left lobe of the thyroid gland measures 4.5 x 1.6 x 1.8 cm. There is a heterogeneous echotexture. There are no demonstrated solid, cystic or complex lesions. ISTHMUS: The isthmus measures 4 mm thick. . The regional lymph nodes are normal. US/Thyroid IMPRESSION: Thyroiditis with no change in nodules in the right lobe and follow-up ultrasound is recommended in one year. Electronically Signed: Hipolito Curtis MD at 21:46 EDT ,
== END | disposition home or self-care (01) ==
LOC: US 11:44
PROVIDERS: PCP Internal Medicine; Referring Provider Surgery; Visit Provider Surgery
DX: E03.9 Hypothyroidism, unspecified (principal)
CPT/HCPCS: 76536

== ENCOUNTER → 2023-08-19 | Outpatient (CLI) | payer MEDICARE, SELFPAY ==
[2023-08-19 16:33] LABS: Absolute Lymphocyte Count 2.08 X10^3/uL (0.83-4.51); Absolute Neutrophil Count 3.4 X10^3/uL (2.0-7.7); Basophil# 0.06 X10^3/uL; Basophil% 0.9 % (0-1); Eosinophil# 0.33 X10^3/uL; Eosinophils% 5.1 % (0-5); Hematocrit 43.9 % (37-47); Hemoglobin 14.6 g/dL (12.0-15.0); Lymphocyte # 2.08 X10^3/ul (0.83-4.51); Mean Corp Hgb Conc 33.3 g/dL (32-36); Mean Corpuscular Hgb 31.1 pg (27.0-32.0); Mean Corpuscular Volume 93.4 fL (81-99); Mean Platelet Vol. 11.7 fl (6.2-12.0); Monocyte# 0.66 X10^3/uL; Monocyte% 10.1 % (0-10); NRBC Flagged by Analyzer 0 % (0-5); Neutrophil # 3.37 X10^3/uL (2.7-7.7); Neutrophil % 51.7 % (47-70); Platelet Count 209 K/mm3 (150-450); RBC Distribution Width CV 13.3 % (11.6-14.6); White Blood Count 6.5 K/mm3 (4.4-11.0)
[2023-08-19 16:43] LABS: Anion Gap 6 (5-15); BUN 16 mg/dL (7-18); BUN/Creat Ratio 22.3 RATIO (10-20); Calcium,Total 9.2 mg/dL (8.5-10.1); Chloride 105 mmol/L (98-107); Creatinine, Serum 0.72 mg/dL (0.55-1.02); EST Glomerular Filtration Rate 86 mL/min (>60); Est Glom Filt Rate - Afr Amer 104 mL/min (>60); Glucose 131 mg/dL (74-106); Potassium 3.6 mmol/L (3.5-5.1); Sodium Level 139 mmol/L (136-145)
[2023-08-19 16:50] LABS: Hemoglobin A1c 6.4 % (3.8-5.6)
[2023-08-19 16:53] LABS: Thyroid Stim Hormone (TSH) 0.73 uIU/mL (0.358-3.74)
== END | disposition home or self-care (01) ==
LOC: BIMLAB 14:55
PROVIDERS: PCP Internal Medicine; Referring Provider Internal Medicine; Visit Provider Internal Medicine
DX: I10 Essential (primary) hypertension (principal); R73.03 Prediabetes; E03.9 Hypothyroidism, unspecified
CPT/HCPCS: 36415; 80048; 83036; 84443; 85025

== ENCOUNTER → 2023-09-29 | Outpatient (CLI) | payer MEDICARE, SELFPAY ==
--- NOTE | 2023-09-29 13:57 | BD_ITS ---
STUDY: DUAL ENERGY X-RAY ABSORPTIOMETRY / DXA REASON FOR EXAM: Female, 68 years old. Post - Menopausal TECHNIQUE: Bone Mineral Density (BMD) measurements of lumbar spine and bilateral hips were obtained. COMPARISON: None. FINDINGS: Lumbar Spine (L1-L4): g/cm2 (1.062) / T-score (0.4) / Z-score (2.3) Findings are suggestive of normal bone density with a low fracture risk. Left Femur Total: g/cm2 (0.914) / T-score (-0.2) / Z-score (1.1) Left Femoral Neck: g/cm2 (0.743) / T-score (-1.0) / Z-score (0.7) Right Femur Total: g/cm2 (0.906) / T-score (-0.3) / Z-score (1.1) Right Femoral Neck: g/cm2 (0.694) / T-score (-1.4) / Z-score (0.3) BD/Dexa Bone Density Study IMPRESSION: The patient is considered osteopenic as outlined below according to World [employer] Organization (WHO) criteria with a low fracture risk. Reference Information: The T-score is the number of standard deviations above or below the standard which is normal for young adults at their peak bone mineral density. The World Health Organization (WHO) interprets the T-scores as follows: Above -1 Normal bone density Between -1 and -2.5 Osteopenia Equal to / or below -2.5 Osteoporosis As a practical clinical guideline, osteopenia may be graded as follows: Mild -1 through -1.5 Moderate -1.6 through -2.0 Severe -2.1 through -2.4 The Z-score is the number of standard deviations above or below age-matched controls. A Z-score of less than -1.5 would be considered abnormal. References: 1. NIH Osteoporosis and Related Bone Diseases www osteo.org 2. International Society for Clinical Densitometry www iscd.org 3. National Osteoporosis Foundation www nof.org Electronically Signed: Mariano Zuniga MD at 15:26 EST ,
== END | disposition home or self-care (01) ==
PROVIDERS: PCP Internal Medicine; Referring Provider Internal Medicine; Visit Provider Internal Medicine
DX: Z78.0 Asymptomatic menopausal state (principal)
CPT/HCPCS: 77080

== ENCOUNTER → 2023-12-01 | Outpatient (CLI) | payer MEDICARE, SELFPAY ==
[2023-12-01 14:52] LABS: Bacteria 0 SEEN /hpf (None Seen); Mucous, Urine 0 SEEN /hpf (<or=2+); Red Blood Cells-Urine 0 SEEN /hpf (0-5); Squamous Epithelial Cells - UA 0 SEEN /hpf (5-10); White Blood Cells 0 SEEN /hpf (0-5)
[2023-12-01 17:04] LABS: Color, Urine Yellow (Yellow); Glucose, Dipstick Normal (Normal); Ketone-Dipstick Negative (Negative); Leukocyte Esterase-Dipstick Negative /ul (Negative); Nitrite-Dipstick Negative (Negative); Occult Blood-Urine Negative /ul (Negative); Protein-Dipstick Negative (Negative); Urine Bilirubin Dipstick Negative (Negative); Urine Clarity Sl. Cloudy (Clear); Urine Urobilinogen Normal (Normal)
[2023-12-01 17:15] LABS: ALB/GLOB Ratio 1.1 RATIO (0.9-2.4); AST(SGOT) 20 U/L (15-37); Alanine Aminotransfer ALT/SGPT 35 U/L (13-56); Albumin, Serum 3.8 g/dL (3.2-5.0); Alkaline Phosphatase 80 U/L (45-117); Anion Gap 5 (5-15); BUN 11 mg/dL (7-18); BUN/Creat Ratio 12.7 RATIO (10-20); Calcium,Total 9.3 mg/dL (8.5-10.1); Chloride 105 mmol/L (98-107); Creatinine, Serum 0.87 mg/dL (0.55-1.02); EST Glomerular Filtration Rate 69 mL/min (>60); Est Glom Filt Rate - Afr Amer 84 mL/min (>60); Globulin 3.4 g/dL (2.2-4.2); Glucose 171 mg/dL (74-106); Lipase 27 U/L (13-75); Potassium 3.3 mmol/L (3.5-5.1); Protein, Total 7.2 g/dL (6.4-8.2); Sodium Level 139 mmol/L (136-145)
[2023-12-01 17:17] LABS: Hemoglobin A1c 6.6 % (3.8-5.6)
== END | disposition home or self-care (01) ==
LOC: BIMLAB 14:51
PROVIDERS: PCP Internal Medicine; Visit Provider Nurse Practitioner
DX: R10.11 Right upper quadrant pain (principal); R73.03 Prediabetes
CPT/HCPCS: 36415; 80053; 81001; 83036; 83690

== ENCOUNTER → 2023-12-08 | Outpatient (CLI) | payer MEDICARE, SELFPAY ==
--- NOTE | 2023-12-08 07:16 | US_ITS ---
INDICATION: Right upper quadrant pain EXAMINATION: Ultrasound US Abdomen Limited (quadrant) TECHNIQUE: Silva scale and color doppler imaging was performed of the right upper quadrant. COMPARISON: No relevant prior comparison study available FINDINGS: LIVER: There is moderate increased echogenicity. The liver measures about 17.5 cm in length. The portal vein is patent with normal hepatopedal flow. No focal hepatic lesion. There is no free fluid. GALLBLADDER AND BILIARY TREE: Multiple gallstones are seen. The gallbladder wall measures about 3 mm. The proximal common bile duct measures 5 mm, which is within normal limits for the patient''s age. Sonographic Busch''s sign: Negative. PANCREAS: No focal abnormality is demonstrated in the pancreas. No pancreatic ductal dilatation. Right kidney: The right kidney measures 4.4 cm in length. The renal cortex measures 1.6 cm. No evidence of hydronephrosis. US/Abdomen Limited IMPRESSION: 1. Multiple gallstones without evidence of biliary dilatation. 2. Fatty infiltration of the liver. Electronically Signed: Pavel Garcia MD at 14:37 EST ,
--- OUTSIDE RECORDS SUMMARY | 2023-12-08 07:18 | XMS RPT_ITS | CCD ---
Author Name Unknown Address [address] [place] [address] Organization [facility] Care Team Providers Care Market Researcher Name Role Phone Sarah Mcgraw MD Primary Care Provider 1(12 [phone]) IRIS SANTACRUZ Attending Unavailable SARAH MCGRAW Primary Care Unavailable SARAH MCGRAW Primary Care Unavailable IRIS SANTACRUZ Referring Unavailable IRIS SANTACRUZ Attending Unavailable SARAH MCGRAW Primary Care Unavailable IRIS SANTACRUZ Referring Unavailable Sarah Mcgraw MD Primary Care Provider 1(12 30) SARAH MCGRAW Primary Care Unav ADÁN Zhu Attending Unava ilSarah Vila MD Primary Care Provider 1(12 30) Allergies Allergy Classification Reported Allergen(s) Allergy Type Date of Onset Reaction(s) Facility (8 sources) atorvastatin; Translations: [ATORVASTATIN CALCIUM] Drug Allergy 5 Other: See Comments [facility] Work Phone: (8 sources) Dust; Translations: [DUST] Allergy to substance 0 Cough [facility] Work Phone: (9 sources) Lisinopril; Translations: [LISINOPRIL] Drug Allergy 0 Cough [facility] Work Phone: (8 sources) Ciprofloxacin; Translations: [CIPROFLOXACIN] Drug Allergy 2 Rash [facility] Work Phone: Medications Completed/Discontinued Medications Medication Drug Class(es) Dates Sig (Normalized) Sig (Original) acyclovir 400 mg oral tablet (7 sources) Herpesvirus Nucleoside Analog DNA Polymerase Inhibitor, Herpes Simplex Virus Nucleoside Analog DNA Polymerase Inhibitor, Herpes Zoster Virus Nucleoside Analog DNA Polymerase Inhibitor acyclovir (ZOVIRAX) 400 mg tablet Take 400 mg by mouth. 0 Active Problems Active Problems Problem Classification Problem Date Documented Da te Episodic/Chronic Allergic reactions (2 sources) Vulval eczema; Translations: [Dermatitis, unspecified] Episodic Disorders of lipid metabolism (7 sources) Hyperlipidemia; Translations: [Hyperlipidemia, unspecified] Onset: 02-04-2016 02-04-2016 Chronic Essential hypertension (7 sources) Essential hypertension; Translations: [Essential (primary) hypertension] Onset: 11-09-2011 09-28-2021 Chronic Genitourinary symptoms and ill-defined conditions (1 source) Genuine stress incontinence; Translations: [Stress incontinence (female) (male)] Chronic Menopausal disorders (2 sources) Atrophic vaginitis; Translations: [Postmenopausal atrophic vaginitis] Chronic Osteoarthritis (7 sources) Osteoarthritis; Translations: [Unspecified osteoarthritis, unspecified site] 07-05-2005 Chronic Other eye disorders (7 sources) Ischemic optic neuropathy of left eye; Translations: [Ischemic optic neuropathy, left eye] Onset: 10-31-2015 09-28-2021 Chronic Other screening for suspected conditions (not mental disorders or infectious disease) (6 sources) Patient encounter status; Translations: [Encounter for screening mammogram for malignant neoplasm of breast] Onset: 02-15-2023 Episodic Residual codes; unclassified (1 source) Menopause present; Translations: [Asymptomatic menopausal state] Episodic Thyroid disorders (14 sources) Non-toxic nodular goiter; Translations: [Nontoxic goiter, unspecified] Onset: 07-31-2015 07-05-2005 Chronic Urinary tract infections (2 sources) Urinary tract infection, site not specified; Translations: [Urinary tract infection, site not specified] Onset: 07-12-2023 Episodic Past or Other Problems Problem Classification Problem Date Documented Da te Episodic/Chronic Other connective tissue disease (7 sources) Calcaneal spur; Translations: [Calcaneal spur, unspecified foot] Onset: 04-25-2009 04-25-2009 Episodic Results Test Name Value Interpretation Reference Range Facil ity Vital Signs Date Time Vital Sign Value Performing Clinician Luis F palacios 03-25-2022 11:00-0400 Body weight 85.73 kg Iris Santacruz APRN.WOUND CARE NURSE Work Phone: [facility] 03-25-2022 11:00-0400 Diastolic blood pressure 70 mm[Hg] Iris Santacruz APRN.WOUND CARE NURSE Work Phone: [facility] 03-25-2022 11:00-0400 Systolic blood pressure 118 mm[Hg] Iris Santacruz APRN.WOUND CARE NURSE Work Phone: [facility] 02-10-2022 14:03-0400 Body height 170.2 cm Iris Santacruz APRN.WOUND CARE NURSE Work Phone: [facility] 02-10-2022 14:03-0400 Body weight 84.91 kg Iris Santacruz APRN.WOUND CARE NURSE Work Phone: [facility] 02-10-2022 14:03-0400 Diastolic blood pressure 80 mm[Hg] Iris Santacruz APRN.WOUND CARE NURSE Work Phone: [facility] 02-10-2022 14:03-0400 Systolic blood pressure 130 mm[Hg] Iris Santacruz APRN.WOUND CARE NURSE Work Phone: [facility] Encounters Encounter Date Encounter Type Care Provider Facility Start: 07-12-2023 End: 07-12-2023 Emergency department patient visit SARAH GUEVARA [facility] Start: 02-15-2023 Documentation procedure Mammog olena Coordinator [facility] Start: 02-15-2023 Letter encounter Mammography Coordinator [facility] Department Start: 02-15-2023 End: 02-15-2023 ambulatory SARAH MCGRAW Facility:[facility] Start: 02-15-2023 End: 02-15-2023 Subsequent hospital visit by physician Screen Mammo [facility] Mammogram Procedures Date Procedure Procedure Detail Performing Clinician Start: 02-15-2023 End: 02-15-2023 Mammography Iris Santacruz APRN.WOUND CARE NURSE Work Phone: Start: 02-10-2022 End: 02-10-2022 Mammography Iris Santacruz APRN.WOUND CARE NURSE Work Phone: Start: 12-05-2020 Mammography Iris de la torre APRN.WOUND CARE NURSE Work Phone: Start: 09-13-2018 Colonoscopy Iris de la torre APRN.CNP Work Phone: Start: 03-22-2016 Adult depression scr eening assessment Iris Santacruz APRN.[facility] Work Phone: Start: 01-24-2016 Lipid 1996 panel - S roger or Plasma Screen Wstr Plan of Treatment Date Care Activity Detail Author Start: 09-13-2028 Colonoscopy COLONOSCOPY [facility] Start: 09-13-2028 COLORECTAL CANCER SCREENING COLORECTAL CANCER SCREENING [facility] Start: 03-22-2026 Urine microalbumin profile [facility] Start: 02-16-2024 Mammography [facility] Start: 06-03-2023 Covid-19 Vaccine () Covid-19 Vaccine () [facility] Start: 06-03-2023 Influenza vaccination [facility] Start: 03-25-2023 BP CONTROLLED (<130/80) BP CONTROLLED (<130/80) [facility] Start: 02-10-2023 Mammography MAMMOGRAM [facility] Start: 10-03-2022 ADVANCE DIRECTIVE DISCUSSION ADVANCE DIRECTIVE DISCUSSION [facility] Start: 10-03-2022 DEPRESSION ASSESSMENT DEPRESSION ASSESSMENT [facility] Start: 12-05-2021 Mammography MAMMOGRAM [facility] Start: 12-01-2021 COVID-19 VACCINE (3 - Booster for Moderna series) COVID-19 VACCINE (3 - Booster for Moderna series) [facility] Start: 10-03-2021 ADVANCE DIRECTIVE DISCUSSION ADVANCE DIRECTIVE DISCUSSION [facility] Start: 08-28-2021 COVID-19 VACCINE (3 - Booster for Moderna series) COVID-19 VACCINE (3 - Booster for Moderna series) [facility] Start: 02-18-2021 BONE DENSITY BONE DENSITY [facility] Start: 02-18-2021 Bone Density Screening Bone Density Screening [facility] Start: 02-18-2021 Pneumococcal Vaccine: 65+ (2 - PPSV23 or PCV20) Pneumococcal Vaccine: 65+ (2 - PPSV23 or PCV20) [facility] Start: 02-18-2021 PNEUMOCOCCAL: 65+ (2 - PPSV23 if available, else PCV20) PNEUMOCOCCAL: 65+ (2 - PPSV23 if available, else PCV20) [facility] Start: 02-18-2021 PNEUMOCOCCAL: 65+ (2 - PPSV23 or PCV20) PNEUMOCOCCAL: 65+ (2 - PPSV23 or PCV20) [facility] Start: 02-18-2021 PNEUMOVAX AGE 65 AND OVER WITH 5YR LOOKBACK (#1) PNEUMOVAX AGE 65 AND OVER WITH 5YR LOOKBACK (#1) [facility] Start: 01-23-2021 Lipid 1996 panel - Serum or Plasma Lipid Screening [facility] Start: 01-23-2021 LIPID SCREEN LIPID SCREEN [facility] Start: 07-13-2019 DIABETES SCREEN DIABETES SCREEN [facility] Start: 07-13-2019 Diabetes Screening Diabetes Screening [facility] Start: 03-22-2017 Adult depression screening assessment DEPRESSION SCREENING [facility] Start: 2016 RSV Vaccine (1 - 1-dose 60+ series) RSV Vaccine (1 - 1-dose 60+ series) [facility] Start: 02-18-2006 SHINGRIX VACCINE (1 of 2) SHINGRIX VACCINE (1 of 2) [facility] Start: 02-18-2001 COLOGUARD (FIT-DNA) COLOGUARD (FIT-DNA) [facility] Start: 02-18-[address] COLONOGRAPHY [facility] Start: 02-18-2001 FECAL OCCULT BLOOD FECAL OCCULT BLOOD [facility] Start: 02-18-2001 SIGMOIDOSCOPY SIGMOIDOSCOPY [facility] Start: 02-18-1974 ANNUAL PCP TEAM CHRONIC DISEASE VISIT ANNUAL PCP TEAM CHRONIC DISEASE VISIT [facility] Start: 02-18-1974 BP CONTROLLED (<130/80) BP CONTROLLED (<130/80) [facility] Start: 02-18-1974 HIV SCREENING HIV SCREENING [facility] End: 03-12-2023 Dxa bone density study 1/> sites axial skel DXA-AXIAL SKELETON Radiology Routine Encounter for screening for osteoporosis Asymptomatic menopausal state 1 Occurrences starting 02/10/2022 until 03/12/2023 [facility] Work Phone: Immunizations Immunization Date Immunization Notes Care Provider Belen galvan 09-02-2021 influenza, injectabl e, quadrivalent, contains preservative Iris Santacruz APRN.CNP Work Phone: [facility] Work Phone: 09-02-2021 influenza virus vaccine, unspecified formulation Screen Wstr [facility] 07-03-2021 COVID-19 vaccine, fu ll dose (MODERNA) Iris Santacruz APRN.[facility] Work Phone: [facility] Work Phone: 05-29-2021 COVID-19 vaccine, fu ll dose (MODERNA) Iris Santacruz APRN.[facility] Work Phone: [facility] Work Phone: 07-13-2016 influenza, injectabl e, quadrivalent, contains preservative Iris Santacruz APRN.[facility] Work Phone: [facility] 07-13-2016 pneumococcal conjuga te vaccine, 13 valent Iris Santacruz APRN.[facility] Work Phone: [facility] 03-22-2016 tetanus toxoid, redu stefany diphtheria toxoid, and acellular pertussis vaccine, adsorbed Iris Santacruz APRN.[facility] Work Phone: [facility] 07-31-2015 influenza, injectabl e, quadrivalent, contains preservative Iris Santacruz APRN.[facility] Work Phone: [facility] 09-03-2004 hepatitis A and hepatitis B vaccine Iris Santacruz APRN.[facility] Work Phone: [facility] Work Phone: 07-30-2004 hepatitis A and hepatitis B vaccine Iris Santacruz APRN.[facility] Work Phone: [facility] Work Phone: 07-30-2004 tetanus and diphther ia toxoids, not adsorbed, for adult use Iris Santacruz APRN.[facility] Work Phone: [facility] Work Phone: Payers Date Payer Category Payer Medicare [id number] 2017 Unknown [employer] BLUE CARD PPO OOS [id number] 2017-Present [phone] [facility] [id number] [place] [address] PPO [id number] 2017 Unknown [id number] 2017 Unknown XANDER YI PPO OOS [id number] 2017-Present [phone] [address] [place] [address] PPO [id number] 1955 Unknown [id number] Social History Date Type Detail Facility Start: 01-18-2017 Tobacco smoking status NHIS Never smoked tobacco [facility] Work Phone: Start: 10-30-2021 End: 02-15-2023 Alcohol intake Current non-drinker of alcohol (finding) [facility] Start: 12-06-2019 History SDOH Social Connections Phone 5 [facility] Start: 12-06-2019 History SDOH Social Connections Get Together 3 [facility] Start: 12-06-2019 History SDOH Social Connections Membership 1 [facility] Start: 12-06-2019 History SDOH Physical Activity DPW 0 [facility] Start: 12-06-2019 History SDOH Stress 2 [facility] Start: 01-18-2017 Tobacco Comment No smoking in childhood or current homes. [facility] Start: 1955 Sex Assigned At Female [facility] Start: 01-01-2022 End: 03-25-2022 Exposure to SARS-CoV-2 (event) Not sure [facility] Start: 01-18-2017 Tobacco use and exposure Smokeless tobacco non-user [facility] Work Phone: Start: 12-06-2019 End: 02-15-2023 History of Social function [facility] Start: 12-06-2019 End: 02-15-2023 Social connection and isolation panel [facility] Do you belong to any clubs or organizations such as latter day groups, unions, fraternal or athletic groups, or school groups? Yes [facility] Are you now , , , , never or living with a partner? [facility] How hard is it for y ou to pay for the very basics like food, housing, medical care, and heating Not hard at all [facility] Do you feel stress - tense, restless, nervous, or anxious, or unable to sleep at night because your mind is troubled all the time - these days [OSQ] Only a little [facility] (I/We) worried wheth er (my/our) food would run out before (I/we) got money to buy more. Never true [facility] Start: 10-29-2021 Gender identity Identifies as female gender (finding) [facility] Start: 10-29-2021 Sexual orientation Heterosexual (finding) [facility] Clinical Notes 05-27-2011 to 02-15-2023 Letter - Mammography Coordinator - 02/15/2023 2:32 PM Aruna Capellan RT(R) - 02/15/2023 8:30 AM Shobha Santacruz APRN.CNP - 03/25/2022 10:54 AM EDTPatient Instructions Note Date & Type Note Facility 02-15-2023 Miscellaneous Notes February 16, 2023 PID: [id number] Ledy Cervantes [address] [place] [address] [address] [place] [address] Dear Ms. Cervantes, We are pleased to inform you that the results of your recent breast imaging exam on 02/15/2023 are normal. Early detection of cancer is very important. We also understand recommendations regarding breast cancer screening are controversial. Please discuss with your primary care provider which strategy is best for you and whether a mammogram is right for you. Your imaging studies and report will be kept on file at [facility] as part of your permanent medical record and are available for your continuing care. Thank you for allowing us to help in meeting your health care needs. Sincerely, Dr. Sommers Interpreting Radiologist [facility] (Normal over 40) documented in this encounter [facility] 02-15-2023 Note HNO ID: [id number] Author: Iris Santacruz APRN.[facility] Service: ? Author Type: Nurse Practitioner Type: Progress Notes Filed: 02/15/2023 10:22 AM Note Text: Gre Instructor offered: Patient declines. Ledy is a 67 year old who presents for an annual gynecologic exam without complaints. Postmenopausal: Yes since age 57 HRT use: No. Vaginal estrogen stopped due to irritation. Using Revaree 2-3 times a week but does have some irritation the day of use. 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 OB History T4 L4 SAB0 IAB0 Ectopic0 Multiple0 Live Births0 Comment: 4 vaginal deliveries Group Director History LMP: 07/12/2011, Postmenopausal Age at Menarche: Age at First : Age at Menopause: Group Director History Comments: Sexual Activity: Yes; Male Contraception: Tubal Ligation PAST MEDICAL HISTORY Diagnosis Date Benign neoplasm of colon COVID-19 in September 2020 per patient Hypertension Osteoarthrosis, unspecified whether generalized or localized, other specified sites Osteoarthritis Other and unspecified hyperlipidemia Sleep apnea Bi Pap Unspecified hypothyroidism Unspecified nontoxic nodular goiter PAST SURGICAL HISTORY Procedure Laterality Date COLONOSCOPY W/BIOPSY SINGLE/MULTIPLE 08/[address] [facility] - 10 yr interval ENDOMETRIAL ABLTJ THERMAL W/O HYSTEROSCOPIC GUID 2012 thermachoice FNA WITH IMAGING 09/08/2010 U/S FNA bilateral thyroid nodules LIG/TRNSXJ FLP TUBE ABDL/VAG APPR UNI/BI REVISE MEDIAN N/CARPAL TUNNEL SURG 08/2020 right hand TONSILLECTOMY PRIMARY/SECONDARY Tonsillectomy FAMILY HISTORY Problem Relation Age of Onset Hypertension Mother Thyroid Mother Hypertension Father Coronary Artery Disease Father cabg,valve replacement Allergies Father Cervical Cancer Sister other (Pancreatic cancer) Other 45 Niece Thyroid Sister Thyroid Sister Cancer Sister Lymphoma. SOCIAL HISTORY Social History Tobacco Use Smoking status: Never Smokeless tobacco: Never Tobacco comments: No smoking in childhood or current homes. Vaping Use Vaping Use: Never used Substance Use Topics Alcohol use: No Drug use: No REVIEW OF SYSTEMS Abdomen: No abdominal pain, nausea, vomiting, diarrhea, or constipation. No bloating, early satiety, indigestion, or increased flatulence. Bladder: No dysuria, gross hematuria, urinary frequency. + stress and urge incontinence- occasional, mostly with coughing and overfull bladder. Breast: No breast lumps, nipple d/c, overlying skin changes, redness or skin retraction Allergies and current medication updated:Yes EXAM: BP 132/82 Ht 5' 6.142 (1.68m) Wt 190 lb 3.2 oz (86.3kg) LMP 07/12/2011 BMI 30.57 kg/(m2). GENERAL: pleasant, female in no apparent distress HEENT: Normocephalic, atraumatic, mucus membranes moist, and no lesions NECK: Supple, full range of motion, no adenopathy, and thyroid normal DERMATOLOGY: Normal, without lesions, non-icteric, and non-hirsute BREAST: soft, non-tender, symmetric, no dominant mass, normal nipple-areolar complex, no lymphadenopathy, and no nipple discharge CHEST: Normal inspiratory effort ABDOMEN: soft, non-tender, and no masses PELVIC: external genitalia normal, normal Bartholin's glands, urethra, [place]'s glands, no vulvar lesions, no cervical lesions, physiologic discharge present, normal appearing perineal body and perianal region. + vagina atrophy BIMANUAL: uterus normal size, shape and consistency, no adnexal masses, and non-tender RECTOVAGINAL: deferred. NEURO: alert and oriented x3,exam grossly non-focal EXTREMITIES: normal ASSESSMENT/PLAN: 1) Health maintenance: Pap/HPV screening no longer needed Mammogram ordered Mammogram up to date Nutrition, exercise and routine health maintenance exams reviewed. Calcium/Vitamin D supplementation information provided. Colon cancer screening: up to date with screening BMD: ordered 2. Mixed incontinence - ICD9: 788.33, ICD10: N39.46 - Tries to do Kegel's not very good at it. Discussed PFT in the future if she desires. 3. Postmenopausal atrophic vaginitis - ICD9: 627.3, ICD10: N95.2 - continue Revaree - can try 1/2 suppository due to irritation 4) Follow up one year or sooner as needed Iris Santacruz APRN.[facility] 02-15-2023 Note HNO ID: [id number] Author: RT Nazanin(R) Service: ? Author Type: Technologist Type: Progress Notes Filed: 02/15/2023 8:16 AM Note Text: Radiology Service Progress Note PATIENT NAME: Ledy Cervantes DATE OF SERVICE: February 15, 2023 TIME: 8:16 AM PATIENT IDENTITY VERIFICATION COMPLETED USING TWO (2) IDENTIFIERS: Name and Date of confirmed by patient verbally. FALL SCREENING: Has the patient had 2 falls in the last year or 1 fall with injury or currently using an Ambulatory Assistive Device (Walker, Cane, Wheelchair, Crutches, etc.)? No PATIENT GENDER DATA: Female. status: : No status: NO. PATIENT RELEVANT IMPLANT DATA REVIEWED: Not Applicable RADIOLOGY DEPARTMENT: Mammography PERIPHERAL IV DATA: Not applicable SIGNED BY: RT Nazanin(R) February 15, 2023 8:16 AM [facility] 02-15-2023 History of Present illness Narrative Radiology Service Progress Note PATIENT NAME: Ledy Cervantes DATE OF SERVICE: February 15, 2023 TIME: 8:16 AM PATIENT IDENTITY VERIFICATION COMPLETED USING TWO (2) IDENTIFIERS: Name and Date of confirmed by patient verbally. FALL SCREENING: Has the patient had 2 falls in the last year or 1 fall with injury or currently using an Ambulatory Assistive Device (Walker, Cane, Wheelchair, Crutches, etc.)? No PATIENT GENDER DATA: Female. status: : No status: NO. PATIENT RELEVANT IMPLANT DATA REVIEWED: Not Applicable RADIOLOGY DEPARTMENT: Mammography PERIPHERAL IV DATA: Not applicable SIGNED BY: RT Nazanin(Александр) February 15, 2023 8:16 AM documented in this encounter [facility] 03-25-2022 Note HNO ID: [id number] Author: Iris Santacruz APRN.WOUND CARE NURSE Service: ? Author Type: Nurse Practitioner Type: Progress Notes Filed: 03/25/2022 11:32 AM Note Text: Ledy Cervantes is a 67 year old female who presents for problem visit Follow-up vulvar dermatitis. HPI: Vulvar symptoms have improved 75% - Using Revaree every 3 days for past month instead of estrogen cream which was causing irritation, using hypoallergenic baby was with oatmeal for washing. Inserts Revaree vaginal suppository at bedtime while laying down but it sometimes pushes back out. Using Lotrisone occasionally. OB History T4 L4 SAB0 IAB0 Ectopic0 Multiple0 Live Births0 Comment: 4 vaginal deliveries Group Director History LMP: 07/12/2011, Postmenopausal Age at Menarche: Age at First : Age at Menopause: Group Director History Comments: Sexual Activity: Yes; Male Contraception: Tubal Ligation PAST MEDICAL HISTORY Diagnosis Date - Benign neoplasm of colon - COVID-19 in September 2020 per patient - Hypertension - Osteoarthrosis, unspecified whether generalized or localized, other specified sites Osteoarthritis - Other and unspecified hyperlipidemia - Sleep apnea Bi Pap - Unspecified hypothyroidism - Unspecified nontoxic nodular goiter PAST SURGICAL HISTORY Procedure Laterality Date - COLONOSCOPY W/BIOPSY SINGLE/MULTIPLE 08/[address] [facility] - 10 yr interval - ENDOMETRIAL ABLTJ THERMAL W/O HYSTEROSCOPIC GUID 2011 thermachoice - FNA WITH IMAGING 09/08/2010 U/S FNA bilateral thyroid nodules - LIG/TRNSXJ FLP TUBE ABDL/VAG APPR UNI/BI - REVISE MEDIAN N/CARPAL TUNNEL SURG 08/2020 right hand - TONSILLECTOMY PRIMARY/SECONDARY Tonsillectomy FAMILY HISTORY Problem Relation Age of Onset - Hypertension Mother - Thyroid Mother - Hypertension Father - Coronary Artery Disease Father cabg,valve replacement - Allergies Father - Cervical Cancer Sister - other (Pancreatic cancer) Other 45 Niece - Thyroid Sister - Thyroid Sister - Cancer Sister Lymphoma. Social History Tobacco Use - Smoking status: Never Smoker - Smokeless tobacco: Never Used - Tobacco comment: No smoking in childhood or current homes. Vaping Use - Vaping Use: Never used Substance Use Topics - Alcohol use: No - Drug use: No Current Outpatient Medications Medication Sig - CRANBERRY ORAL Take by mouth. - glucosam/chond/glycosaminog/C ([id number] GLYCN-C ORAL) Take by mouth. - BIPAP - clotrimazole-betamethasone (LOTRISONE) cream Apply 1 application to affected area twice daily. - amLODIPine (NORVASC) 2.5 mg tablet Take 2.5 mg by mouth once daily. - acyclovir (ZOVIRAX) 400 mg tablet Take 400 mg by mouth. - hydroCHLOROthiazide (HYDRODIURIL, ESIDRIX) 25 mg tablet TK 1 T PO QD - losartan (COZAAR) 100 mg tablet TK 1 T PO QD - Lutein 20 mg cap TK ONE C PO QD - potassium chloride SR (MICRO-K) 10 mEq CR capsule TK ONE C PO QD - levothyroxine (SYNTHROID) 88 mcg tablet Take 1 tablet by mouth once daily. - aspirin, enteric coated (ASPIRIN, ENTERIC COATED) 81 mg EC tablet 81 mg every other day. - rosuvastatin (CRESTOR) 10 mg tablet Take 1 tablet by mouth once daily. - albuterol HFA (VENTOLIN HFA) 90 mcg/actuation inhaler Inhale 2 Puffs as instructed every 4 hours as needed for Wheezing/Shortness of Breath. - Ciclopirox (LOPROX) 8 % solution Apply 1 application to affected area daily at bedtime. - calcium carbonate 600 mg-cholecalciferol 400 units 600 mg(1,500mg) -400 unit tab Take 1 tablet by mouth once daily. - multivitamin (MULTIPLE VITAMINS) tablet Take 1 tablet by mouth once daily. - fluconazole (DIFLUCAN) 150 mg tablet Take 1 tablet by mouth as directed. Take first pill today and repeat in 72 hours. (Patient not taking: Reported on 03/25/2022 ) - estradiol (ESTRACE) 0.01 % (0.1 mg/gram) vaginal cream Use 1 g vaginally two times a week. 1 applicator full at bedtime x 14 nights then twice a week (Patient not taking: Reported on 03/25/2022 ) - loratadine (CLARITIN) 10 mg tablet Take 10 mg by mouth once daily. (Patient not taking: Reported on 03/25/2022 ) - potassium chloride (Patient not taking: Reported on 03/25/2022 ) - Ciclopirox (PENLAC) 8 % solution Apply 1 application to affected area twice daily. TO AFFECTED AREA. (Patient not taking: Reported on 03/25/2022 ) - naproxen (NAPROSYN) 500 mg tablet Take 1 tablet by mouth twice daily as needed (for pain/inflammation). Take with food. (Patient not taking: Reported on 03/25/2022 ) - lutein 20 mg tab Take by mouth. (Patient not taking: Reported on 03/25/2022 ) No current facility-administered medications for this visit. Allergies As of Date: 03/25/2022 Allergen Noted Reaction DUST 08/14/2020 Cough LIPITOR [ATORVASTATIN CALCIUM] 07/31/2015 Other: See Comments LISINOPRIL 10/06/2019 Cough CIPROFLOXACIN 10/16/2021 Rash Fully Assessed 03/25/2022 REVIEW OF SYSTEMS Allergies and current medication updated:Yes EXA (more content not included)... [facility] 03-25-2022 History of Present illness Narrative Ledy Cervantes is a 67 year old female who presents for problem visit Follow-up vulvar dermatitis. HPI: Vulvar symptoms have improved 75% - Using Revaree every 3 days for past month instead of estrogen cream which was causing irritation, using hypoallergenic baby was with oatmeal for washing. Inserts Revaree vaginal suppository at bedtime while laying down but it sometimes pushes back out. Using Lotrisone occasionally. OB History T4 L4 SAB0 IAB0 Ectopic0 Multiple0 Live Births0 Comment: 4 vaginal deliveries Group Director History LMP: 07/12/2011, Postmenopausal Age at Menarche: Age at First : Age at Menopause: Group Director History Comments: Sexual Activity: Yes; Male Contraception: Tubal Ligation PAST MEDICAL HISTORY Diagnosis Date Benign neoplasm of colon COVID-19 in September 2020 per patient Hypertension Osteoarthrosis, unspecified whether generalized or localized, other specified sites Osteoarthritis Other and unspecified hyperlipidemia Sleep apnea Bi Pap Unspecified hypothyroidism Unspecified nontoxic nodular goiter PAST SURGICAL HISTORY Procedure Laterality Date COLONOSCOPY W/BIOPSY SINGLE/MULTIPLE 08/[address] [facility] - 10 yr interval ENDOMETRIAL ABLTJ THERMAL W/O HYSTEROSCOPIC GUID 2011 thermachoice FNA WITH IMAGING 09/08/2010 U/S FNA bilateral thyroid nodules LIG/TRNSXJ FLP TUBE ABDL/VAG APPR UNI/BI REVISE MEDIAN N/CARPAL TUNNEL SURG 08/2020 right hand TONSILLECTOMY PRIMARY/SECONDARY <AGE 13 Tonsillectomy FAMILY HISTORY Problem Relation Age of Onset Hypertension Mother Thyroid Mother Hypertension Father Coronary Artery Disease Father cabg,valve replacement Allergies Father Cervical Cancer Sister other (Pancreatic cancer) Other 45 Niece Thyroid Sister Thyroid Sister Cancer Sister Lymphoma. Social History Tobacco Use Smoking status: Never Smoker Smokeless tobacco: Never Used Tobacco comment: No smoking in childhood or current homes. Vaping Use Vaping Use: Never used Substance Use Topics Alcohol use: No Drug use: No Current Outpatient Medications Medication Sig CRANBERRY ORAL Take by mouth. glucosam/chond/glycosaminog/C (VBTPIYMW-VKGOZIASDD-CK GLYCN-C ORAL) Take by mouth. BIPAP clotrimazole-betamethasone (LOTRISONE) cream Apply 1 application to affected area twice daily. amLODIPine (NORVASC) 2.5 mg tablet Take 2.5 mg by mouth once daily. acyclovir (ZOVIRAX) 400 mg tablet Take 400 mg by mouth. hydroCHLOROthiazide (HYDRODIURIL, ESIDRIX) 25 mg tablet TK 1 T PO QD losartan (COZAAR) 100 mg tablet TK 1 T PO QD Lutein 20 mg cap TK ONE C PO QD potassium chloride SR (MICRO-K) 10 mEq CR capsule TK ONE C PO QD levothyroxine (SYNTHROID) 88 mcg tablet Take 1 tablet by mouth once daily. aspirin, enteric coated (ASPIRIN, ENTERIC COATED) 81 mg EC tablet 81 mg every other day. rosuvastatin (CRESTOR) 10 mg tablet Take 1 tablet by mouth once daily. albuterol HFA (VENTOLIN HFA) 90 mcg/actuation inhaler Inhale 2 Puffs as instructed every 4 hours as needed for Wheezing/Shortness of Breath. Ciclopirox (LOPROX) 8 % solution Apply 1 application to affected area daily at bedtime. calcium carbonate 600 mg-cholecalciferol 400 units 600 mg(1,500mg) -400 unit tab Take 1 tablet by mouth once daily. multivitamin (MULTIPLE VITAMINS) tablet Take 1 tablet by mouth once daily. fluconazole (DIFLUCAN) 150 mg tablet Take 1 tablet by mouth as directed. Take first pill today and repeat in 72 hours. (Patient not taking: Reported on 03/25/2022 ) estradiol (ESTRACE) 0.01 % (0.1 mg/gram) vaginal cream Use 1 g vaginally two times a week. 1 applicator full at bedtime x 14 nights then twice a week (Patient not taking: Reported on 03/25/2022 ) loratadine (CLARITIN) 10 mg tablet Take 10 mg by mouth once daily. (Patient not taking: Reported on 03/25/2022 ) potassium chloride (Patient not taking: Reported on 03/25/2022 ) Ciclopirox (PENLAC) 8 % solution Apply 1 application to affected area twice daily. TO AFFECTED AREA. (Patient not taking: Reported on 03/25/2022 ) naproxen (NAPROSYN) 500 mg tablet Take 1 tablet by mouth twice daily as needed (for pain/inflammation). Take with food. (Patient not taking: Reported on 03/25/2022 ) lutein 20 mg tab Take by mouth. (Patient not taking: Reported on 03/25/2022 ) No current facility-administered medications for this visit. Allergies As of Date: 03/25/2022 Allergen Noted Reaction DUST 08/14/2020 Cough LIPITOR [ATORVASTATIN CALCIUM] 07/31/2015 Other: See Comments LISINOPRIL 10/06/2019 Cough CIPROFLOXACIN 10/16/2021 Rash Fully Assessed 03/25/2022 REVIEW OF SYSTEMS Allergies and current medication updated:Yes EXAM: BP 118/70 Wt 189 lb (85.7kg) LMP 07/12/2011 GENERAL: pleasant, female in no apparent distress CHEST: Normal inspiratory effort PELVIC: external genitalia normal, normal Bartholin's glands, urethra, [place]'s glands, no vulvar lesions, no cervical lesions, physiologic discharge present, normal appearing perineal body and perianal region. Minimal erythema to vulva and fourchette, no edema. NEURO: alert and oriented x3,exam grossly non-focal ASSESSMENT/PLAN: 1. Vulvar dermatitis - ICD9: 692.9, ICD10: L30.9 (primary diagnosis) - Significant improvement - Continue Revaree three times a week. Will try inserting with tampon applicator. - Vulvar hygiene instructions 2. Postmenopausal atrophic vaginitis - ICD9: 627.3, ICD10: N95.2 - Continue Revaree. Follow-up as needed and at annual exam. Iris Santacruz APRN.CNP I spent a total of 20 minutes on the date of the service which included preparing to see the patient, [id number] patient care, completing clinical documentation, obtaining and/or reviewing separately obtained history, performing a medically appropriate examination and counseling and educating the patient/family/caregiver. documented in this encounter [facility] 02-10-2022 Miscellaneous Notes February 10, 2022 PID: [id number] Ledy Cervantes [address] [place] [address] Dear Ms. Cervantes, We are pleased to inform you that the results of your recent breast imaging exam on 02/10/2022 are normal. Early detection of cancer is very important. We also understand recommendations regarding breast cancer screening are controversial. Please discuss with your primary care provider which strategy is best for you and whether a mammogram is right for you. Your imaging studies and report will be kept on file at [facility] as part of your permanent medical record and are available for your continuing care. Thank you for allowing us to help in meeting your health care needs. Sincerely, Dr. Fatima Interpreting Radiologist [facility] (Normal over 40) documented in this encounter [facility] 02-10-2022 Instructions Iris Santacruz APRN.CNP - 02/10/2022 2:17 PM EDT Minimize use of incontinence pad. Wash, dry carefully and apply Aquaphor to protect the skin. Revaree - one vaginal suppository every 2-3 days documented in this encounter [facility] 02-10-2022 History of Present illness Narrative Ledy is a 66 year old who presents for an annual gynecologic exam without complaints. Postmenopausal: Yes since age 57 HRT use: No. Vaginal estrogen -does not always use regularly. Did not use on vacation in January and has had some increase in vaginal irritation. Notices burning after using vaginal estrogen - sometimes uses Lotrisone cream, which is helpful, but tries not to use it very often. Last Pap: 2020 normal HPV: 2020 negative History of abnormal pap: No Last mammogram: today, pending History of abnormal mammogram: No Sexually active: Yes, occasionally Time with current partner: senior care Pain with intercourse: No Postcoital bleeding: No Hot flashes: No Night sweats: No Documentation from previous visit of 12/05/2020 was copied and pasted, documentation has been reviewed and edited as necessary for today's visit. OB History T4 L4 SAB0 IAB0 Ectopic0 Multiple0 Live Births0 Comment: 4 vaginal deliveries Group Director History LMP: 07/12/2011, Postmenopausal Age at Menarche: Age at First : Age at Menopause: Group Director History Comments: Sexual Activity: Yes; Male Contraception: Tubal Ligation PAST MEDICAL HISTORY Diagnosis Date Benign neoplasm of colon COVID-19 in September 2020 per patient Hypertension Osteoarthrosis, unspecified whether generalized or localized, other specified sites Osteoarthritis Other and unspecified hyperlipidemia Sleep apnea Bi Pap Unspecified hypothyroidism Unspecified nontoxic nodular goiter PAST SURGICAL HISTORY Procedure Laterality Date COLONOSCOPY W/BIOPSY SINGLE/MULTIPLE 08/[address] [facility] - 10 yr interval ENDOMETRIAL ABLTJ THERMAL W/O HYSTEROSCOPIC GUID 2012 thermachoice FNA WITH IMAGING 09/08/2010 U/S FNA bilateral thyroid nodules LIG/TRNSXJ FLP TUBE ABDL/VAG APPR UNI/BI REVISE MEDIAN N/CARPAL TUNNEL SURG 08/2020 right hand TONSILLECTOMY PRIMARY/SECONDARY <AGE 13 Tonsillectomy FAMILY HISTORY Problem Relation Age of Onset Hypertension Mother Thyroid Mother Hypertension Father Coronary Artery Disease Father cabg,valve replacement Allergies Father Cervical Cancer Sister other (Pancreatic cancer) Other 45 Niece Thyroid Sister Thyroid Sister Cancer Sister Lymphoma. SOCIAL HISTORY Social History Tobacco Use Smoking status: Never Smoker Smokeless tobacco: Never Used Tobacco comment: No smoking in childhood or current homes. Vaping Use Vaping Use: Never used Substance Use Topics Alcohol use: No Drug use: No REVIEW OF SYSTEMS Abdomen: No abdominal pain, nausea, vomiting, diarrhea, or constipation. No bloating, early satiety, indigestion, or increased flatulence. Bladder: No dysuria, gross hematuria, urinary frequency, urinary urgency. Has stress incontinence with coughing due to allergies - wears Poise pad during daytime. Breast: No breast lumps, nipple d/c, overlying skin changes, redness or skin retraction Allergies and current medication updated:Yes EXAM: BP 130/80 Ht 5' 7 (1.70m) Wt 187 lb 3.2 oz (84.9kg) LMP 07/12/2011 BMI 29.31 kg/(m^2). GENERAL: pleasant, female in no apparent distress [...] external genitalia normal, normal Bartholin's glands, urethra, [place]'s glands, no vulvar lesions, no cervical lesions, physiologic discharge present, normal appearing perineal body and perianal region, + vaginal atrophy, inner vulva and fourchette erythematous and irritated. BIMANUAL: uterus normal size, shape and consistency, no adnexal masses and non-tender RECTOVAGINAL: deferred. NEURO: alert and oriented x3,exam grossly non-focal EXTREMITIES: normal ASSESSMENT/PLAN: 1) Health maintenance: Pap/HPV screening no longer needed Mammogram ordered Mammogram up to date Nutrition, exercise and routine health maintenance exams reviewed. Calcium/Vitamin D supplementation information provided. Colon cancer screening: up to date with screening BMD: ordered 2. Postmenopausal atrophic vaginitis - ICD9: 627.3, ICD10: N95.2 - discontinue vaginal estrogen for now - Lotrisone as needed - Begin Revaree 1 vaginal suppository every 2-3 days 3. Stress incontinence - ICD9: [id number], ICD10: N39.3 - with coughing during allergy season - Minimize use of incontinence pads. Wash, dry carefully and apply Aquaphor to protect the skin. 4. Vulvar dermatitis - ICD9: 692.9, ICD10: L30.9 - Minimize use of incontinence pads. Wash, dry carefully and apply Aquaphor to protect the skin. - If not improved at follow-up, plan vulvar biopsy 2) Follow up one year or sooner as needed Iris Santacruz APRN.CAYDEN documented in this encounter [facility] 02-10-2022 History of Present illness Narrative Radiology Service Progress Note PATIENT NAME: Ledy Cervantes DATE OF SERVICE: February 10, 2022 TIME: 1:29 PM PATIENT IDENTITY VERIFICATION COMPLETED USING TWO (2) IDENTIFIERS: Name and Date of confirmed by patient verbally. FALL SCREENING: Has the patient had 2 falls in the last year or 1 fall with injury or currently using an Ambulatory Assistive Device (Walker, Cane, Wheelchair, Crutches, etc.)? No PATIENT GENDER DATA: Female. status: : No status: NO. PATIENT RELEVANT IMPLANT DATA REVIEWED: Not Applicable RADIOLOGY DEPARTMENT: Mammography PERIPHERAL IV DATA: Not applicable SIGNED BY: RT Adryan(R) February 10, 2022 1:29 PM documented in this encounter [facility] 01-12-2022 Miscellaneous Notes [facility] staff, would you please contact pt and assist in scheduling her mammogram if possible, the same day of her yearly exam. Laina Lomax LPN See pended order below, pt has yearly exam scheduled and would like to have her mammogram done the same day. Please contact pt after order is signed. Laina Lomax LPN documented in this encounter [facility] documented as of this encounter (statuses as of 01/12/2022) [facility] History of Past illness Narrative* Problem Noted Date Resolved Date Ovarian cystic mass 05/27/2011 07/09/2011 Endometrial thickening on ultra sound 05/27/2011 07/09/2011 Menorrhagia 05/27/2011 08/26/2017 Hyperlipidemia 04/04/2008 02/04/2016 Hypothyroidism 07/31/2015 documented as of this encounter (statuses as of 02/10/2022) [facility] History of Past illness Narrative* Problem Noted Date Resolved Date Ovarian cystic mass 05/27/2011 07/09/2011 Endometrial thickening on ultra sound 05/27/2011 07/09/2011 Menorrhagia 05/27/2011 08/26/2017 Hyperlipidemia 04/04/2008 02/04/2016 Hypothyroidism 07/31/2015 documented as of this encounter (statuses as of 02/11/2022) [facility] History of Past illness Narrative* Problem Noted Date Resolved Date Ovarian cystic mass 05/27/2011 07/09/2011 Endometrial thickening on ultra sound 05/27/2011 07/09/2011 Menorrhagia 05/27/2011 08/26/2017 Hyperlipidemia 04/04/2008 02/04/2016 Hypothyroidism 07/31/2015 documented as of this encounter (statuses as of 02/12/2022) [facility] History of Past illness Narrative* Problem Noted Date Resolved Date Ovarian cystic mass 05/27/2011 07/09/2011 Endometrial thickening on ultra sound 05/27/2011 07/09/2011 Menorrhagia 05/27/2011 08/26/2017 Hyperlipidemia 04/04/2008 02/04/2016 Hypothyroidism 07/31/2015 documented as of this encounter (statuses as of 03/25/2022) [facility] History of Past illness Narrative* Problem Noted Date Resolved Date Ovarian cystic mass 05/27/2011 07/09/2011 Endometrial thickening on ultra sound 05/27/2011 07/09/2011 Menorrhagia 05/27/2011 08/26/2017 Hyperlipidemia 04/04/2008 02/04/2016 Hypothyroidism 07/31/2015 documented as of this encounter (statuses as of 02/17/2023) [facility] History of Past illness Narrative* Problem Noted Date Diagnosed Date Resolved Date Ovarian cystic mass 05/27/2011 07/09/20 11 Endometrial thickening on ultra sound 05/27/2011 07/09/2011 Menorrhagia 05/27/2011 08/26/2017 Hyperlipidemia 04/04/2008 02/04/2016 Hypothyroidism 07/31/2015 documented as of this encounter (statuses as of 08/07/2023) [facility] Diagnosis Encounter for screening mammogram for malignant neoplasm of breast- Primary Other screening mammogram [facility] Diagnosis Encounter for gynecological examination with abnormal finding- Primary Routine gynecological examination Postmenopausal atrophic vaginitis Stress incontinence Female stress incontinence Encounter for screening mammogram for breast cancer Encounter for screening for osteoporosis Special screening for osteoporosis Asymptomatic menopausal state Asymptomatic postmenopausal status (age-related) (natural) Vulvar dermatitis Other inflammatory disease of cervix, vagina and vulva [facility]counter for screening mammogram for malignant neoplasm of breast Other screening mammogram [facility] Diagnosis Vulvar dermatitis- Primary Other inflammatory disease of cervix, vagina and vulva Postmenopausal atrophic vaginitis [facility] Diagnosis Encounter for screening mammogram for breast cancer documented in this encounter [facility] for referral (narrative)* Diagnostic Procedure Only (Routine) - Pending Review Specialty Diagnoses / Procedures Referred By Harper ingram Referred To Contact [facility] Diagnoses Encounter for screening mammogram for malignant neoplasm of breast Procedures ASIA SCREENING SCREENING MAMMOGRAPHY BI 2-VIEW BREAST INC Iris Poloe APRN.CNP [address] [place] [address] [facility] [address] [place] [address] Referral ID Status Reason Start Date Expiration Date Visits Requested Visits Authorized [id number] Pending Review Auto-Generat ed Referral 01/12/2022 02/10/2023 1 1 [facility] for referral (narrative)* Diagnostic Procedure Only (Routine) - Pending Review Specialty Diagnoses / Procedures Referred By Harper ingram Referred To Contact [facility] Diagnoses Encounter for screening mammogram for breast cancer Procedures ASIA SCREENING SCREENING MAMMOGRAPHY BI 2-VIEW BREAST INC Iris Poole APRN.CNP [address] [place] [address] [facility] [address] [place] [address] Referral ID Status Reason Start Date Expiration Date Visits Requested Visits Authorized [id number] Pending Review Auto-Generat ed Referral 02/10/2022 03/12/2023 1 1 [facility] for referral (narrative)* Diagnostic Procedure Only (Routine) - Closed Specialty Diagnoses / Procedures Referred By Harper t Referred To Contact [facility] Diagnoses Encounter for screening mammogram for malignant neoplasm of breast Procedures ASIA SCREENING SCREENING MAMMOGRAPHY BI 2-VIEW BREAST INC Iris Poole APRN.WOUND CARE NURSE [address] [place] [address] [facility] [address] [place] [address] Referral ID Status Reason Start Date Expiration Date V isits Requested Visits Authorized [id number] Closed Auto-Generate d Referral 01/12/2022 02/10/2023 1 1 [facility] for referral (narrative)* Diagnostic Procedure Only (Routine) - Closed Specialty Diagnoses / Procedures Referred By Contac t Referred To Contact [facility] Diagnoses Encounter for screening mammogram for breast cancer Procedures ASIA SCREENING SCREENING MAMMOGRAPHY BI 2-VIEW BREAST INC Iris Poole APRN.WOUND CARE NURSE [address] [place] [address] [facility] [address] [place] [address] Referral ID Status Reason Start Date Expiration Date V isits Requested Visits Authorized [id number] Closed Auto-Generate d Referral 02/10/2022 03/12/2023 1 1 [facility] for visit Narrative* Diagnostic Procedure Only (Routine) - Closed Specialty Diagnoses / Procedures Referred By Contac t Referred To Contact [facility] Diagnoses Encounter for screening mammogram for malignant neoplasm of breast Procedures ASIA SCREENING SCREENING MAMMOGRAPHY BI 2-VIEW BREAST INC Iris Poole APRN.WOUND CARE NURSE [address] [place] [address] [facility] [address] [place] [address] Referral ID Status Reason Start Date Expiration Date V isits Requested Visits Authorized [id number] Closed Auto-Generate d Referral 01/12/2022 02/10/2023 1 1 [facility] for visit Narrative* Diagnostic Procedure Only (Routine) - Closed Specialty Diagnoses / Procedures Referred By Contac t Referred To Contact [facility] Diagnoses Encounter for screening mammogram for breast cancer Procedures ASIA SCREENING SCREENING MAMMOGRAPHY BI 2-VIEW BREAST INC CAD Iris Santacruz APRN.WOUND CARE NURSE [address] [place] [address] [facility] [address] [place] [address] Referral ID Status Reason Start Date Expiration Date V isits Requested Visits Authorized [id number] Closed Auto-Generate d Referral 02/10/2022 03/12/2023 1 1 [facility] Summary Purpose Family History No Family History Records FoundNo Family History Records Found Advance Directives No Advanced Directives Records FoundNo Advanced Directives Records Found Additional Source Comments Source Comments (unrecognize d section and content) In the event this informatio n is protected by the Federal Confidentiality of Alcohol and Drug Abuse Patient Records regulations: The Federal rules restrict any use of the information to criminally investigate or prosecute any alcohol or drug abuse patient.[facility] the event this information is protected by the Federal Confidentiality of Alcohol and Drug Abuse Patient Records regulations: The Federal rules restrict any use of the information to criminally investigate or prosecute any alcohol or drug abuse patient.[facility] the event this information is protected by the Federal Confidentiality of Alcohol and Drug Abuse Patient Records regulations: The Federal rules restrict any use of the information to criminally investigate or prosecute any alcohol or drug abuse patient.[facility] the event this information is protected by the Federal Confidentiality of Alcohol and Drug Abuse Patient Records regulations: The Federal rules restrict any use of the information to criminally investigate or prosecute any alcohol or drug abuse patient.[facility] the event this information is protected by the Federal Confidentiality of Alcohol and Drug Abuse Patient Records regulations: The Federal rules restrict any use of the information to criminally investigate or prosecute any alcohol or drug abuse patient.[facility] the event this information is protected by the Federal Confidentiality of Alcohol and Drug Abuse Patient Records regulations: The Federal rules restrict any use of the information to criminally investigate or prosecute any alcohol or drug abuse patient.[facility] the event this information is protected by the Federal Confidentiality of Alcohol and Drug Abuse Patient Records regulations: The Federal rules restrict any use of the information to criminally investigate or prosecute any alcohol or drug abuse patient.[facility] Reason for Visit (unrecogniz ed section and content) Reason Comments Well Woman Reason Comments Follow Up Care Teams (unrecognized sec tion and content) Market Researcher Relationship Specialty Start Date End Date Sarah Mcgraw MD [address] [place] [address] PCP - General Internal Medicine 11/20/20 Market Researcher Relationship Specialty Start Date End Date Sarah Mcgraw MD [address] [place] [address] PCP - General Internal Medicine 11/20/20 Market Researcher Relationship Specialty Start Date End Date Sarah Mcgraw MD [address] [place] [address] PCP - General Internal Medicine 11/20/20 Market Researcher Relationship Specialty Start Date End Date Sarah Mcgraw MD [address] [place] [address] PCP - General Internal Medicine 11/20/20 Market Researcher Relationship Specialty Start Date End Date Sarah Mcgraw MD [address] [place] [address] PCP - General Internal Medicine 11/20/20 Market Researcher Relationship Specialty Start Date End Date Sarah Mcgraw MD [address] [place] [address] PCP - General Internal Medicine 11/20/20 INFORMATION SOURCE (unrecogn ized section and content) DATE CREATED AUTHOR AUTHOR'S KRYSTAL WATERMAN 07/18/2023 [facility] REC[facility]DS PERTAINING TO PATIENTS WHO ARE OR HAVE BEEN ENROLLED IN A CHEMICAL DEPENDENCY/SUBSTANCEABUSE PROGRAM, SOME INFORMATION MAY BE OMITTED. This clinical summary was aggregated from multiple sources. Caution should be exercised in using it in the provision of clinical care. This summary normalizes information from multiple sources, and as a consequence, information in this document may materially change the coding, format and clinical context of patient data. In addition, data may be omitted in some cases. CLINICAL DECISIONS SHOULD BE BASED ON THE PRIMARY CLINICAL RECORDS. [facility]. provides no warranty or guarantee of the accuracy or completeness of information in this document.
== END | disposition home or self-care (01) ==
LOC: US 07:15
PROVIDERS: PCP Internal Medicine; Referring Provider Nurse Practitioner; Visit Provider Nurse Practitioner
DX: R10.11 Right upper quadrant pain (principal)
CPT/HCPCS: 76705

== ENCOUNTER 2023-12-22 11:58 | Day surgery (SDC) | payer MEDICARE, SELFPAY ==
[2023-12-22] VITALS (7 sets, daily range): BP systolic 111–143; BP diastolic 69–81; PULSE 75–113; RESP 16–18; TEMP 36.2–36.6; O2SAT 97–99; BMI 30.9
[2023-12-22] MEDS: Lactated Ringers 1,000 ML 15 ML IV (12:27)
--- NOTE | 2023-12-22 13:00 | EGD_PTH ---
PATIENT: ROSELIA CERVANTES LOC: EN U#:[id number] AGE/SX: 68/F ROOM: RE12/22/[address]: Dr. Cesar Reeves MD : 1955 BED: DIS: 12/22/2023 SPEC #: [id number] RECD: 12/22/23 16:09 STATUS: AG CARMICHAEL #: [id number] JIMBO: 12/22/23 13:[address]: Cesar Reeves DEPT: SURGICAL PATHOLOGY RECD BY: Daylin Bar ENTERED: 12/23/23 08:45 SP TYPE: EGD BIOPSY OT DR: Dr. Sarah Mcgraw MD Tissues: A - Duodenum, NOS B - Duodenum, NOS C - Gastric mucous membrane D - Stomach, NOS E - Gastric mucous membrane F - Stomach, NOS G - Gastric fundus H - Esophagus, NOS Procedures: Surgery Specimen Level II Surgery Specimen Level IV Alcian Blue/PAS (control) HEADER OPERATION: EGD with biopsy, polypectomy, bipolar probe hemostasis PRE-OP DIAGNOSIS: Right upper quadrant discomfort, Gallstones TISSUE SUBMITTED: A- Duodenal mucosa biopsy, B-Duodenal bulb mucosa, C-Gastric antrum biopsy, D- Greater curvature/ gastric body mucosa biopsy, E- Gastric body polyps, F- Gastric lesser curvature polyp biopsy, G- Fundal polyp biopsy, H- Gastroesophageal junction biopsy MICROSCOPIC DIAGNOSIS A. Duodenum mucosa, biopsy; A fragment of duodenum mucosa with submucosal lymphangiectasia. B. Duodenal bulb mucosa, biopsy; Fragments of duodenal mucosa, no pathologic diagnosis. C. Gastric antrum, biopsy; Mild gastritis. See microscopic description and comment. D. Greater curvature/ gastric body mucosa, biopsy; Minimal gastritis. See microscopic description. E. Gastric body polyps, biopsy; Fragments of fundic gland polyp. F. Gastric lesser curvature polyp, biopsy; Fragments of fundic gland polyp. G. Fundal polyp, biopsy; Fragments of fundic gland polyp. H. Gastroesophageal junction, biopsy; Fragments of gastroesophageal mucosa with chronic inflammation. Intestinal metaplasia (goblet cell metaplasia) not identified. See comment. DARLENE/mr 12/26/2023 COMMENT C. The results of immunohistochemistry for Helicobacter pylori will be reported separately ([id number]). H. Alcian blue/PAS stain with matched control is used in the evaluation of the specimen. MICROSCOPIC DESCRIPTION Slides are reviewed. C. The specimen shows fragments of gastric mucosa with chronic inflammatory cell infiltrates in the lamina propria consisting of lymphocytes and plasma cells, consistent with mild chronic gastritis. D. The specimen shows fragments of gastric mucosa with chronic inflammatory cell infiltrates in the lamina propria consisting of lymphocytes and plasma cells, consistent with minimal chronic gastritis. . GROSS DESCRIPTION A. Received in fixative is one container labeled with the patient's name and designated Duodenal mucosa biopsy. The specimen consists of one irregular fragment of light madden soft tissue that measures 0.3 x 0.3 x 0.1 cm. The specimen is totally submitted in one cassette. B. Received in fixative is one container labeled with the patient's name and designated Duodenal bulb mucosa biopsy. The specimen consists of two irregular fragments of light madden soft tissue that in aggregate measure 0.4 x 0.2 x 0.1 cm. The specimen is totally submitted in one cassette. C. Received in fixative is one container labeled with the patient's name and designated Gastric antrum. The specimen consists of multiple irregular fragments of light madden soft tissue that in aggregate measure 0.6 x 0.2 x 0.1 cm. The specimen is totally submitted in one cassette. D. Received in fixative is one container labeled with the patient's name and designated Greater curvature gastric body. The specimen consists of two irregular fragments of light madden soft tissue that in aggregate measure 0.5 x 0.3 x 0.1 cm. The specimen is totally submitted in one cassette. E. Received in fixative is one container labeled with the patient's name and designated Gastric polyps-body biopsy. The specimen consists of multiple irregular fragments of light madden soft tissue that in aggregate measure 1.5 x 0.5 x 0.1 cm. The specimen is totally submitted in one cassette. F. Received in fixative is one container labeled with the patient's name and designated Gastric lesser curvature. The specimen consists of multiple irregular fragments of light madden soft tissue that in aggregate measure 1.0 x 0.3 x 0.1 cm. The specimen is totally submitted in one cassette. G. Received in fixative is one container labeled with the patient's name and designated Fundal polyp biopsy. The specimen consists of multiple irregular fragments of light madden soft tissue that in aggregate measure 1.0 x 0.5 x 0.1 cm. The specimen is totally submitted in one cassette. H. Received in fixative is one container labeled with the patient's name and designated GE junction biopsy. The specimen consists of multiple irregular fragment of light madden soft tissue that in aggregate measure 0.4 x 0.3 x 0.1 cm. The specimen is totally submitted in one cassette. Gold 12/23/2023 TC:3 CPT: 50101S4, 37895
--- NOTE | 2023-12-22 13:00 | IMM_PTH ---
PATIENT: ROSELIA CERVANTES LOC: EN U#:[id number] AGE/SX: 68/F ROOM: RE12/22/[address]: Dr. Cesar Reeves MD : 1955 BED: DIS: 12/22/2023 SPEC #: [id number] RECD: 12/23/23 08:58 STATUS: AG RESarbjit #: [id number] JIMBO: 12/22/23 13:[address]: Cesar Reeves DEPT: IMMUNOHISTOCHEMISTRY RECD BY: Mike Silva ENTERED: 12/23/23 08:59 SP TYPE: IMMUNO OTHR DR: Dr. Sarah Mcgraw MD Tissues: C - Stomach, NOS Procedures: H Pylori (initial) PHYSICIAN & INSTITUTION [place] [address] SPECIMEN INFORMATION: Tissue Source: Gastric antrum biopsy Clinical Info: Right upper quadrant, Gallstones Specimen Number: [id number] CPT code: 41688 METHODOLOGY: Deparaffinized sections of prefer/formalin-fixed tissue or PAP/DQ stained slides are incubated with monoclonal/polyclonal antibodies/oligonucleotide probes. Localization is made via biotin free immunoperoxidase method. Appropriate controls are performed and reacted as expected. Results on target cell population are indicated in the following table: RESULTS: ANTIBODY / CLONE RESULT Block C H Pylori (polyclonal) negative These tests were developed and their performance characteristics determined by [facility]. They may not have been cleared or approved by the U.S. Food and Drug Administration. The FDA has determined that such clearance or approval is not necessary. The above immunohistochemical/dualISH markers are ordered and reviewed by the Pathologist. INTERPRETATION: C. Gastric antrum , biopsy; Negative for Helicobacter pylori organisms. DARLENE/ 12/26/2023
--- NOTE | 2023-12-22 13:00 | IMM_PTH ---
PATIENT: ROSELIA CERVANTES LOC: EN U#:[id number] AGE/SX: 68/F ROOM: RE12/22/[address]: Dr. Cesar Reeves MD : 1955 BED: DIS: 12/22/2023 SPEC #: [id number] RECD: 12/23/23 08:58 STATUS: AG RESarbjit #: [id number] JIMBO: 12/22/23 13:[address]: Cesar Reeves DEPT: IMMUNOHISTOCHEMISTRY RECD BY: Mike Silva ENTERED: 12/23/23 08:59 SP TYPE: IMMUNO OTHR DR: Dr. Sarah Mcgraw MD Tissues: C - Stomach, NOS Procedures: H Pylori (initial) PHYSICIAN & INSTITUTION [place] [address] SPECIMEN INFORMATION: Tissue Source: Gastric antrum biopsy Clinical Info: Right upper quadrant, Gallstones Specimen Number: [id number] CPT code: 51087 METHODOLOGY: Deparaffinized sections of prefer/formalin-fixed tissue or PAP/DQ stained slides are incubated with monoclonal/polyclonal antibodies/oligonucleotide probes. Localization is made via biotin free immunoperoxidase method. Appropriate controls are performed and reacted as expected. Results on target cell population are indicated in the following table: RESULTS: ANTIBODY / CLONE RESULT Block C H Pylori (polyclonal) negative These tests were developed and their performance characteristics determined by [facility]. They may not have been cleared or approved by the U.S. Food and Drug Administration. The FDA has determined that such clearance or approval is not necessary. The above immunohistochemical/dualISH markers are ordered and reviewed by the Pathologist. INTERPRETATION: C. Gastric antrum , biopsy; Negative for Helicobacter pylori organisms. DARLENE/ 12/23/2023
--- NOTE | 2023-12-22 14:57 | PCM.HP.BLA ---
History and Physical Date of Admission: 12/22/23 Date of Service: 12/14/23 MR#: [id number] Acct: [id number] Name: ROSELIA CERVANTES Rep #: [id number] : 1955 Provider: Dr. Cesar Reeves MD Age/Sex: 68/F Location: [facility] Status: Signed Intake Vital Signs 11/25/2411:50 12/13/2408:07 Height 5 ft 7 in 5 ft 7 in Weight: 189 lb 4 oz 192 lb BMI 29.6 30.0 BP 120/62 147/81 H Blood Pressure Location Lt brachial Rt brachial Position Sitting Sitting Respiration 16 17 Pulse 78 78 Pulse Source Monitor Monitor Temp 97.6 F L Temp Source Temporal Pulse Oximetry (%) 99 97 Oxygen Delivery Method room air room air Intake Visit Reasons: Gall Stones U/S 12/07 [facility] Chief Complaint: gallstones U/S 12/07 Is patient in pain?: Yes Allergies Environmental Allergies: Uncoded [dust] Allergy (Verified 12/14/23 09:08) Otherlisinopril Adverse Reaction (Verified 12/14/23 09:08) cough Medications calcium carbonate 600 mg-vitamin D3 10 mcg (400 unit) capsule (Calcium 600 with Vitamin D3) 1 cap PO DAILY 09/09/17 [History Confirmed 12/14/23] multivitamin 1 cap PO QDAY 09/09/17 [History Confirmed 12/14/23] lutein 20 mg capsule 20 mg PO QDAY #90 caps 08/06/19 [Rx Confirmed 12/14/23] aspirin 81 mg tablet,delayed release 81 mg PO DAILY 02/21/20 [History Confirmed 12/14/23] hydrocortisone 2.5 % topical cream 1 applic topical BID PRN skin irritation #30 grams 06/13/20 [Rx Confirmed 12/14/23] cetirizine 10 mg capsule (Zyrtec) 10 mg PO DAILY 10/28/20 [History Confirmed 12/14/23] turmeric 400 mg capsule 400 mg PO DAILY 10/28/20 [History Confirmed 12/14/23] acyclovir 400 mg tablet 400 mg PO BID PRN Cold Sores 02/26/22 [History Confirmed 12/14/23] cranberry 400 mg capsule 400 mg PO DAILY 02/26/22 [History Confirmed 12/14/23] hydrochlorothiazide 25 mg tablet 25 mg PO QDAY #90 tabs 04/26/23 [Rx Confirmed 12/14/23] levothyroxine 88 mcg tablet 88 mcg PO QHS #90 tabs 04/26/23 [Rx Confirmed 12/14/23] losartan 100 mg tablet 100 mg PO QDAY bp #90 tabs 04/26/23 [Rx Confirmed 12/14/23] rosuvastatin 10 mg tablet 10 mg PO QHS #90 tabs 05/04/23 [Rx Confirmed 12/14/23] amlodipine 2.5 mg tablet See Rx Instructions .Route .COMPLEX #90 tabs 07/18/23 [Rx Confirmed 12/14/23] potassium chloride 10 mEq capsule,extended release See Rx Instructions .Route .COMPLEX #180 caps 08/09/23 [Rx Confirmed 12/14/23] albuterol sulfate 90 mcg/actuation aerosol inhaler 2 puff inhalation PRN PRN ASTHMA #8.5 grams 11/25/23 [Rx Confirmed 12/14/23] PFSH Medical History Arthritis Asthma BiPAP (biphasic positive airway pressure) dependence Constipation Flu vaccine need Frequent UTI Health care maintenance High cholesterol History of echocardiogram Hyperlipidemia Hypertension Hypertension Hypothyroid Osteoarthritis Post-menopausal Prediabetes Seasonal allergies Seasonal allergies Shortness of breath on exertion Thyroid disease Thyroid nodule Trigger finger Trigger finger of both hands Type 2 diabetes mellitus Wears glasses Surgical History H/O tubal ligation History of carpal tunnel release History of hysteroscopy Hx of colonoscopy Hx of toe surgery Hx of tonsillectomy uterine ablasion Family History Mother Hypertension Heart disease Myocardial infarction age 87 Thyroid disorder HyperlipidemiaFather Hyperlipidemia Hypertension ArthritisAunt Breast cancer Social History Smoking Status: Never smoker alcohol intake: never substance use type: does not use what type of physical activity do you participate in: none HPI HPI HPI: Patient is a 68-year-old female who presents for evaluation of right upper quadrant discomfort. They are referred for surgical consultation from Mrs. Samara Sherman NP. Mrs. Cervantes is known to me from a prior consultation related to thyroid nodularity in [place] 21 she is without issue. She presents to today's visit with her daughter. With her present issue she describes right upper quadrant comfort food intake. This discomfort is described as a little pressure and they did last hours. She estimates that the onset of this discomfort is approximately 1 hour with no associated nausea, she shares that the symptoms have troubled her for the last 1 to 2 months off-and-on. She states that the afternoon and evening are worst for this discomfort. She has a history of heartburn but does not currently manage this with medication. She estimates that her frequency of symptoms with this issue is approximately 1 time per week. She estimates that she experiences the symptoms taking dinner at approximately 6 PM when the bed GERD/heartburn some recent constipation. She shares that it will regularly go 2 to 3 days between bowel movements. She describes increasing her fiber when she initially feels constipated and every once in a while will use a stool softener Patient had a ultrasound performed on 12/08/2023 to further investigate this issue. She was found to have multiple gallstones without evidence of biliary dilatation. Also accompanying this finding she was found to have fatty liver infiltration. Patient's only past surgical history from an abdominal perspective is a tubal ligation. ROS General General: No weight change, appetite, fatigue, colon cancer, breast cancer or weakness HEENT HEENT: No difficulty swallowing, eye injury, eye surgery, swollen glands or hoarseness Endo Endocrine: Yes thyroid disease; No diabetes mellitus, thyroid cancer, Hair loss, heat intolerance or cold intolerance Skin Skin: No rash or changing moles Musc Musculoskeletal: Yes arthritis; No back problems, rheumatoid arthritis, gout or joint pain Cardio Cardiovascular: Yes high blood pressure; No murmur, pacemaker, heart disease, atrial fibrillation, heart attack, heart stent, palpitations, shortness of breat with exertion or chest pain Psych Psychiatric: No depression, anxiety or hearing voices Resp Respiratory: No shortness of breath, Yes sleep apnea, No cough, No COPD, Yes asthma, No emphysema and No wheezing Gastro Gastrointestinal: Yes abdominal pain, No nausea or vomiting, No diarrhea, No constipation, No blood in stool, No acid reflux, No hemorrhoids, No ulcers, Yes gallbladder problem and No black,tarry stools Dominick Hematologic: No blood thinners, No blood disorders, No bleeding, No anemia and No blood clots Neuro Neurologic: No system reviewed and no additional complaints, except as documented, No as per HPI, No abnormal gait, No abnormal hearing, No abnormal movements, No abnormal speech, No behavioral changes, No burning sensations, No confusion, No convulsions, No disequilibrium, No dizziness, No localized weakness, No frequent falls, No headache(s), No lack of coordination, No loss of vision, No memory loss, No numbness, No other visual disturbances, No radicular pain, No restless legs, No sensory deficit, No syncope, No tingling, No tremor(s), No weakness and No other Exam Const General: cooperative and comfortable Orientation: alert, awake and oriented x3 Resp Effort & Inspection: normal respiratory effort GI Other: No scars, no evidence of hernia, nondistended, soft, mildly tender to palpation in the right upper quadrant (rated 2 out of 10 with deep palpation), negative Busch sign. Assessment and Plan Assessment and Plan (1) RUQ discomfort: Status: Acute Comment: Patient is a 68-year-old, otherwise healthy, female who presents for 1 to 2 months of somewhat nonspecific right upper quadrant discomfort. Patient has noted this to be postprandial in onset, but denies any particular food triggers. She also denies any associated symptoms. She was found to have gallstones on right upper quadrant ultrasound imaging, but the remainder of the ultrasound was normal apart from a finding of fatty liver infiltration. Her exam today is rather nonspecific and unremarkable. I have shared with her the incidence of cholelithiasis and and not yet convinced that her symptoms can be explained by diagnosis of symptomatic cholelithiasis. Instead, I have recommended we try to pursue things objectively but remain less invasive than surgery. I have recommended proceeding for EGD and in the meantime performing a food diary to see if there are any particular triggers for her discomfort. Initially, Mrs. Cervantes replied less than enthusiastically to this suggestion and stated that she simply did not want to wait until she had a true gallbladder attack. However, after clarifying my intent and desire to proceed with surgery only when there was more definitive evidence that it would be of benefit to her at worst the inherent risks she expressed appreciation for this recommendation and willingness to proceed as described. Plan: ? Diagnostic EGD to assess for possible peptic ulcer, hiatal hernia, H. pylori, etc.? ? Food diary ? Follow-up visit in early January (2) Gallstones: Status: Acute Comment: Patient with right upper quadrant ultrasound showing gallstones but patient's other reporting and findings are largely equivocal. Therefore, as above recommending more objective approach to patient's workup. Will reconsider possible cholecystectomy upon reviewing results of the above workup. Orders: I have examined the patient and the H&P has been reviewed. There are no clinical changes since date of exam last week. Patient denies any questions related to the procedure. Therefore we will be underway to the endoscopy suite for planned EGD as discussed above. Patient informed that any results will be communicated via telephone sometime next week.
--- NOTE | 2023-12-22 16:05 | OP.CCLET_ITS ---
12/22/2023 Sarah Mcgraw MD [address] [place] [address] [place] [address] Re : Upper GI endoscopy procedure for Ledy Steel Dear Dr. Mcgraw This procedure was performed on December. My impressions and recommendations are as follows: Impressions : - Erythematous duodenopathy. Biopsied. - Mucosal changes suspicious for duodenitis. Biopsied. - Erythematous mucosa in the antrum. Biopsied. - Erythematous mucosa in the greater curvature. Biopsied. - Multiple gastric polyps. Resected and retrieved. - Z-line regular, 37 cm from the incisors. Biopsied. - Small hiatal hernia. No specimens collected. - The examination was otherwise normal. Recommendations : - Discharge patient to home (via wheelchair). - Resume previous diet today. - Use Protonix (pantoprazole) 40 mg PO daily today. - Await pathology results. - Telephone my office for pathology results in 1 week. - No aspirin, ibuprofen, naproxen, or other non-steroidal anti-inflammatory drugs for 2 days after biopsy. My findings are described in the full procedure note, which is enclosed. If I can be of further assistance, please feel free to contact me at Doctor phone number(s): , Work: . Sincerely, Cesar Reeves MD 12/22/2023 4:04:27 PM This report has been signed electronically.
--- NOTE | 2023-12-22 16:05 | OP.EGD_ITS ---
Patient Name: Ledy Steel Procedure Date: 12/22/2023 2:10 PM Date of : 1955 Age: 68 Procedure: Upper GI endoscopy Indications: Abdominal pain in the right upper quadrant, Heartburn Providers: Cesar Reeves MD Referring MD: Sarah Mcgraw MD Medicines: See the Anesthesia note for documentation of the administered medications Patient Profile: Refer to note in patient chart for documentation of history and physical. Complications: No immediate complications. Estimated blood loss: Minimal. Procedure: Pre-Anesthesia Assessment: - The heart rate, respiratory rate, oxygen saturations, blood pressure, adequacy of pulmonary ventilation, and response to care were monitored throughout the procedure. After obtaining informed consent, the endoscope was passed under direct vision. Throughout the procedure, the patient's blood pressure, pulse, and oxygen saturations were monitored continuously. The gastroscope was introduced through the mouth, and advanced to the second part of duodenum. The upper GI endoscopy was somewhat difficult due to the patient's oxygen desaturation. Successful completion of the procedure was aided by withdrawing and reinserting the scope. The patient tolerated the procedure fairly well. Scope In: 3:03:54 PM Scope Out: 3:46:18 PM Total Procedure Duration Time 0 hours 42 minutes 24 seconds Findings: Localized moderately erythematous mucosa without active bleeding and with no stigmata of bleeding was found in the first portion of the duodenum. Biopsies were taken with a cold forceps for histology. Estimated blood loss was minimal. Localized mild inflammation characterized by erythema and friability was found in the duodenal bulb. Biopsies were taken with a cold forceps for histology. Estimated blood loss was minimal. Diffuse mildly erythematous mucosa without bleeding was found in the gastric antrum. Biopsies were taken with a cold forceps for Helicobacter pylori testing. Estimated blood loss was minimal. Diffuse moderately erythematous mucosa without bleeding was found on the greater curvature of the stomach. Biopsies were taken with a cold forceps for histology. Estimated blood loss was minimal. Multiple 2 to 4 mm pedunculated and sessile polyps with no bleeding and no stigmata of recent bleeding were found in the gastric fundus and in the gastric body. Polypectomy was attempted, initially using a piecemeal technique with a hot snare. Polyp resection was incomplete with this device. This intervention then required a different device and polypectomy technique. [Method]biopsy forcep. Resection and retrieval were complete. Estimated blood loss was minimal. The Z-line was regular and was found 37 cm from the incisors. Biopsies were taken with a cold forceps for histology. Estimated blood loss was minimal. A small hiatal hernia was present. No biopsies or other specimens were collected for this exam. The exam was otherwise without abnormality. Impression: - Erythematous duodenopathy. Biopsied. - Mucosal changes suspicious for duodenitis. Biopsied. - Erythematous mucosa in the antrum. Biopsied. - Erythematous mucosa in the greater curvature. Biopsied. - Multiple gastric polyps. Resected and retrieved. - Z-line regular, 37 cm from the incisors. Biopsied. - Small hiatal hernia. No specimens collected. - The examination was otherwise normal. Recommendation: - Discharge patient to home (via wheelchair). - Resume previous diet today. - Use Protonix (pantoprazole) 40 mg PO daily today. - Await pathology results. - Telephone my office for pathology results in 1 week. - No aspirin, ibuprofen, naproxen, or other non-steroidal anti-inflammatory drugs for 2 days after biopsy. Procedure Code(s): --- Professional --- 75901, Esophagogastroduodenoscopy, flexible, transoral; with biopsy, single or multiple Diagnosis Code(s): --- Professional --- R12, Heartburn R10.11, Right upper quadrant pain K44.9, Diaphragmatic hernia without obstruction or gangrene K31.7, Polyp of stomach and duodenum K31.89, Other diseases of stomach and duodenum CPT copyright 2021 [employer]. All rights reserved. The codes documented in this report are preliminary and upon physician coder review may be revised to meet current compliance requirements. Cesar Reeves MD 12/22/2023 4:04:27 PM This report has been signed electronically. Number of Addenda: 0 Note Initiated On: 12/22/2023 2:10 PM
== END 2023-12-22 16:59 | disposition home or self-care (01) ==
LOC: EN 11:59 → AC 12:00
PROVIDERS: PCP Internal Medicine; Referring Provider Internal Medicine; Visit Provider Surgery
PROC: 0DJ08ZZ Inspection of Upper Intestinal Tract, Via Natural or Artificial Opening Endoscopic (ICD-10-PCS; CPT 43235; principal; 2023-12-22 12:55)
DX: K31.7 Polyp of stomach and duodenum (principal); E11.9 Type 2 diabetes mellitus without complications; K44.9 Diaphragmatic hernia without obstruction or gangrene; I10 Essential (primary) hypertension; E07.9 Disorder of thyroid, unspecified; K76.0 Fatty (change of) liver, not elsewhere classified; E78.00 Pure hypercholesterolemia, unspecified; K21.9 Gastro-esophageal reflux disease without esophagitis; R10.11 Right upper quadrant pain; K31.89 Other diseases of stomach and duodenum; K29.70 Gastritis, unspecified, without bleeding
CPT/HCPCS: 43239; 88302; 88305; 88342; J7120; J2405

== ENCOUNTER → 2024-05-04 | Outpatient (CLI) | payer MEDICARE, SELFPAY ==
[2024-05-04 11:19] LABS: Absolute Lymphocyte Count 1.77 X10^3/uL (0.83-4.51); Absolute Neutrophil Count 2.6 X10^3/uL (2.0-7.7); Basophil# 0.06 X10^3/uL; Basophil% 1.2 % (0-1); Eosinophil# 0.24 X10^3/uL; Eosinophils% 4.6 % (0-5); Hematocrit 43.1 % (37-47); Hemoglobin 13.9 g/dL (12.0-15.0); Lymphocyte # 1.77 X10^3/ul (0.83-4.51); Mean Corp Hgb Conc 32.3 g/dL (32-36); Mean Corpuscular Hgb 30.1 pg (27.0-32.0); Mean Corpuscular Volume 93.3 fL (81-99); Mean Platelet Vol. 12.2 fl (6.2-12.0); Monocyte# 0.53 X10^3/uL; Monocyte% 10.2 % (0-10); NRBC Flagged by Analyzer 0 % (0-5); Neutrophil # 2.59 X10^3/uL (2.7-7.7); Neutrophil % 49.8 % (47-70); Platelet Count 194 K/mm3 (150-450); RBC Distribution Width CV 13.3 % (11.6-14.6); RBC Distribution Width SD 45.3 fl (35.1-43.9); Red Blood Count 4.62 M/mm3 (4.2-5.4); White Blood Count 5.2 K/mm3 (4.4-11.0)
[2024-05-04 11:29] LABS: ALB/GLOB Ratio 1.1 RATIO (0.9-2.4); AST(SGOT) 20 U/L (15-37); Alanine Aminotransfer ALT/SGPT 32 U/L (13-56); Albumin, Serum 3.6 g/dL (3.2-5.0); Alkaline Phosphatase 76 U/L (45-117); Anion Gap 6 (5-15); BUN 13 mg/dL (7-18); BUN/Creat Ratio 17.7 RATIO (10-20); Calcium,Total 9.1 mg/dL (8.5-10.1); Chloride 104 mmol/L (98-107); Cholesterol 146 mg/dL (200); Creatinine, Serum 0.73 mg/dL (0.55-1.02); EST Glomerular Filtration Rate 84 mL/min (>60); Est Glom Filt Rate - Afr Amer 101 mL/min (>60); Globulin 3.3 g/dL (2.2-4.2); Glucose 117 mg/dL (74-106); High Density Lipoprotein 52 mg/dL; Potassium 3.4 mmol/L (3.5-5.1); Protein, Total 6.9 g/dL (6.4-8.2); Sodium Level 138 mmol/L (136-145); Thyroid Stim Hormone (TSH) 2.77 uIU/mL (0.358-3.74); Triglycerides 96 mg/dL; Very Low Density Lipoprotein 19 mg/dL (5-40)
== END | disposition home or self-care (01) ==
LOC: BIMLAB 07:58
PROVIDERS: PCP Internal Medicine; Referring Provider Nurse Practitioner; Visit Provider Nurse Practitioner
DX: E78.5 Hyperlipidemia, unspecified (principal); I10 Essential (primary) hypertension; E03.9 Hypothyroidism, unspecified
CPT/HCPCS: 36415; 80053; 80061; 84443; 85025

== ENCOUNTER → 2024-06-07 | Outpatient (CLI) | payer MEDICARE, SELFPAY ==
--- NOTE | 2024-06-07 12:59 | US_ITS ---
STUDY: THYROID ULTRASOUND REASON FOR EXAM: Female, 69 years old. Screening examination. TECHNIQUE: Ultrasound evaluation of the thyroid was performed with real-time and static cam-scale imaging. COMPARISON: Comparison is made with prior sonogram dated May 27, 2023. FINDINGS: RIGHT LOBE: The right lobe of the thyroid gland measures 4.4 cm x 2 cm x 1.6 cm. There is a heterogeneous echotexture. Stable 1 cm x 1.1 cm x 0.8 cm solid slightly echogenic nodule with posterior acoustical shadowing suggesting calcifications. This is unchanged. LEFT LOBE: The left lobe of the thyroid gland measures 4.2 cm x 1.9 cm x 1.5 cm. There is a heterogeneous echotexture. There are no demonstrated solid, cystic or complex lesions. ISTHMUS: The isthmus measures 4 mm. The regional lymph nodes are normal. US/Thyroid IMPRESSION: Stable examination. Electronically Signed: Mariano Zuniga MD at 13:19 EDT ,
== END | disposition home or self-care (01) ==
LOC: US 12:59
PROVIDERS: PCP Internal Medicine; Referring Provider Surgery; Visit Provider Surgery
DX: E04.2 Nontoxic multinodular goiter (principal)
CPT/HCPCS: 76536

== ENCOUNTER → 2024-10-26 | Outpatient (CLI) | payer MEDICARE, SELFPAY ==
[2024-10-26 12:34] LABS: Anion Gap 10 (5-15); BUN 15 mg/dL (7-18); BUN/Creat Ratio 17.1 RATIO (10-20); Calcium,Total 9.2 mg/dL (8.5-10.1); Chloride 102 mmol/L (98-107); Creatinine, Serum 0.88 mg/dL (0.55-1.02); EST Glomerular Filtration Rate 68 mL/min (>60); Est Glom Filt Rate - Afr Amer 82 mL/min (>60); Glucose 178 mg/dL (74-106); Potassium 3.3 mmol/L (3.5-5.1); Sodium Level 136 mmol/L (136-145); Thyroid Stim Hormone (TSH) 0.779 uIU/mL (0.358-3.740)
[2024-10-26 13:36] LABS: Hemoglobin A1c 6.5 % (3.8-5.6)
== END | disposition home or self-care (01) ==
LOC: BIMLAB 10:51
PROVIDERS: PCP Internal Medicine; Referring Provider Internal Medicine; Visit Provider Internal Medicine
DX: I10 Essential (primary) hypertension (principal); R73.03 Prediabetes; E03.9 Hypothyroidism, unspecified
CPT/HCPCS: 36415; 80048; 83036; 84443

== ENCOUNTER → 2025-04-22 | Outpatient (CLI) | payer MEDICARE, SELFPAY ==
[2025-04-22 12:35] LABS: Hematocrit 44.5 % (37-47); Hemoglobin 14.5 g/dL (12.0-15.0); Immature Granulocytes Count 0.010 X10^3/uL (0.0-0.0); Mean Corp Hgb Conc 32.6 g/dL (32-36); Mean Corpuscular Volume 92.5 fL (81-99); Mean Platelet Vol. 12.2 fl (6.2-12.0); NRBC Flagged by Analyzer 0 % (0-5); Platelet Count 206 K/mm3 (150-450); RBC Distribution Width CV 13.7 % (11.6-14.6); RBC Distribution Width SD 46.9 fl (35.1-43.9); Red Blood Count 4.81 M/mm3 (4.2-5.4); White Blood Count 4.8 K/mm3 (4.4-11.0)
[2025-04-22 13:45] LABS: AST(SGOT) 21 U/L (<=31); Alanine Aminotransfer ALT/SGPT 22 U/L (<=34); Albumin, Serum 4.3 g/dL (3.4-4.8); Alkaline Phosphatase 84 U/L (35-104); Anion Gap 14 (5-15); BUN 12 mg/dL (4-19); BUN/Creat Ratio 15.5 RATIO (10-20); Calcium,Total 9.6 mg/dL (7.6-11.0); Carbon Dioxide 23.8 mmol/L (21.0-32.0); Chloride 100 mmol/L (98-108); Cholesterol 158 mg/dL (<=200); Globulin 2.7 g/dL (2.2-4.2); Glucose 141 mg/dL (70-99); Low Density Lipoprotein Calc. 77 mg/dL; Potassium 3.4 mmol/L (3.3-5.1); Triglycerides 131 mg/dL; Very Low Density Lipoprotein 26 mg/dL (5-40); cholesterol:hdl ratio screen 2.86
[2025-04-22 13:51] LABS: Vitamin D,25 Hydroxy 46.7 ng/mL (30-100)
== END | disposition home or self-care (01) ==
LOC: BIMLAB 09:17
PROVIDERS: PCP Internal Medicine; Referring Provider Internal Medicine; Visit Provider Internal Medicine
DX: I10 Essential (primary) hypertension (principal); E11.9 Type 2 diabetes mellitus without complications; M85.80 Other specified disorders of bone density and structure, unspecified site; Z78.0 Asymptomatic menopausal state
CPT/HCPCS: 36415; 80053; 80061; 82306; 83036; 84443; 85025

== ENCOUNTER → 2025-04-29 | Outpatient (CLI) | payer MEDICARE, SELFPAY | END | disposition home or self-care (01) | LOC: SL 13:19 | PROVIDERS: PCP Internal Medicine; Visit Provider Nurse Practitioner Acute Care | DX: Z46.89 Encounter for fitting and adjustment of other specified devices (principal) ==

== ENCOUNTER 2025-05-09 11:56 | Emergency (ER) | payer MEDICARE, SELFPAY ==
[2025-05-09 11:57] VITALS: BP 164/77; PULSE 73; RESP 14; TEMP 36.6; O2SAT 98
--- NOTE | 2025-05-09 12:14 | EDS_ITS ---
HPI <YCRUS Schmidt - Last Filed: 05/09/25 13:07> History of Present Illness Chief Complaint: Lower Extremity Injury Narrative Narrative: 70-year-old female was approximately 2 rungs up on a ladder when it started to sway and she fell landing on her hands and knees. No head injury or LOC. She has slight right wrist soreness but significant right knee pain and swelling and has been unable to walk. No weakness or paresthesias. She is not on blood thinners. PFSH <CYRUS Schmidt - Last Filed: 05/09/25 13:07> [facility] Medical History (Updated 05/09/25 @ 12:35 by CYRUS Schmidt) GERD (gastroesophageal reflux disease) Allergies Localized swelling on right hand Osteopenia Fatty liver Non-smoker Health care maintenance Trigger finger of both hands Type 2 diabetes mellitus Constipation Post-menopausal Wears glasses Thyroid disease High cholesterol BiPAP (biphasic positive airway pressure) dependence Shortness of breath on exertion History of echocardiogram Hypertension Trigger finger Frequent UTI Flu vaccine need Osteoarthritis Seasonal allergies Asthma Seasonal allergies Thyroid nodule Prediabetes Arthritis Hypothyroid Hyperlipidemia Hypertension Home Medications ?Medication ?Instructions ?Recorded ?Last Taken ?Type calcium 600 mg (as 1 cap PO DAILY 09/09/17 Unkn own History carbonate)-vitamin D3 10 mcg (400 unit) capsule (Calcium with Vitamin D3) multivitamin 1 cap PO QDAY 09/09/17 Unkno wn History lutein 20 mg capsule 20 mg PO QDAY #90 caps 08/06 Unknown Rx aspirin 81 mg tablet,delayed 81 mg PO DAILY 02/21/20 0 12/03/22 History release turmeric 400 mg capsule 400 mg PO DAILY 10/28/20 Unk nown History cranberry fruit 400 mg capsule 400 mg PO DAILY 2 Unknown History albuterol sulfate 90 mcg/actuation 2 puff inhalation P RN PRN ASTHMA 11/25/23 Unknown Rx aerosol inhaler #8.5 grams amlodipine 2.5 mg tablet 2.5 mg PO .COMPLEX 90 days # 90 tabs 10/26/24 Unknown Rx hydrochlorothiazide 25 mg tablet 25 mg PO QDAY #90 tab s 10/26/24 Unknown Rx levothyroxine 88 mcg tablet 88 mcg PO QHS #90 tabs Unknown Rx losartan 100 mg tablet 100 mg PO QDAY bp #90 tabs 0 10/26/24 Unknown Rx pantoprazole 40 mg tablet,delayed 40 mg PO QDAY #90 ta bs 10/26/24 Unknown Rx release potassium chloride 20 mEq 20 meq PO BID #180 tabs 10/04 01/25 Unknown Rx tablet,extended release rosuvastatin 10 mg tablet 10 mg PO QHS #90 tabs Unknown Rx hydrocodone-acetaminophen 5-325mg 1 tab PO Q6H PRN PRN Pain 3 days 05/09/25 Unknown Rx 5mg-325mg #10 TABLETS ondansetron 4 mg disintegrating 4 mg PO Q8H PRN PRN Na usea #10 tabs 05/09/25 Unknown Rx tablet Allergy/AdvReac Type Severity Reaction Status Date / Time Environmental Allergies: Allergy Other Verified 05/09/25 11:57 Uncoded (dust) lisinopril AdvReac cough Verified 05/09/25 11:57 Family History Mother Hypertension Heart disease Myocardial infarction age 87 Thyroid disorder Hyperlipidemia Father Hyperlipidemia Hypertension Arthritis Aunt Breast cancer Surgical History Hx of toe surgery Hx of colonoscopy History of hysteroscopy History of carpal tunnel release uterine ablasion Hx of tonsillectomy H/O tubal ligation Social History Smoking Status: Never smoker alcohol intake: never substance use type: does not use what type of physical activity do you participate in: none ROS <CYRUS Schmidt - Last Filed: 05/09/25 13:07> ROS ED ROS Narrative CVS: Negative for chest pain. Respiratory: Negative for shortness of breath. Neuro: Negative for motor/sensory dysfunction. Musc: Positive for right knee pain, swelling, trauma. EXAM <CYRUS Schmidt - Last Filed: 05/09/25 13:07> Physical Exam Narrative Exam Narrative: CONST: Patient sitting in no acute distress. EYES: Normal inspection. NECK: Normal inspection. RESP: No respiratory distress, CTAB. CVS: Regular rate and rhythm, no murmur, no gallop. SKIN: Color normal, no rash, warm, dry, intact. EXTREMITIES: Normal appearance of upper extremities, full range of motion, no bony tenderness, 2+ radial pulses. Lower extremities appear symmetric without gross trauma or deformity, red ray on the right knee from the fall without abrasion or laceration, mild swelling and tenderness over the patella, normal extension. No other bony tenderness present. 2+ PT pulses. NEURO: Alert and answering questions appropriately. PSYCH: Normal affect. Const Vital Signs: 05/09/25 11:57 05/09/25 13:22 Temperature 98 F 98 F Temperature Source Temporal Pulse Rate 73 78 Respiratory Rate 14 16 Blood Pressure 164/77 H 167/74 H Blood Pressure Mean 106 105 Pulse Ox 98 99 Oxygen Delivery Method Room Air <Dr. Saurav Jason, DO - Last Filed: 05/09/25 16:43> Physical Exam Const Vital Signs: 05/09/25 11:57 05/09/25 13:22 Temperature 98 F 98 F Temperature Source Temporal Pulse Rate 73 78 Respiratory Rate 14 16 Blood Pressure 164/77 H 167/74 H Blood Pressure Mean 106 105 Pulse Ox 98 99 Oxygen Delivery Method Room Air MDM <CYRUS Schmidt - Last Filed: 05/09/25 13:07> [facility] Narrative Medical decision making narrative: History gathered from: Patient and daughter Differential: Knee contusion, fracture 70-year-old female fell off a ladder from 2 rungs up. No head injury. She has right knee pain, swelling, and is unable to ambulate. She is tender over the medial knee but there is no gross trauma or deformity. Distally neurovascularly intact. X-ray shows acute comminuted tibial plateau fracture so she was placed in a knee immobilizer and provided with a walker. I advised her to be nonweightbearing and follow-up with orthopedics. She is established with Dr. Yang and will call for an appointment. I prescribed [place] for breakthrough pain. She states she is comfortable going home and was discharged in stable condition. Lab Data Attestation: I reviewed the patient's lab results. Radiography Diagnostic Testing: Clinical Impression(s) from Imaging Studies Knee X-Ray 05/09/25 12:15 IMPRESSION: Acute comminuted tibial plateau fracture - Schatzker type . Reading Location: [id number] <Dr. Saurav Jason, DO - Last Filed: 05/09/25 16:43> MDM Radiography Diagnostic Testing: Clinical Impression(s) from Imaging Studies Knee X-Ray 05/09/25 12:15 IMPRESSION: Acute comminuted tibial plateau fracture - Schatzker type . Reading Location: [facility] Treatment and Re-Evaluation :: I have personally performed a face to face assessment of the patient and have reviewed the CARYL Note. I performed a substantive portion of the visit including all aspects of the following. My henderson findings include: History: Patient presents with a right knee injury that occurred today. Patient states she fell from the bottom 2 rungs of a ladder and landed on her right knee. Patient states she was unable to bear weight after the fall. Patient states she had to crawl on the floor after the fall. Patient describes her pain as aching and throbbing. Patient states it is worse with movement. Patient denies any paresthesias or weakness. Patient denies any head injury or loss of consciousness. Patient denies any other injuries. Exam: Vital signs are stable. Patient afebrile. Patient no acute distress. Musculoskeletal exam reveals tenderness over the right knee. There is a right knee effusion. Range of motion was limited in all motions of the right knee secondary to pain. Extensor mechanism is intact. Pedal pulses are equal bilaterally. Sensation was intact to light touch bilaterally in the lower extremities. There is no calf tenderness noted. Medical Decision Making: Differential diagnosis includes fracture, sprain, contusion. X-rays of the right knee will be obtained to assess for fracture. X-rays of the right knee were obtained. There are 4 views. On my independent interpretation, there is a nondisplaced tibial plateau fracture. There is some mild soft tissue swelling noted. Radiologist also interpreted the x-ray and agrees. Patient was given a knee immobilizer. Patient was instructed to remain nonweightbearing. Patient was instructed to ice and elevate the right knee. Patient states she has seen Dr. Yang in the past for carpal tunnel surgery. Patient was instructed to follow-up with him in 3 to 5 days. Patient and family understood and were agreeable with the plan. All questions were answered. Discharge Plan Triage Chief Complaint: Lower Extremity Injury ED Midlevel Provider: Susan Godoy ED Provider: Saurav Jason Dx/Rx/DC Orders Clinical Impression: Closed fracture of right tibial plateau, Fall from ladder Instructions: ED Fracture, Knee Prescriptions: New hydrocodone-acetaminophen 5-325 mg tablet 1 tab PO Q6H PRN PRN (Reason: Pain) 3 Days Qty: 10 0RF ondansetron 4 mg tablet,disintegrating 4 mg PO Q8H PRN PRN (Reason: Nausea) Qty: 10 0RF No Action calcium carbonate-vitamin D3 [Calcium 600 with Vitamin D3] 600 mg(1,500mg) - 400 unit capsule 1 cap PO DAILY multivitamin capsule 1 cap PO QDAY aspirin 81 mg tablet,delayed release (DR/EC) 81 mg PO DAILY turmeric 400 mg capsule 400 mg PO DAILY cranberry fruit 400 mg capsule 400 mg PO DAILY Rx Instructions: administer with a meal albuterol sulfate 90 mcg/actuation HFA aerosol inhaler 2 puff INHALATION PRN PRN (Reason: ASTHMA) Qty: 8.5 1RF amlodipine 2.5 mg tablet 2.5 mg PO .COMPLEX 90 Days Qty: 90 1RF Rx Instructions: 2.5 mg orally; hydrochlorothiazide 25 mg tablet 25 mg PO QDAY Qty: 90 1RF levothyroxine 88 mcg tablet 88 mcg PO QHS Qty: 90 1RF losartan 100 mg tablet 100 mg PO QDAY Qty: 90 1RF pantoprazole 40 mg tablet,delayed release (DR/EC) 40 mg PO QDAY Qty: 90 1RF rosuvastatin 10 mg tablet 10 mg PO QHS Qty: 90 1RF lutein 20 mg capsule 20 mg PO QDAY Qty: 90 0RF potassium chloride 20 mEq tablet extended release 20 meq PO BID Qty: 180 1RF Primary Care Provider: Sarah Mcgraw Referrals: re [Other] cindy [Other] anat [Other] tiesha [Other] Sarah Mcgraw MD [Primary Care Provider] - Talat Yang DO [Med Staff - Active Staff] - Activity Restrictions/Additional Instructions: The X-ray shows you have a fracture in your knee called a tibial plateau fracture. Keep the knee immobilizer on at all times unless bathing and do not put any weight on your leg. Alternate Tylenol and ibuprofen as needed, or use the [place] for severe breakthrough pain. Notes that [place] causes nausea, sedation, and constipation so I recommend using a stool softener or MiraLAX while taking it. Call the orthopedic doctor for an appointment. Print Language: Romanian Disposition Disposition: Home, Self Care Discharge Date/Time: 05/09/25 13:28
--- NOTE | 2025-05-09 12:15 | RAD_ITS ---
PROCEDURE: KNEE 4 OR MORE VIEWS 05/09/2025 REASON FOR EXAM: PAIN. TECHNIQUE: KNEE 4 OR MORE VIEWS Laterality: Right COMPARISON: None. FINDINGS: BONES: Comminuted bicondylar intra-articular tibial plateau fracture which extends across the metadiaphysis. Approximately 7.0 mm lateral tibial plateau depression. JOINTS: Suprapatellar joint effusion. No dislocation. The joint spaces are preserved. SOFT TISSUES: Soft tissue swelling of the medial and lateral knee. RAD/Knee 4 or More Views IMPRESSION: Acute comminuted tibial plateau fracture - Schatzker type . Reading Location: [id number]
[2025-05-09] MEDS: HYDROcodone Bitartrate/Apap 5/325 Tablet PO (12:18)
[2025-05-09 12:40] VITALS: BMI 29.5
[2025-05-09 13:22] VITALS: BP 167/74; PULSE 78; RESP 16; TEMP 36.6; O2SAT 99
== END 2025-05-09 13:28 | disposition home or self-care (01) ==
PROVIDERS: Emergency Provider Emergency Medicine; PCP Internal Medicine; Referring Provider Emergency Medicine; Visit Provider Emergency Medicine
DX: S82.144A Nondisplaced bicondylar fracture of right tibia, initial encounter for closed fracture (principal); E11.9 Type 2 diabetes mellitus without complications; K21.9 Gastro-esophageal reflux disease without esophagitis; E78.00 Pure hypercholesterolemia, unspecified; J45.909 Unspecified asthma, uncomplicated; I10 Essential (primary) hypertension; W11.XXXA Fall on and from ladder, initial encounter
CPT/HCPCS: 73564; 99283

== ENCOUNTER → 2025-07-22 | Outpatient (CLI) | payer MEDICARE, SELFPAY ==
--- NOTE | 2025-07-22 11:44 | US_ITS ---
PROCEDURE: THYROID 07/22/2025 REASON FOR EXAM: MULTIPLE THYROID NODULES TECHNIQUE: Procedure Code: USTHY Modality: US Procedure: THYROID COMPARISON: None FINDINGS: Right thyroid lobe size: 4.6 cm x 1.9 cm 1.5 Left thyroid lobe size: 3.6 cm x 1 5 cm x 1.2 cm Isthmus: 0.3 cm Background parenchymal echotexture is heterogeneous Nodules: . Lobe: Right, Location: Midpole, Size: 1 cm x 1 cm x 0.7 cm, Stability: N/A Composition: Solid or almost completely solid (+2) Echogenicity: Hypoechoic (+2) Margin: Smooth (+0) Shape: Wider than tall (+0) Echogenic Foci: None (+0) TI-RADS: 4 US/Thyroid IMPRESSION: Heterogeneous echotexture of the thyroid. 1 cm x 1 cm x 0.7 cm hypoechoic solid nodule in the midpole of the right lobe o f the thyroid with peripheral calcification. TI-RADS category 4. RECOMMENDATION: Based on most suspicious nodule. Nodule size = largest diameter Only evaluate nodule if =>5 mm. Growth > 20% in 2 dimensions = worsening. Follow up to 4 nodules. Recommend biopsy for no more than 2 nodules. Reading Location: [place] [id number]
== END | disposition home or self-care (01) ==
LOC: US 11:41
PROVIDERS: PCP Internal Medicine; Referring Provider Surgery; Visit Provider Surgery
DX: E04.2 Nontoxic multinodular goiter (principal)
CPT/HCPCS: 76536

== ENCOUNTER 2025-07-31 10:00 | Outpatient (RCR) | payer MEDICARE, SELFPAY ==
--- NOTE | 2025-07-02 12:18 | HP.PTEVAL_ITS ---
Patient's Visit Information Visit Information Visit Information: ROSELIA CERVANTES is a 70 year old F referred to Physical Therapy by Dr. Saurav Virk MD with a diagnosis of Closed fx R tibial plateau. Date of Evaluation: 07/02/25 Physical Therapist: Saurav Stone, DPT, OCS, CSCS Visit Plan Frequency: 3x /Week Duration: 4-6 Weeks Plan: 3x/week for 4-6 weeks IE HEP WBAT R, and progress to tolerance. using wh walker to start., AP, LAQ throughout day, heel slide 10x 2x/day all with pics. treat with : A/PROM aggressive to R knee, scar massage R LE, rollout quad and gastroc and HS. strength R LE SLR through standing through funcitonal. Progfress gait as safety allows to cane and no AD. ice as needed. Progress HEP Subjective Subjective: Fell and broke leg 05/09 , 05/16 pins and plates. R tibia. Using WC since, NWB. Pivot trasnfer. Now released to walk again today. Healing well. minimal pain, mostly achy much of time if sits too long or stays still too long. sleep is OK now but wakes up and moves and gets back to sleep. Lives with and dtr and someone is with her all day. Has walker but not used it yet as well as rollator. Did not neeed prior to fall. Spent day gardeening, friends and all I including washing windows. Fell off ladder while washing window is how this happened. Ladder started sinking. No regular ex, just active. Basic ADLs now dressing, needs help out of tub for shower, abthroom I. Pain R leg: Pain Intensity (Out of 10): 0 Pain Intensity Range: 0 and 3 Objective Objective: Pushed back to PT in [place] as she has not born weight yet. Transfer to stadn I with UE. stand at walker less weight throught R but I, can stand without UE I eo and ec, walks with wh walker WBAT R with short L step length and short stance time R but mod I 300 feet today. steps up and down with L leg only and two rails, one flight SBA. Stand to sit with UE I. bed trasnfer I. R knee AROM -3-103, 0 lag on SLR. L knee 0-130 incisons post at calf and lateral are mildly hard and moderate scarring, feel tight, no signs of redness heat and only mild swelling today . AROM DF R -4, others ankle wNL R and L. Hip AROM B WFL. reflexes 2/3 patella and achilles B sensation WNl to gross lgiht touch B. Able to ambulate with walkr on just L UE 10 feet but more hesitant. Ankle strength 4- R and 4 L, knee 3+ R ext and flexion adn 4 L, hip is 3+ R and 4- L. Balance/Special Test Scores Lower Extremity Functional Score: 36 Goals Goal 1:: AROm r knee 0-125 without pain Goal Time Frame: 2-4 Weeks Goal 2:: walk without AD community safely adn I and FGA 24 Goal Time Frame: 4-6 Weeks Goal 3:: stps reciprocally with one rail easily Goal Time Frame: 4-6 Weeks Goal 4:: sleep through night without waking Goal Time Frame: 2-4 Weeks Goal 5:: I appropriate HEP to limit future problems Goal Time Frame: 4-6 Weeks Goal 6:: Pt feel back to 95% of normal activities Goal Time Frame: 4-6 Weeks Rehabilitation Potential Physical Therapy Diagnosis: limited ROM, strnegth and limited gait causing mobility concerns after recent fx. Rehabilitation Potential: Good Anticipated Interventions Patient/Client Instruction: Educate patient on: Condition and Plan of Care For the Purpose of:: To decrease pain, To increase ROM, To improve nutrient delivery to tissue, To improve muscle performance and motor function, To increase tolerance to activity/condition/position, To improve ability of physical actions for home/community/work/leisure and To improve gait and locomo tor functions Therapeutic Exercise to Include: Strength training, Postural training, Flexibilty training, Gait and locomotor training, Passive ROM and Active ROM For the Purpose of:: To decrease pain, To increase ROM, To improve nutrient delivery to tissue, To improve muscle performance and motor function, To increase tolerance to activity/condition/position, To improve ability of physical actions for home/community/work/leisure and To improve gait and locomotor functions Manual Therapy Techniques to Include: Scar massage, Mobilization, Passive ROM and Soft tissue mobilization For the Purpose of:: To increase ROM and To improve nutrient delivery to tissue Cryotherapy (ice pack, ice massage): Yes For the Purpose of:: To decrease swelling/inflammation Text: Thank you for the opportunity to evaluate your patient. For Medicare and Medicare HMO plans, please review the plan of care and approve it. It will need to be FAXED BACK to us at [phone] for Medicare purposes. For Medicare only, by signing this I certify the plan of care. Please let me know if there are questions or concerns regarding this plan of care. Physician Signature: Date:
--- NOTE | 2025-07-31 10:47 | HP.PTDCSUM ---
Discharge Summary D/C summary: It has been my pleasure to treat ROSELIA CERVANTES referred by CYRUS Stahl, with the diagnosis of Closed fx R tibial plateau for a total of 13 visit(s). Discharge Date: 07/31/25 Please see the following information for a summary of their discharge status. Subjective Subjective: Geetting better. I can walk. Occasional pain. Hurts if move it too much, wakes up with pain. Sharp pain now and then insidiously. Activities: stilla voids getting down on floor. Normal steps adn mobility outside of floor. Lif is pretty normal. To doctor 08/13. HEP:not overly compliant. Pain R leg: Pain Intensity (Out of 10): 3 Overall Improvement % Improvement: 95 Objective Objective/Function: Walking well. steps reciprocal with one rail. On and off floor I with UE supprot. 0-118 AROM today. overall ready to be done and will continue at home. Goals Goal 1:: AROm r knee 0-125 without pain Goal Progress: 0-118 Goal 2:: walk without AD community safely adn I and FGA 24 Goal Progress: Goal Met Goal 3:: stps reciprocally with one rail easily Goal Progress: Goal Met Goal 4:: sleep through night without waking Goal Progress: difficult Goal 5:: I appropriate HEP to limit future problems Goal Progress: Goal Met Goal 6:: Pt feel back to 95% of normal activities Goal Progress: met Plan Plan: d/c D/C Information Discharge Comments: Pt to continue HEP including step ups with rail. d/c sentence: If there are questions or concerns regarding this patient's physical therapy, please feel free to call me at [phone]. Thank you for the referral of this patient. Sincerely, Saurav Stone, DPT, OCS, CSCS Balance/Gait/Functional tests Balance/Special Test Scores Lower Extremity Functional Score: 67 Improvement % Improvement: 95
== END 2025-07-31 19:00 | disposition home or self-care (01) ==
LOC: PT 10:00
PROVIDERS: PCP Internal Medicine; Referring Provider Physician Assistant; Visit Provider Physician Assistant
DX: S82.141D Displaced bicondylar fracture of right tibia, subsequent encounter for closed fracture with routine healing (principal)
CPT/HCPCS: 97110; 97116; 97162; 97164